=== PATIENT | male | born 1945 | race Hispanic/Latino ===

== ENCOUNTER 2017-06-09 18:57 | Emergency (ER) | payer MEDICARE ==
[2017-06-09 19:11] VITALS: RESP 18; TEMP 98.4; BMI 30.7
--- NOTE | 2017-06-09 19:44 | ED PDOC ---
Arrival/HPI - General Historian: Patient - History of Present Illness Time/Duration: < month - General Chief Complaint: Abnormal Skin Integrity Time Seen by Provider: 06/09/17 19:22 - History of Present Illness Narrative History of Present Illness (Text): 06/09/17 19:43 72 year old male with past medical history of Hyperlipidemia and CAD presents with right lower extremity swelling. Patient accidentally poured hot water on his right leg one month ago. Patient states his leg has been red and swelled up since then. Two weeks ago patient tripped and fell on his knees 2 weeks ago. Patient states the wounds are healing well, and denies having any pain. He further denies having headache, fever, chills, shortness of breath, chest pain, abdominal pain, nausea, vomiting, diarrhea or urinary symptoms. (Angelina Artis) Past Medical History - Provider Review Nursing Documentation Reviewed: Yes - Tetanus Immunization Tetanus Immunization: Unknown - Past Medical History Past Medical History: No Previous - Psychiatric Hx Substance Use: No - Surgical History Hx Open Heart Surgery: Yes - Suicidal Assessment Feels Threatened In Home Enviroment: No Family/Social History - Physician Review Nursing Documentation Reviewed: Yes Family/Social History: Unknown Family HX Smoking Status: Never Smoked Hx Alcohol Use: Yes Frequency of alcohol use: Socially Hx Substance Use: No Hx Substance Use Treatment: No Allergies/Home Meds Allergies/Adverse Reactions: Allergies No Known Allergies Allergy (Verified 06/09/17 19:11) Home Medications: Home Meds Medication Instructions Recorded Confirmed Simvastatin [Simvastatin] 10 mg PO DAILY 06/09/17 06/09/17 Review of Systems - Physician Review All systems were reviewed & negative as marked: Yes - Review of Systems Constitutional: Normal. absent: Fatigue, Weight Change, Fevers Eyes: Normal. absent: Vision Changes ENT: Normal. absent: Hearing Changes Respiratory: Normal. absent: SOB, Cough, Wheezing Cardiovascular: Normal. absent: Chest Pain, Palpitations Gastrointestinal: Normal. absent: Abdominal Pain, Diarrhea, Nausea, Vomiting Genitourinary Male: Normal. absent: Dysuria, Frequency Musculoskeletal: Other. absent: Arthralgias, Back Pain, Neck Pain (right lower extremity swelling) Skin: Other (right lower extremity redness) Neurological: Normal. absent: Headache, Speech Changes Endocrine: Normal Hemo/Lymphatic: Normal Psychiatric: Normal Physical Exam Vital Signs Reviewed: Yes Temperature: Afebrile Blood Pressure: Normal Pulse: Tachycardic Respiratory Rate: Normal Appearance: Positive for: Well-Appearing, Non-Toxic, Comfortable Pain Distress: None Mental Status: Positive for: Alert and Oriented X 3 - Systems Exam Head: Present: Atraumatic, Normocephalic Pupils: Present: PERRL Extroacular Muscles: Present: EOMI Conjunctiva: Present: Normal Mouth: Present: Moist Mucous Membranes Neck: Present: Normal Range of Motion Respiratory/Chest: Present: Clear to Auscultation, Good Air Exchange. No: Respiratory Distress, Accessory Muscle Use Cardiovascular: Present: Regular Rate and Rhythm, Normal S1, S2. No: Murmurs Abdomen: Present: Normal Bowel Sounds. No: Tenderness, Distention, Peritoneal Signs Upper Extremity: Present: Normal Inspection, NORMAL PULSES, Neurovascularly Intact. No: Cyanosis, Edema Lower Extremity: Present: Edema (1+ on RLE), Swelling (RLE), Erythema (RLE), Temperature Abnormalties (RLE warm compared to LLE), Neurovascularly Intact, Other (B/L Knee abrasion wounds healing well). No: Deformity Neurological: Present: GCS=15, CN II-XII Intact, Speech Normal Skin: Present: Warm, Dry Psychiatric: Present: Alert, Oriented x 3, Normal Insight, Normal Concentration Medical Decision Making ED Course and Treatment: 06/09/17 20:05 -RLE venous u/s -Reassess and disposition DDx: Cellulitis, DVT, First degree burn 06/09/17 20:56 RLE Venous U/S negative for DVT 72 year old male presents with right lower extremity swelling and redness. Based on history of physical examination, patient's presenting symptom is consistent with diagnosis of cellulitis. (Angelina Artis) Patient Seen With Resident: In agreement with resident note except as below. Patient was seen and evaluated with resident, came up with plan and treatment together. A 72 year old male presents to the emergency department with right leg swelling and redness that he is unsure when it began. On exam, R lower leg mild erythema, edematous, warm to touch. Doppler negative, will treat with antibiotics for cellulitis, patient states he can follow up with PMD this week, instructed to return to ER for fever , chills, dyspnea, worsening erythema. (Jordi Gaston) - RAD Interpretation Radiology Orders: 06/09/17 19:40 DUPLEX LOWER EXTRM VEIN RIGHT [US] Stat - PA / SENIOR CONSULTANT / Resident Statement MD/DO has reviewed & agrees with the documentation as recorded. MD/DO has examined the patient and agrees with the treatment plan. Disposition/Present on Arrival - Present on Arrival Any Indicators Present on Arrival: No History of DVT/PE: No History of Uncontrolled Diabetes: No Urinary Catheter: No History of Decub. Ulcer: No History Surgical Site Infection Following: None - Disposition Have Diagnosis and Disposition been Completed?: Yes Disposition Time: 20:58 Patient Plan: Discharge - Disposition Diagnosis: Right leg swelling, Cellulitis and abscess of right leg Disposition: HOME/ ROUTINE Patient Problems: Current Active Problems Problem Status Onset Cellulitis and abscess of right leg Acute Right leg swelling Acute Condition: STABLE Discharge Instructions (ExitCare): Cellulitis (ED) Additional Instructions: Scott Tadeo, thank you for letting us take care of you today. Your provider was Dr. Gaston. You were treated for right leg swelling. The emergency medical care you received today was directed at your acute symptoms. If you were prescribed any medication, please fill it and take as directed. It may take several days for your symptoms to resolve. Return to the Emergency Department if your symptoms worsen, do not improve, or if you have any other problems. Please contact your doctor or call one of the physicians/clinics you have been referred to that are listed on the Patient Visit Information form that is included in your discharge packet. Bring any paperwork you were given at discharge with you along with any medications you are taking to your follow up visit. Our treatment cannot replace ongoing medical care by a primary care provider (PCP) outside of the emergency department. Please take antibiotics as prescribed and follow up with your PMD. Thank you for allowing the [facility] team to be part of your care today. Prescriptions: Cephalexin [cephalexin] 500 mg PO TID #30 cap Sulfamethoxazole/Trimethoprim [Bactrim DS 800 mg-160 mg] 1 tab PO BID #20 tab Referrals: Weston Mcrae, [Primary Care Provider] - Follow up with primary
[2017-06-09 21:18] VITALS: BP 134/80; PULSE 85; O2SAT 100
--- NOTE | 2017-06-10 08:56 | US ---
PROCEDURE: Right lower extremity venous US HISTORY: Leg pain and swelling. Evaluate for DVT. PHYSICIAN(S): Genaro Ellis M.D. TECHNIQUE: Duplex sonography and color-flow Doppler with graded compression were used to evaluate the deep venous system of the right lower extremity. FINDINGS: The visualized deep venous system of the right lower extremity is sonographically normal and compressible. Normal waveforms and augmentation are seen. There is no sonographic evidence for deep venous thrombosis in the visualized segments of the right lower extremity. IMPRESSION: 1. No sonographic evidence for deep venous thrombosis in the visualized segments of the right lower extremity.
== END 2017-06-09 21:19 | disposition home or self-care (01) ==
LOC: ED 18:57
DX: L03.115 Cellulitis of right lower limb (principal)

== ENCOUNTER 2017-06-30 21:06 | Emergency (ER) | payer MEDICARE ==
[2017-06-30 21:18] VITALS: BMI 31.4
[2017-06-30 21:21] VITALS: BP 139/94
--- NOTE | 2017-06-30 21:26 | ED PDOC ---
Arrival/HPI - General Historian: Patient - History of Present Illness Time/Duration: > month Symptom Onset: Gradual Symptom Course: Unchanged Severity Level: 1 Activities at Onset: Rest <Vic Wolfe - Last Filed: 06/30/17 23:37> <Kel Thomas - Last Filed: 06/30/17 23:41> - General Chief Complaint: Lower Extremity Problem/Injury Time Seen by Provider: 06/30/17 21:11 - History of Present Illness Narrative History of Present Illness (Text): 06/30/17 21:24 72 yo M with no significant PMHx here for evaluation of right lower leg swelling and erythema. Patient states that he was here last month for the same problems. He states that he had a lower extremity Ultrasound which was negative and was discharged home with 2 antibiotics (Cephalexin and Bactrim x10 days). He finished the course of both antibiotics. He denies any complaints. No fever, No chills. Does not recall if previous erythema ever resolved. States that his friend looked at his leg today and urged him to return to the Emergency department for further evaluation. No pain. No discomfort. Denies any complaints. He does report multiple mechanical falls and trauma to bilateral lower extremities in the past. No loss of consciousness. PMHx: denies PSHX: denies NKDA (Vic Wolfe) Past Medical History - Provider Review Nursing Documentation Reviewed: Yes - Past History Past History: No Previous - Tetanus Immunization Tetanus Immunization: Unknown - Past Medical History Past Medical History: No Previous - Psychiatric Hx Substance Use: No - Surgical History Hx Open Heart Surgery: Yes - Anesthesia Hx Anesthesia: No - Suicidal Assessment Feels Threatened In Home Enviroment: No <Vic Wolfe - Last Filed: 06/30/17 23:37> Family/Social History - Physician Review Nursing Documentation Reviewed: Yes Family/Social History: No Known Family HX Smoking Status: Never Smoked Hx Alcohol Use: Yes Hx Substance Use: No Hx Substance Use Treatment: No <Vic Wolfe - Last Filed: 06/30/17 23:37> Allergies/Home Meds <Vic Wolfe - Last Filed: 06/30/17 23:37> <Kel Thomas - Last Filed: 06/30/17 23:41> Allergies/Adverse Reactions: Allergies No Known Allergies Allergy (Verified 06/30/17 21:17) Home Medications: Home Meds Medication Instructions Recorded Confirmed Simvastatin [Simvastatin] 10 mg PO DAILY 06/09/17 06/30/17 Review of Systems - Physician Review All systems were reviewed & negative as marked: Yes - Review of Systems Constitutional: absent: Fatigue, Fevers Eyes: absent: Vision Changes ENT: absent: Tinnitus Respiratory: absent: SOB, Cough Cardiovascular: absent: Chest Pain, Calf Pain Gastrointestinal: absent: Abdominal Pain, Diarrhea, Nausea, Vomiting Genitourinary Male: absent: Dysuria Musculoskeletal: Other (right lower extremity swelling and erythema) Skin: Cellulitis (RLE) Neurological: Normal Endocrine: Normal Hemo/Lymphatic: Normal Psychiatric: Normal <Vic Wolfe - Last Filed: 06/30/17 23:37> Physical Exam Vital Signs Reviewed: Yes Temperature: Afebrile Blood Pressure: Hypertensive Pulse: Tachycardic Respiratory Rate: Normal Appearance: Positive for: Well-Appearing, Non-Toxic, Comfortable Pain Distress: None Mental Status: Positive for: Alert and Oriented X 3 - Systems Exam Head: Present: Atraumatic, Normocephalic Extroacular Muscles: Present: EOMI Mouth: Present: Moist Mucous Membranes Neck: Present: Normal Range of Motion. No: JVD Respiratory/Chest: Present: Clear to Auscultation, Good Air Exchange. No: Respiratory Distress, Accessory Muscle Use Cardiovascular: Present: Normal S1, S2. No: Murmurs Abdomen: Present: Tenderness Upper Extremity: Present: Normal Inspection. No: Edema Lower Extremity: Present: Other (Right mcclain mild erythema, right foot mild erythema. Right Calf swelling. No tenderness. ). No: CALF TENDERNESS Neurological: Present: GCS=15 Skin: Present: Warm, Dry, Other (mild erythema right lower mcclain and foot. No tenderness to ) Psychiatric: Present: Alert, Oriented x 3 <Vic Wolfe - Last Filed: 06/30/17 23:37> Medical Decision Making <Vic Wolfe - Last Filed: 06/30/17 23:37> <Kel Thomas - Last Filed: 06/30/17 23:41> ED Course and Treatment: 06/30/17 21:51 72yo M with Right lower extremity swelling and erythema. - Negative DVT study 1 month ago - Possible Cellulitis - Repeat Lower extremity Duplex study - Obtain RLE xrays - Reassess and dispo 06/30/17 22:51 Duplex study prelim negative DVT study (Vic Wolfe) Patient Seen With Resident: In agreement with resident note which contains more details about the patient. Patient was seen and evaluated with resident. Came up with plan and treatment together. A 72 year old male with right lower leg swelling. Additional HPI as noted by resident. On physical exam, patient has right mcclain and foot mild erythema and right calf swelling, no tenderness. Ordered ultrasound of lower extremity and radiology of right ankle and right tibia fibula. 06/30/17 23:35 Exam with minimal erythema but no warmth; swelling is present. X-ray shows old healing fibula fx. Sono negative for DVT. Finished course of abx of keflex and bactrim with no change. It is more likely uninfected. The patient has no pain - will d/c and have him f/u with wound assessment with podiatry. No findings to suggest abx use at this time. (Kel Thomas) - RAD Interpretation Radiology Orders: 06/30/17 21:18 DUPLEX LOWER EXTRM VEIN BILAT [US] Stat 06/30/17 21:27 ANKLE RIGHT 3 VIEWS ROUTINE [RAD] Stat TIBIA FIBULA RIGHT [RAD] Stat - PA / MYSQL DBA / Resident Statement KAREN has reviewed & agrees with the documentation as recorded. KAREN has examined the patient and agrees with the treatment plan. <Vic Wolfe - Last Filed: 06/30/17 23:37> - PA / MYSQL DBA / Resident Statement KAREN has reviewed & agrees with the documentation as recorded. KAREN has examined the patient and agrees with the treatment plan. <Kel Thomas - Last Filed: 06/30/17 23:41> Disposition/Present on Arrival - Present on Arrival Any Indicators Present on Arrival: No History of DVT/PE: No History of Uncontrolled Diabetes: No Urinary Catheter: No History of Decub. Ulcer: No History Surgical Site Infection Following: None - Disposition Have Diagnosis and Disposition been Completed?: Yes Disposition Time: 22:53 Patient Plan: Discharge <Vic Wolfe - Last Filed: 06/30/17 23:37> <Kel Thomas - Last Filed: 06/30/17 23:41> - Disposition Diagnosis: Right leg swelling, Dry skin Disposition: HOME/ ROUTINE Condition: GOOD Discharge Instructions (ExitCare): Leg Edema (ED) Additional Instructions: 1. Follow up with your primary care physician within 1 week 2. Follow up with Podiatry. Call for appointment 3. Use moisturizing lotion to affected area on right lower leg 4. Rest and elevate lower extremity and use tight stockings. 5. Return to the ER with any concerning symptoms Referrals: Abebe Gr DPM [Staff Provider] - Follow up with primary Forms: Wickr (M[place]oth[place])
[2017-06-30 23:52] VITALS: PULSE 99; TEMP 98.2; O2SAT 98
[2017-06-30 23:53] VITALS: RESP 16
--- NOTE | 2017-07-01 09:30 | RAD ---
PROCEDURE: Right Ankle Radiographs. HISTORY: Hx of trauma. hx of cellulitis COMPARISON: None FINDINGS: BONES: Old fracture deformity of the distal fibula. No acute fractures JOINTS: Normal. No osteoarthritis. Ankle mortise maintained. Talar dome intact SOFT TISSUES: Normal. OTHER FINDINGS: None. IMPRESSION: No acute findings
--- NOTE | 2017-07-01 09:31 | RAD ---
PROCEDURE: Radiographs of the right tibia and fibula. HISTORY: Hx of Trauma. Hx of cellulitis COMPARISON: None available. TECHNIQUE: Frontal and lateral views obtained. FINDINGS: BONES: No fracture or destructive lesion. JOINT SPACES: Unremarkable. OTHER FINDINGS: None. IMPRESSION: Unremarkable radiographs of the right tibia and fibula.
--- NOTE | 2017-07-01 17:09 | US ---
HISTORY: Leg pain and swelling. Evaluate for DVT PHYSICIAN(S): Genaro Ellis MD. TECHNIQUE: Duplex sonography and color-flow Doppler with graded compression were used to evaluate the deep venous systems of both lower extremities. The exam is somewhat limited by edema FINDINGS: The visualized deep venous systems of both lower extremities are sonographically normal and compressible. Normal wave forms and augmentation are seen. There is no sonographic evidence for deep venous thrombosis in the visualized segments of both lower extremities. IMPRESSION: No sonographic evidence for deep venous thrombosis in the visualized segments of both lower extremities.
== END 2017-06-30 23:55 | disposition home or self-care (01) ==
LOC: ED 21:06
DX: M79.89 Other specified soft tissue disorders (principal); L85.3 Xerosis cutis

== ENCOUNTER 2018-01-06 17:23 | Inpatient (IN) | payer MEDICARE ==
[2018-01-06 18:05] VITALS: BMI 27.7
--- NOTE | 2018-01-06 20:10 | ED PDOC ---
Arrival/HPI - General Chief Complaint: Lower Extremity Problem/Injury Time Seen by Provider: 01/06/18 19:40 Historian: Patient - History of Present Illness Narrative History of Present Illness (Text): 01/06/18 20:08 Scott Tadeo is a 72 year old male, whose past medical history includes hyperlipidemia, who presents to the emergency department complaining of redness and discomfort to left lower extremity for 3 days. Patient also complains of subjective fever. Patient states that he has a history in the past of cellulitis to opposite leg but denies any history of recent injury. Patient denies any calf pain or any other complaints at this time. Time/Duration: < week Symptom Onset: Gradual Symptom Course: Unchanged Activities at Onset: Light Context: Home Past Medical History - Provider Review Nursing Documentation Reviewed: Yes - Past History Past History: No Previous - Infectious Disease Hx of Infectious Diseases: None - Tetanus Immunization Tetanus Immunization: Unknown - Past Medical History Past Medical History: No Previous - Psychiatric Hx Substance Use: No - Surgical History Hx Open Heart Surgery: Yes - Anesthesia Hx Anesthesia: No Hx Anesthesia Reactions: No Hx Malignant Hyperthermia: No - Suicidal Assessment Feels Threatened In Home Enviroment: No Family/Social History - Physician Review Nursing Documentation Reviewed: Yes Family/Social History: No Known Family HX Smoking Status: Never Smoked Hx Alcohol Use: Yes Hx Substance Use: No Hx Substance Use Treatment: No Allergies/Home Meds Allergies/Adverse Reactions: Allergies No Known Allergies Allergy (Verified 06/30/17 21:17) Home Medications: Home Meds Medication Instructions Recorded Confirmed Simvastatin [Simvastatin] 10 mg PO DAILY 06/09/17 01/06/18 Review of Systems - Physician Review All systems were reviewed & negative as marked: Yes - Review of Systems Constitutional: absent: Fevers, Night Sweats Eyes: absent: Vision Changes ENT: absent: Hearing Changes Respiratory: absent: SOB, Cough Cardiovascular: absent: Chest Pain Gastrointestinal: absent: Abdominal Pain Genitourinary Male: absent: Dysuria, Frequency Musculoskeletal: Other (Redness and discomfort to left lower extremity) Skin: absent: Rash, Pruritis Neurological: absent: Headache Endocrine: absent: Diaphoresis Hemo/Lymphatic: absent: Adenopathy Psychiatric: absent: Anxiety, Depression Physical Exam Vital Signs Reviewed: Yes Vital Signs Temp Pulse Resp BP Pulse Ox 01/06/18 17:23 99 F 94 H 18 132/92 H 96 Temperature: Afebrile Blood Pressure: Hypertensive Pulse: Tachycardic Respiratory Rate: Normal Pain Distress: None - Systems Exam Head: Present: Atraumatic, Normocephalic Pupils: Present: PERRL Extroacular Muscles: Present: EOMI Conjunctiva: Present: Normal Mouth: Present: Moist Mucous Membranes Neck: Present: Normal Range of Motion Respiratory/Chest: Present: Clear to Auscultation, Good Air Exchange. No: Respiratory Distress, Accessory Muscle Use Cardiovascular: Present: Regular Rate and Rhythm, Normal S1, S2. No: Murmurs Abdomen: Present: Normal Bowel Sounds. No: Tenderness, Distention, Peritoneal Signs Back: Present: Normal Inspection Upper Extremity: Present: Normal Inspection. No: Cyanosis, Edema Lower Extremity: Present: Erythema (confluent erythema to anterior lateral left LE, extending from below knee to distal foot; palpable tenderness anteriorly;). No: Josiane's Sign, Tenderness (No Calf tenderness) Neurological: Present: GCS=15, CN II-XII Intact, Speech Normal Skin: Present: Warm, Dry, Normal Color. No: Rashes Psychiatric: Present: Alert, Oriented x 3, Normal Insight, Normal Concentration Medical Decision Making ED Course and Treatment: 01/06/18 20:14 Impression: 72 year old male complaining of redness and discomfort to left lower extremity for 3 days. DIff.DX- Cellulitis vs. DVT Plan: -- LE Ultrasound -- Blood Culture -- Labs -- Reassess and disposition Prior Visits: Notes and results from previous visits were reviewed. Patient was last seen in the emergency department on 06/30/17 for evaluation of right lower leg swelling and erythema. Patient was discharged home. Progress Notes: 01/06/18 22:04 Case was d/w .She accepts to her service.Dr. Wright ID consult to follow. - Lab Interpretations Lab Results: 01/06/18 20:40 01/06/18 20:40 Lab Results 01/07/18 14:00: ESR 72 H 01/07/18 13:00: C-React Prot High Sens > 15.00 H 01/07/18 07:00: Triglycerides 90, Cholesterol 107 L, LDL Cholesterol Direct 61, HDL Cholesterol 26 L, Vitamin B12 203 L, Folate 16.5 01/07/18 07:00: Hemoglobin A1c 5.9 01/07/18 07:00: Iron 20 L, TIBC 254 L, % Saturation 8 L 01/06/18 20:40: WBC 9.9, RBC 4.28, Hgb 13.5 L, Hct 40.9 L, MCV 95.6, MCH 31.5, MCHC 33.0, RDW 12.9, Plt Count 205, MPV 11.1 H 01/06/18 20:40: Sodium 137, Potassium 4.5, Chloride 102, Carbon Dioxide 26, Anion Gap 14, BUN 20, Creatinine 0.9, Est GFR ( Amer) > 60, Est GFR (Non- Af Amer) > 60, Random Glucose 90, Calcium 9.2, Total Bilirubin 0.4, AST 29, ALT 31, Alkaline Phosphatase 76, Total Protein 6.5, Albumin 3.6, Globulin 2.9, Albumin/Globulin Ratio 1.2 - RAD Interpretation Narrative RAD Interpretations (Text): 01/06/18 20:25 Venous doppler U/S- negative for DVT Radiology Orders: 01/06/18 19:51 DUPLEX LOWER EXTRM VEIN LEFT [US] Stat - Medication Orders Current Medication Orders: Atorvastatin Calcium (Lipitor) 10 mg PO DIN KATRIN Enoxaparin Sodium (Lovenox) 30 mg SC DAILY KATRIN PRN Reason: Protocol Last Admin: 01/07/18 09:41 Dose: 30 mg Subcutaneous Administrations Document 01/07/18 09:41 SES (Rec: 01/07/18 09:41 SES [facility] [place]-[id number]) Injection Site MAR Injection Site Right Abdomen Charges for Administration # of Subcutaneous Administrations 1 Famotidine (Pepcid) 40 mg PO HS KATRIN Morphine Sulfate (Morphine) 1.5 mg IVP Q4H PRN PRN Reason: Pain, Mild (1-3) Discontinued Medications Hydromorphone HCl (Dilaudid) 0.25 mg IVP Q4H PRN PRN Reason: Pain, Mild (1-3) Piperacillin Sod/Tazobactam Sod (Zosyn 3.375 In Ns 100ml) 100 mls @ 200 mls/hr IV STAT STA PRN Reason: Protocol Stop: 01/06/18 22:00 Last Admin: 01/06/18 22:55 Dose: 200 mls/hr eMAR Start Stop Document 01/06/18 22:55 EQ (Rec: 01/06/18 22:55 EQ [id number]) Intravenous Solution Start Date 01/06/18 Start Time 22:55 Vancomycin HCl (Vancomycin 1gm) 1 gm in 250 mls @ 166.667 mls/hr IVPB STAT STA Stop: 01/06/18 23:10 Last Admin: 01/06/18 23:39 Dose: 166.667 mls/hr eMAR Start Stop Document 01/06/18 23:39 RD (Rec: 01/06/18 23:39 RD [facility] [place]-[id number]) Intravenous Solution Start Date 01/06/18 Start Time 23:39 End Date 01/07/18 End time 01:09 Total Infusion Time 90 Piperacillin Sod/Tazobactam Sod (Zosyn 2.25 Gm In 0.9% 100 Ml) 2.25 gm in 100 mls @ 100 mls/hr IVPB Q6 KATRIN PRN Reason: Protocol Stop: 01/07/18 12:59 Last Admin: 01/07/18 11:44 Dose: 100 mls/hr eMAR Start Stop Document 01/07/18 11:44 SES (Rec: 01/07/18 11:45 SES [facility] [id number]) Intravenous Solution Start Date 01/07/18 Start Time 11:45 End Date 01/07/18 End time 12:45 Total Infusion Time 60 - Scribe Statement The provider has reviewed the documentation as recorded by the Alicia Harrell Provider Scribe Attestation: All medical record entries made by the Scribe were at my direction and personally dictated by me. I have reviewed the chart and agree that the record accurately reflects my personal performance of the history, physical exam, medical decision making, and the department course for this patient. I have also personally directed, reviewed, and agree with the discharge instructions and disposition. Disposition/Present on Arrival - Present on Arrival Any Indicators Present on Arrival: No History of DVT/PE: No History of Uncontrolled Diabetes: No Urinary Catheter: No History of Decub. Ulcer: No History Surgical Site Infection Following: None - Disposition Have Diagnosis and Disposition been Completed?: Yes Diagnosis: Cellulitis Disposition: HOSPITALIZED Disposition Time: 22:06 Patient Plan: Observation Patient Problems: Current Active Problems Problem Status Onset Cellulitis Acute Condition: GOOD
[2018-01-06 21:11] LABS: HEMOGLOBIN 13.5 g/dL (14.0-18.0); MEAN CELL VOLUME 95.6 fl (80.0-105.0); MEAN CORPUSCULAR HEMOGLOBIN 31.5 pg (25.0-35.0); MEAN PLATELET VOLUME 11.1 fl (7.0-11.0); RBC 4.28 10^6/uL (3.5-6.1); RED CELL DISTRIBUTION WIDTH 12.9 % (11.5-14.5); WHITE BLOOD COUNT 9.9 10^3/ul (4.5-11.0)
[2018-01-06 21:23] LABS: ALB/GLOB RATIO 1.2 (1.1-1.8); ALBUMIN 3.6 g/dL (3.0-4.8); ALT/SGPT 31 U/L (7-56); AST/SGOT 29 U/L (17-59); BLOOD UREA NITROGEN 20 mg/dL (7-21); CALCIUM 9.2 mg/dL (8.4-10.5); GFR AFRICAN-AMERICAN > 60; GFR NON-AFRICAN AMERICAN > 60
[2018-01-06] MEDS ORDERED: Vancomycin 1 gm/D5W 200 ml 1 GM/200 ML BAG IV STA (21:31)
[2018-01-06] MEDS ORDERED: Piperacillin/Tazobact 3.375 gm 100 ML IV STA (21:31)
[2018-01-06] MEDS ORDERED: Vancomycin 1gm in NS 250ml 1 GM/250 ML BAG IVPB STA (21:41)
[2018-01-07] MEDS ORDERED: HYDROmorphone 0.5 mg/0.5 ml ISec IVP PRN (01:06)
[2018-01-07 04:31] VITALS: RESP 20
[2018-01-07] MEDS: Piperacillin/Tazobact 2.25gm 2.25 GM/100 ML BAG IVPB SCH ×2 (06:25→11:44)
[2018-01-07 08:02] LABS: IRON 20 ug/dL (45-180)
[2018-01-07 08:12] LABS: % IRON SATURATION 8 % (20-55); TOTAL IRON BINDING CAPACITY 254 ug/dL (261-462)
[2018-01-07] MEDS: Enoxaparin 30 mg Syringe SC SCH (09:41)
--- NOTE | 2018-01-07 13:05 | HP ---
DATE OF EXAM: 01/06/2018 The patient was seen and examined on 01/06/2018. CHIEF COMPLAINT: Lower leg pain. HISTORY OF PRESENT ILLNESS: Mr. Scott Tadeo is a 72-year-old male with past medical history of hypercholesterolemia, came to the emergency department complaining of redness, warmth, and discomfort of the left lower extremity for 3 days. The patient is also complaining of subjective fever. The patient states that he has a history in the past of cellulitis of opposite leg but denies any history of recent injury. Denies any calf pain or any other complaints. PAST MEDICAL HISTORY: History of open heart surgery, hypertension, hypercholesterolemia, and history of cellulitis of the leg. FAMILY HISTORY: Father and mother, noncontributory. HABITS: Never smoked. No drugs. Ethanol socially. ALLERGIES: PATIENT IS NOT ALLERGIC WITH ANY MEDICATION. HOME MEDICATION: Simvastatin. REVIEW OF SYSTEMS: The patient is seen and examined on the bedside, looking comfortable except swelling of the leg and red warm legs. No fever. No night sweats. No vision changes. No hearing loss. No shortness of breath or cough. No chest pain. No abdominal pain. No dysuria or frequency. Having redness and discomfort of the lower extremity. No pruritus of the skin. No diaphoresis. No adenopathy or depression. No palpitation. No headache or dizziness. PHYSICAL EXAMINATION: VITAL SIGNS: Temperature 99, pulse 94, respiratory rate 18, blood pressure 132/96, pulse oximetry is 96. HEENT: Head: Normocephalic, atraumatic. Eyes: PERRLA. Extraocular muscles are intact. Conjunctivae are clear. Nose patent. Mucous membranes moist. NECK: Supple. No carotid bruits, JVD, or thyromegaly. CHEST: Bilaterally symmetrical. HEART: S1 and S2 positive. LUNGS: Clear to auscultation. ABDOMEN: Soft. Bowel sounds positive. No organomegaly. EXTREMITIES: Positive edema, redness, and warmth. NEUROLOGICAL: The patient is awake and alert, obeying simple orders. LABORATORY DATA: White blood cells 9.9, hemoglobin 13.5, hematocrit 40.9, platelets 205. Sodium 137, potassium 4.5, BUN 20, creatinine 0.9, glucose 90. ASSESSMENT AND PLAN: Mr. Scott Tadeo is a 72-year-old male with anemia; history of hypercholesterolemia, hypertension, came with cellulitis of the leg, on vancomycin and Zosyn. Cellulitis of the leg, ID consult called. History of cellulitis of the leg in the past. Extremity ultrasound done, results are pending. The patient got hydromorphone for pain, Lipitor for hypercholesterolemia, Lovenox for DVT prophylaxis, Pepcid for GI prophylaxis. We will continue antibiotics. We will follow up. Mari Rai MD
--- NOTE | 2018-01-07 13:42 | US ---
PROCEDURE: Left lower extremity venous US HISTORY: Leg pain and swelling. Evaluate for DVT. PHYSICIAN(S): Genaro Ellis MD. TECHNIQUE: Duplex sonography and color-flow Doppler with graded compression were used to evaluate the deep venous system of the left lower extremity. FINDINGS: The visualized deep venous system of the left lower extremity is sonographically normal and compressible. Normal wave forms and augmentation are seen. There is no sonographic evidence for deep venous thrombosis in the visualized segments of the left lower extremity. IMPRESSION: 1. No sonographic evidence for deep venous thrombosis in the visualized segments of the left lower extremity.
[2018-01-07 13:43] LABS: FOLATE 16.5 ng/mL
[2018-01-07] MEDS ORDERED: Morphine 2 mg/ml ISec IVP PRN (13:48)
--- NOTE | 2018-01-07 23:22 | CP.PCM.CON ---
History of Present Illness - History of Present Illness History of Present Illness: Infectious Disease Consultation: January 07, 2018 72 yo male with cellulitis to the left lower leg. Patient states that this is the second time this has happened to him within the past year but of the other leg. He only gives a history of hypercholesterolemia, Depression, and PTSD. The patient receives his care at the [facility] in [place] and has a 70% compensation level. He is a of the [place] and believes he had exposure to Agent [place]. The patient is noted to have swelling of the left lower leg as well. PMHx: Hypercholesterolemia, Depression, PTSD Likely HTN and CAD given history of Open heart surgery PSHx: Open heart surgery Allergies: NKDA Social Hx: No tobacco or illicit drug use Social EtOH Active Medications Atorvastatin Calcium (Lipitor) 10 mg PO DIN [facility] Last Admin: 01/07/18 18:29 Dose: 10 mg Enoxaparin Sodium (Lovenox) 30 mg SC DAILY [facility] PRN Reason: Protocol Last Admin: 01/07/18 09:41 Dose: 30 mg Famotidine (Pepcid) 40 mg PO HS [facility] Last Admin: 01/07/18 22:36 Dose: Not Given Morphine Sulfate (Morphine) 1.5 mg IVP Q4H PRN PRN Reason: Pain, Mild (1-3) Family Hx: none given ROS: swelling ot hte left leg with erythema. No fevers, chills, nausea, vomiting, diarrhea, headaches, dizziness, chest pain , abdominal pain, melena, hematuria, hematemesis, hematochezia History of Anxiety, Depression Past Patient History - Infectious Disease Hx of Infectious Diseases: None - Tetanus Immunizations Tetanus Immunization: Unknown - Past Social History Smoking Status: Never Smoked - MUSCULOSKELETAL/RHEUMATOLOGICAL Hx Falls: No - PSYCHIATRIC Hx Substance Use: No - SURGICAL HISTORY Hx Open Heart Surgery: Yes - ANESTHESIA Hx Anesthesia: No Hx Anesthesia Reactions: No Hx Malignant Hyperthermia: No Meds Allergies/Adverse Reactions: Allergies Allergy/AdvReac Type Severity Reaction Status Date / Time No Known Allergies Allergy Verified 06/30/17 21:17 - Medications Medications: Current Medications Atorvastatin Calcium (Lipitor) 10 mg PO DIN [facility] Last Admin: 01/07/18 18:29 Dose: 10 mg Enoxaparin Sodium (Lovenox) 30 mg SC DAILY [facility] PRN Reason: Protocol Last Admin: 01/07/18 09:41 Dose: 30 mg Famotidine (Pepcid) 40 mg PO HS [facility] Last Admin: 01/07/18 22:36 Dose: Not Given Morphine Sulfate (Morphine) 1.5 mg IVP Q4H PRN PRN Reason: Pain, Mild (1-3) Physical Exam - Constitutional Appears: Non-toxic, No Acute Distress - Head Exam Head Exam: ATRAUMATIC, NORMOCEPHALIC - Eye Exam Eye Exam: EOMI, PERRL Pupil Exam: NORMAL ACCOMODATION, PERRL - ENT Exam ENT Exam: Mucous Membranes Moist, Normal External Ear Exam, TM's Normal Bilaterally - Neck Exam Neck exam: Positive for: Full Rom, Normal Inspection - Respiratory Exam Respiratory Exam: Clear to Auscultation Bilateral, NORMAL BREATHING PATTERN. absent: Rales, Rhonchi, Wheezes - Cardiovascular Exam Cardiovascular Exam: REGULAR RHYTHM, RRR, +S1, +S2 - GI/Abdominal Exam GI & Abdominal Exam: Normal Bowel Sounds, Soft. absent: Distended, Tenderness - Extremities Exam Extremities exam: Positive for: full ROM, normal inspection Additional comments: except for +2 edema of the left lower leg with diffuse erythema and warmth - Neurological Exam Neurological exam: Alert, CN II-XII Intact, Oriented x3 - Psychiatric Exam Psychiatric exam: Normal Affect, Normal Mood - Skin Skin Exam: Intact, Normal Color Additional comments: except left lower leg with erythema, swelling, and increased warmth. Results - Vital Signs Recent Vital Signs: Last Vital Signs Temp 97.8 F 01/07/18 07:30 Pulse 70 01/07/18 07:30 Resp 20 01/07/18 07:30 BP 120/71 01/07/18 07:30 Pulse Ox 97 01/07/18 07:30 - Labs Result Diagrams: 01/06/18 20:40 01/06/18 20:40 Assessment & Plan - Assessment and Plan (Free Text) Assessment: 72 yo male with left lower leg cellulitis given Vancomycin and Zosyn in ER. Medical history includes hypercholesterolemia, hypertension, PTSD, depression, and likely CAD. Lower extremity ultrasound did not show any obstructions of clots. Patient is a [place] . Continue on Zosyn for now. Supportive care. Thank you for allowing me to participate in the care of the patient, we will follow with you.
--- NOTE | 2018-01-08 03:05 | PN ---
DATE: SUBJECTIVE: Patient seen and examined at the bedside. Looking comfortable. Still has redness and warmth of the legs, especially left leg. No fever, no chills. No headache, no dizziness. No chest pain, no palpitation. No hematuria or hematochezia. PHYSICAL EXAMINATION: VITAL SIGNS: Temperature 97.8, pulse 70, blood pressure 120/70, respiratory rate 20. HEENT: Head normocephalic, atraumatic. Eyes, PERRLA. Extraocular muscles intact. Conjunctivae clear. Nose patent. Mucous membranes are moist. NECK: Supple. No carotid bruit. No JVD or thyromegaly. CHEST: Bilaterally symmetrical. HEART: S1 and S2, positive. LUNGS: Clear to auscultation. ABDOMEN: Soft, Bowel sounds positive. No organomegaly. EXTREMITIES: Upper extremities, no edema, no cyanosis. Left leg is red, warm. NEUROLOGIC: The patient is awake and alert. Moving all 4 extremities. No focal deficit. LABORATORY DATA: White blood cell 9.9, hemoglobin 13.5, hematocrit 40.9. Iron 20. MEDICATIONS: Lipitor, Lovenox, morphine, Pepcid. ASSESSMENT AND PLAN: Mr. Scott Tadeo is a 72-year-old male with anemia, iron deficiency, cellulitis of the legs. Doppler of the extremity done, reviewed by me. History of hypercholesterolemia, history of open heart surgery, history of cellulitis of the legs, now came with cellulitis of the legs. Antibiotics started, Zosyn and vancomycin. ID consult called. GI and DVT prophylaxis. Repeat labs. We will follow up. Mari Rai MD
[2018-01-08] MEDS: Piperacillin/Tazobact 3.375 gm 100 ML IVPB SCH ×4 (06:43→23:40)
[2018-01-08 07:14] LABS: HEMOGLOBIN 12.9 g/dL (14.0-18.0); MEAN CELL VOLUME 95.7 fl (80.0-105.0); MEAN CORPUSCULAR HEMOGLOBIN 30.6 pg (25.0-35.0); MEAN CORPUSCULAR HGB CONC 31.9 g/dl (31.0-37.0); MEAN PLATELET VOLUME 10.8 fl (7.0-11.0); RBC 4.22 10^6/uL (3.5-6.1); WHITE BLOOD COUNT 8.1 10^3/ul (4.5-11.0)
[2018-01-08 07:51] LABS: BLOOD UREA NITROGEN 12 mg/dL (7-21); CALCIUM 8.8 mg/dL (8.4-10.5); GFR AFRICAN-AMERICAN > 60; GFR NON-AFRICAN AMERICAN > 60
[2018-01-08] MEDS: Enoxaparin 30 mg Syringe SC SCH (09:03)
--- NOTE | 2018-01-08 16:34 | CP.PCM.PN ---
Subjective - Date & Time of Evaluation Date of Evaluation: 01/08/18 Time of Evaluation: 15:00 - Subjective Subjective: Infectious Disease Follow Up: January 08, 2018 72 yo male with cellulitis to the left lower leg. Patient states that this is the second time this has happened to him within the past year but of the other leg. He only gives a history of hypercholesterolemia, Depression, and PTSD. The patient receives his care at the [facility] in [place] and has a 70% compensation level. He is a [place] of the [place] and believes he had exposure to Agent [place]. The patient is noted to have swelling of the left lower leg as well. Erythema appears to be decreasing while there is swelling and warmth of the left lower leg. Objective - Vital Signs/Intake and Output Vital Signs (last 24 hours): Temp Pulse Resp BP Pulse Ox 98.4 F 69 20 122/63 97 01/08/18 07:30 01/08/18 07:30 01/08/18 07:30 01/08/18 13:34 01/08/18 07:30 Intake and Output: 01/08/18 01/08/18 06:59 18:59 Intake Total 900 480 Output Total 1000 300 Balance -100 180 - Medications Medications: Current Medications Atorvastatin Calcium (Lipitor) 10 mg PO DIN [facility] Last Admin: 01/07/18 18:29 Dose: 10 mg Enoxaparin Sodium (Lovenox) 30 mg SC DAILY [facility] PRN Reason: Protocol Last Admin: 01/08/18 09:03 Dose: 30 mg Famotidine (Pepcid) 40 mg PO HS [facility] Last Admin: 01/07/18 22:36 Dose: Not Given Furosemide (Lasix) 40 mg PO DAILY [facility] Last Admin: 01/08/18 13:34 Dose: 40 mg Piperacillin Sod/Tazobactam Sod (Zosyn 3.375 In Ns 100ml) 100 mls @ 200 mls/hr IVPB Q6 [facility] PRN Reason: Protocol Last Admin: 01/08/18 12:17 Dose: 200 mls/hr Morphine Sulfate (Morphine) 1.5 mg IVP Q4H PRN PRN Reason: Pain, Mild (1-3) - Labs Labs: 01/08/18 06:45 01/08/18 06:45 - Constitutional Appears: Non-toxic, No Acute Distress - Head Exam Head Exam: ATRAUMATIC, NORMOCEPHALIC - Eye Exam Eye Exam: EOMI, PERRL Pupil Exam: NORMAL ACCOMODATION, PERRL - ENT Exam ENT Exam: Mucous Membranes Moist, Normal External Ear Exam, TM's Normal Bilaterally - Neck Exam Neck Exam: Full ROM, Normal Inspection - Respiratory Exam Respiratory Exam: Clear to Ausculation Bilateral, NORMAL BREATHING PATTERN. absent: Rales, Rhonchi, Wheezes - Cardiovascular Exam Cardiovascular Exam: REGULAR RHYTHM, RRR, +S1, +S2 - GI/Abdominal Exam GI & Abdominal Exam: Soft, Normal Bowel Sounds. absent: Distended, Tenderness - Extremities Exam Extremities Exam: Full ROM, Normal Inspection Additional comments: except for +2 edema of the left lower leg with diffuse erythema and warmth - Neurological Exam Neurological Exam: Alert, Awake, CN II-XII Intact, Oriented x3 - Psychiatric Exam Psychiatric exam: Normal Affect, Normal Mood - Skin Skin Exam: Intact, Normal Color Additional comments: except left lower leg with erythema, swelling, and increased warmth. Assessment and Plan - Assessment and Plan (Free Text) Assessment: 72 yo male with left lower leg cellulitis given Vancomycin and Zosyn in ER. Medical history includes hypercholesterolemia, hypertension, PTSD, depression, and likely CAD. Lower extremity ultrasound did not show any obstructions of clots. Patient is a [place] . Continue on Zosyn for now. Supportive care. May need further evaluation for PVD/PAD. When ready for discharge, may consider use of Augmentin 875mg BID for 10 days on discharge. Thank you for allowing me to participate in the care of the patient, we will follow with you.
[2018-01-08 22:19] VITALS: O2SAT 94
--- NOTE | 2018-01-09 05:28 | PN ---
DATE: SUBJECTIVE: Patient is a 72-year-old male. Patient was seen and examined on the bedside. Looking comfortable. No nausea, vomiting or diarrhea. No hematuria or hematochezia. Swelling of the leg is getting better. No headache. No dizziness seen. When I saw, he was sitting on the chair. PHYSICAL EXAMINATION: VITAL SIGNS: Temperature 98.4, pulse 75, blood pressure 150/70, respiratory rate 20. HEENT: Head normocephalic, atraumatic. Eyes, PERRLA. Extraocular muscles intact. Conjunctivae clear. Nose patent. NECK: Supple. No carotid bruit. No JVD or thyromegaly. CHEST: Bilaterally symmetrical. HEART: S1 and S2, positive. LUNGS: Clear to auscultation. ABDOMEN: Soft. Bowel sounds present. No organomegaly. EXTREMITIES: Trace edema and redness. NEUROLOGIC: The patient is awake and alert. Moving all four extremities. No focal deficit. MEDICATIONS: Lasix, Lipitor, Lovenox, morphine, Pepcid, Zosyn. LABS: White blood cells 8.1, hemoglobin 12.9, hematocrit 40.4, platelets 212. Sodium 139, potassium 4.4, BUN 12, creatinine 0.9. ASSESSMENT AND PLAN: Mr. Scott Tadeo is a 72-year-old male with anemia; vitamin B12 deficiency, we will replace; came with cellulitis of the legs, seen by Dr. Wright, Infectious Disease; history of hypercholesterolemia; depression; posttraumatic stress disorder; history of coronary artery disease; came in with swelling of the leg. Lower extremity ultrasound did not show any obstruction, clots, or deep vein thrombosis. Patient is a [place] . Plan is to continue Zosyn. May need further evaluation for peripheral vascular disease or peripheral arterial disease. discharge. May consider use of Augmentin b.i.d. for 10 days. Gastrointestinal and deep venous thrombosis prophylaxis. Repeat labs. Getting physical therapy. We will follow up. Mari Rai MD
[2018-01-09] MEDS: Piperacillin/Tazobact 3.375 gm 100 ML IVPB SCH ×2 (06:14→11:58)
[2018-01-09 07:31] LABS: HEMOGLOBIN 12.7 g/dL (14.0-18.0); MEAN CELL VOLUME 95.7 fl (80.0-105.0); MEAN CORPUSCULAR HEMOGLOBIN 30.5 pg (25.0-35.0); MEAN CORPUSCULAR HGB CONC 31.9 g/dl (31.0-37.0); MEAN PLATELET VOLUME 10.7 fl (7.0-11.0); RBC 4.16 10^6/uL (3.5-6.1); WHITE BLOOD COUNT 8.1 10^3/ul (4.5-11.0)
[2018-01-09 08:03] LABS: ALBUMIN 3.1 g/dL (3.0-4.8); ALT/SGPT 23 U/L (7-56); AST/SGOT 19 U/L (17-59); BLOOD UREA NITROGEN 13 mg/dL (7-21); CALCIUM 9.1 mg/dL (8.4-10.5); GFR AFRICAN-AMERICAN > 60; GFR NON-AFRICAN AMERICAN > 60
[2018-01-09 08:31] VITALS: BP 123/81; PULSE 82; TEMP 97.6
[2018-01-09] MEDS: Enoxaparin 30 mg Syringe SC SCH (09:33)
--- NOTE | 2018-01-09 13:25 | US ---
PROCEDURE: Lower extremity RAHAT exam HISTORY: Peripheral vascular disease with pain and claudication. PHYSICIAN(S): Genaro Ellis MD. FINDINGS: The resting RAHAT's are normal: right, 1.32and left, 1.23. The brachial systolic pressures are symmetric. The high thigh pressures and waveforms are relatively normal. The calf PVR waveforms augment normally. No significant gradients are noted across the thighs. The ankle and metatarsal waveforms are relatively normal and symmetric. No significant pressure gradients are noted across the lower legs. IMPRESSION: 1. Normal RAHAT and PVR examination at rest.
--- NOTE | 2018-01-09 16:28 | CP.PCM.PN ---
Subjective - Date & Time of Evaluation Date of Evaluation: 01/09/18 Time of Evaluation: 11:00 - Subjective Subjective: Infectious Disease Follow Up: January 09, 2018 72 yo male with cellulitis to the left lower leg. Patient states that this is the second time this has happened to him within the past year but of the other leg. He only gives a history of hypercholesterolemia, Depression, and PTSD. The patient receives his care at the [facility] in [place] and has a 70% compensation level. He is a [place] of the [place] and believes he had exposure to Agent [place]. The patient is noted to have swelling of the left lower leg as well. Erythema appears to be decreasing while there is swelling and warmth of the left lower leg. Patient otherwise comfortable. Objective - Vital Signs/Intake and Output Vital Signs (last 24 hours): Temp Pulse Resp BP Pulse Ox 97.6 F 82 20 123/81 94 L 01/09/18 07:00 01/09/18 07:00 01/09/18 07:00 01/09/18 09:32 01/09/18 07:00 Intake and Output: 01/09/18 01/09/18 06:59 18:59 Intake Total 480 Output Total 500 Balance -20 - Labs Labs: 01/09/18 06:20 01/09/18 06:20 - Constitutional Appears: Non-toxic, No Acute Distress, Chronically Ill - Head Exam Head Exam: ATRAUMATIC, NORMOCEPHALIC - Eye Exam Eye Exam: EOMI, PERRL Pupil Exam: NORMAL ACCOMODATION, PERRL - ENT Exam ENT Exam: Mucous Membranes Moist, Normal External Ear Exam, TM's Normal Bilaterally - Neck Exam Neck Exam: Full ROM, Normal Inspection - Respiratory Exam Respiratory Exam: Clear to Ausculation Bilateral, NORMAL BREATHING PATTERN. absent: Rales, Rhonchi, Wheezes - Cardiovascular Exam Cardiovascular Exam: REGULAR RHYTHM, RRR, +S1, +S2 - GI/Abdominal Exam GI & Abdominal Exam: Soft, Normal Bowel Sounds. absent: Distended, Tenderness - Extremities Exam Extremities Exam: Full ROM Additional comments: +2 edema of the left lower leg with diffuse erythema and warmth - Neurological Exam Neurological Exam: Alert, Awake, CN II-XII Intact, Oriented x3 Assessment and Plan - Assessment and Plan (Free Text) Assessment: 72 yo male with left lower leg cellulitis given Vancomycin and Zosyn in ER. Medical history includes hypercholesterolemia, hypertension, PTSD, depression, and likely CAD. Lower extremity ultrasound did not show any obstructions of clots. Patient is a [place] . Continue on Zosyn for now. Supportive care. May need further evaluation for PVD/PAD. When ready for discharge, may consider use of Augmentin 875mg BID for 10 days on discharge. Thank you for allowing me to participate in the care of the patient, we will follow with you.
[2018-01-09] MEDS ORDERED: Amoxicillin-Clav 875-125 mg Tab PO SCH (22:00)
[2018-01-10] MEDS ORDERED: Potassium Chloride 10 mEq ER Tab PO SCH (08:00)
== END 2018-01-09 14:45 | disposition home or self-care (01) | DRG 603 ==
LOC: ED 17:23 → ERH 23:14 → 5RNO 01-07 02:08 → OBSVTOIN 01-07 15:01
PROVIDERS: ADMIT Internal Medicine; ATTEND Internal Medicine
DX: L03.116 Cellulitis of left lower limb (principal); D51.9 Vitamin B12 deficiency anemia, unspecified; D50.9 Iron deficiency anemia, unspecified; E78.00 Pure hypercholesterolemia, unspecified; I10 Essential (primary) hypertension; F43.10 Post-traumatic stress disorder, unspecified

== ENCOUNTER 2018-04-11 10:03 | Inpatient (IN) | payer MEDICARE ==
[2018-04-11] MEDS ORDERED: Sodium Chloride 0.9% 500 ML IV STA (10:51)
--- NOTE | 2018-04-11 11:00 | ED PDOC ---
Arrival/HPI - General Chief Complaint: GI Problem Time Seen by Provider: 04/11/18 10:46 Historian: Patient - History of Present Illness Narrative History of Present Illness (Text): 04/11/18 10:50 pt p/w ~ 2 days onset of severe weakness/fatigue and general unwell feeling; + no appetite, + diffuse abd cramps, + chills, no fever/sweats, + lightheadedness/ dizziness, no LOC, no chest pain/shortness of breath/palpitations, + nausea, no vomiting, no urinary changes, no BM x 3 days; pt denied fall/trauma/sick contact , no travel; pt denied other complaints; pt is here for further eval. pt states he has noted left leg swelling/erythema x 6 weeks, ? worsening over the last 1 week PCP: Dr Rai pt lives in [facility]? Time/Duration: < week (2 days) Symptom Onset: Sudden Symptom Course: Worsening Severity Level: Severe Activities at Onset: Rest Context: Home Past Medical History - Provider Review Nursing Documentation Reviewed: Yes - Travel History Have you recently traveled outside [place] w/in the past 3 mons?: No - Past History Past History: No Previous - Infectious Disease Hx of Infectious Diseases: None - Tetanus Immunization Tetanus Immunization: Unknown - Past Medical History Past Medical History: No Previous - Pulmonary Hx Asthma: Yes - Neurological Hx Neurological Disorder: No - HEENT Hx HEENT Disorder: No - Renal Hx Renal Disorder: No - Hematological/Oncological Hx Blood Disorders: No - Musculoskeletal/Rheumatological Hx Falls: No - Gastrointestinal Hx Gastrointestinal Disorders: No - Psychiatric Hx Post Traumatic Stress Disorder: Yes Hx Substance Use: No - Surgical History Hx Open Heart Surgery: Yes - Anesthesia Hx Anesthesia: No Hx Anesthesia Reactions: No Hx Malignant Hyperthermia: No - Suicidal Assessment Feels Threatened In Home Enviroment: No Family/Social History - Physician Review Nursing Documentation Reviewed: Yes Family/Social History: No Known Family HX Smoking Status: Never Smoked Hx Alcohol Use: Yes Hx Substance Use: No Hx Substance Use Treatment: No Allergies/Home Meds Allergies/Adverse Reactions: Allergies No Known Allergies Allergy (Verified 04/11/18 10:24) Home Medications: Home Meds Medication Instructions Recorded Confirmed Atorvastatin [Lipitor] 40 mg PO DIN 04/11/18 04/11/18 Montelukast [Singulair] 10 mg PO 05/18/18 Potassium Gluconate [Potassium] 10 meq PO DAILY 04/11/18 04/11/18 Review of Systems - Review of Systems Constitutional: Fatigue Eyes: Normal ENT: Normal Respiratory: Normal. absent: SOB, Cough Cardiovascular: Normal. absent: Chest Pain Gastrointestinal: Abdominal Pain, Constipation, Nausea, Appetite Changes. absent: Vomiting Genitourinary Male: Normal Musculoskeletal: Normal Skin: Cellulitis, Other (left leg swelling/redness) Neurological: Dizziness. absent: Headache Endocrine: Normal Hemo/Lymphatic: Normal Psychiatric: Normal Physical Exam - Physical Exam Narrative Physical Exam (Text): 04/11/18 1050 General: alert/awake, GCS = 15, oriented x 3, resting in bed, uncomfortable, cooperative, interactive Head: NC/AT; mild bi-temporal wasting Eye: PERRLA, EOMI, sclera anicteric, no nystagmus, no photophobia; visual field intact b/l, wearing eye glasses Face: WNL ORAL: poor dentitions, no drooling/stridor, no dysphonia, no exudate/lesions; DRY oral mucosa, NECK: intact ROM, no midline tenderness, no nuchal rigidity, no meningeal signs ; no step off, no gross deformities Chest: no focal tenderness, no crepitus, no lesions, no gross deformities Lung: CTA b/l, no w/r/r Card: +S1, +S2, no m/r/r ABD: +BS, soft/nd/nt, well nourished patient; no aranda's sign, no mcburney's point tenderness, no masses/rebound/guarding/rigidity Ext: intact ROM, strength 5-/5 grossly intact in all limbs, neurovasc intact b/l ; + left lower ext skin erythema up to proximal knee (consistent with leg cellulitis); + pitting edema +1/5 up to proximal left knee, no gross tenderness/ stewart's sign noted b/l; no gross deformities noted SKIN: cap refill ~ 1 sec, no ulcerations, no petechiae, no rashes; as decribed above left lower ext leg NEURO: CNII-XII WNL, no facial asymmetries, no slurr speech, oriented x 2 (not to date/time) Psych: normal insight, cooperative, normal conentration Vital Signs Reviewed: Yes Vital Signs Temp Pulse Resp BP Pulse Ox 04/11/18 14:03 98.0 F 100 H 19 108/59 L 98 04/11/18 13:23 98.0 F 100 H 19 98 04/11/18 10:20 99.6 F 102 H 18 110/66 98 Temperature: Afebrile Blood Pressure: Normal Pulse: Tachycardic Respiratory Rate: Normal Appearance: Positive for: Well-Appearing, Uncomfortable Pain Distress: None Mental Status: Positive for: Alert and Oriented X 3 - Systems Exam Head: Present: Atraumatic, Normocephalic Medical Decision Making ED Course and Treatment: 04/11/18 10:50 Impression: general weakness, fatigue, No appetite i have consider all the differential diagnosis regarding pt's chief medical complaints/clinical findings, including but are not limited to: general weakness , fatigue, No appetite A/P: general weakness, fatigue, no appetite - labs - iv - xray - ua - supportive care - observe/reevaluation 04/11/18 12:24 pt is awaiting lab/diagnostic results Code Sepsis is activated paging Dr Rai for admission 04/11/18 12:47 Dr Rai contacted, made aware, agrees with admission; would like to consult Dr Wright (ID) pt is made aware of pt's medical results agrees with admission vital signs unchanged Re-evaluation Time: 12:24 Reassessment Condition: Improving,but remains with symptoms - Critical Care Critical Care Minutes: 45 minutes Critical Care Time: Excluding Proc Time Narrative Critical Care (Text): 04/11/18 17:28 critical care time: 45min, excluding procedure time, excluding time teaching residents/students/mid-level providers; including initial eval/diagnosis, diagnostic interpretation, re-eval, consultations, final disposition - Lab Interpretations Lab Results: 04/11/18 11:30 04/11/18 11:30 Lab Results 04/11/18 12:26: pO2 27 L, VBG pH 7.35, VBG pCO2 54.0, VBG HCO3 29.8 H, VBG Total CO2 31.5 H, VBG O2 Sat (Calc) 52.9, VBG Base Excess 2.9 H, VBG Potassium 4.5, Glucose 125 H, Lactate 1.7, FiO2 21.0, Sodium 136.0, Chloride 103.0, Venous Blood Potassium 4.5 04/11/18 11:30: Sodium 145, Potassium 4.5, Chloride 103, Carbon Dioxide 30, Anion Gap 16, BUN 36 H, Creatinine 1.5, Est GFR ( Amer) 56, Est GFR (Non- Af Amer) 46, Random Glucose 121 H, Calcium 9.1, Total Bilirubin 0.8, AST 59 D, ALT 27, Alkaline Phosphatase 60, Troponin I 0.07, Total Protein 7.1, Albumin 3.8 , Globulin 3.3, Albumin/Globulin Ratio 1.1, Lipase < 10 L 04/11/18 11:30: PT 13.4 H, INR 1.16 H, APTT 29.6 04/11/18 11:30: WBC 21.1 H D, RBC 4.46, Hgb 14.0, Hct 41.5 L, MCV 93.0, MCH 31.4 , MCHC 33.7, RDW 13.8, Plt Count 198, MPV 11.2 H, Gran % 91.3 H, Lymph % (Auto) 2.7 L, Isabela % (Auto) 6.0, Eos % (Auto) 0.0 L, Baso % (Auto) 0.0, Gran # 19.29 H , Lymph # (Auto) 0.6 L, Isabela # (Auto) 1.3 H, Eos # (Auto) 0.0, Baso # (Auto) 0.01, Neutrophils % (Manual) 90 H, Band Neutrophils % 5 H, Lymphocytes % (Manual ) 3 L, Monocytes % (Manual) 2, Platelet Evaluation Normal, Anisocytosis (manual ) Slight I have reviewed the lab results: Yes Interpretation: Abnormal lab values (elevated WBCs) - RAD Interpretation Narrative RAD Interpretations (Text): 04/11/18 11:15 Chest X-ray: Creator : Sheldon Urbina MD COMPARISON: 02/06/2015 FINDINGS: LUNGS: No active pulmonary disease. PLEURA: There is elevation of the left hemidiaphragm. This is a chronic finding. CARDIOVASCULAR: Mild cardiomegaly OSSEOUS STRUCTURES: Sternal wires VISUALIZED UPPER ABDOMEN: Normal. OTHER FINDINGS: None. IMPRESSION: No active disease. 04/11/18 17:30 HISTORY: Leg pain and swelling. Evaluate for DVT PHYSICIAN(S): Genaro Ellis MD. TECHNIQUE: Duplex sonography and color-flow Doppler with graded compression were used to evaluate the deep venous systems of both lower extremities. The exam is somewhat limited by edema. FINDINGS: The visualized deep venous systems of both lower extremities are sonographically normal and compressible. Normal wave forms and augmentation are seen. There is no sonographic evidence for deep venous thrombosis in the visualized segments of both lower extremities. IMPRESSION: No sonographic evidence for deep venous thrombosis in the visualized segments of both lower extremities. Radiology Orders: 04/11/18 10:47 CHEST PORTABLE [RAD] Stat 04/11/18 11:27 DUPLEX LOWER EXTRM VEIN BILAT [US] Stat Abstract Writer: Radiologist - EKG Interpretation EKG Interpretation (Text): 04/11/18 12:28 NSR at 95 bpm, RAD, no ectopy, incomplete RBBB, inverted T in leads R, V1, no st changes, likely Right Ventricular hypertrophy; ABNL EKG; no old ekg to compare with Interpreted by ED Physician: Yes Type: 12 lead EKG Comparison: No previous EKG avail. - Medication Orders Current Medication Orders: Sodium Chloride (Sodium Chloride 0.9%) 1,000 mls @ 100 mls/hr IV .Q10H [facility] Last Admin: 04/11/18 13:51 Dose: 100 mls/hr eMAR Start Stop Document 04/11/18 13:51 [email or web address] (Rec: 04/11/18 13:51 [email or web address] [id number]) Intravenous Solution Start Date 04/11/18 Start Time 13:51 End Date 04/11/18 Discontinued Medications Sodium Chloride (Sodium Chloride 0.9%) 500 mls @ 999 mls/hr IV .Q31M STA Stop: 04/11/18 11:21 Last Admin: 04/11/18 13:50 Dose: Not Given Non-Admin Reason: Patient Refused Piperacillin Sod/Tazobactam Sod (Zosyn 3.375 In Ns 100ml) 100 mls @ 200 mls/hr IVPB STAT STA PRN Reason: Protocol Stop: 04/11/18 11:56 Last Admin: 04/11/18 13:51 Dose: 200 mls/hr eMAR Start Stop Document 04/11/18 13:51 [email or web address] (Rec: 04/11/18 13:51 [email or web address] [id number]) Intravenous Solution Start Date 04/11/18 Start Time 13:51 End Date 04/11/18 Vancomycin HCl (Vancomycin 1gm) 1 gm in 250 mls @ 167 mls/hr IVPB STAT STA Stop: 04/11/18 14:23 Last Admin: 04/11/18 16:12 Dose: 167 mls/hr eMAR Start Stop Document 04/11/18 16:12 [email or web address] (Rec: 04/11/18 16:12 [email or web address] [id number]) Intravenous Solution Start Date 04/11/18 Start Time 16:12 End Date 04/11/18 Tetanus/Reduced Diphtheria/Acell Pertussis (Boostrix Vaccine Inj) 0.5 ml IM .ONCE ONE Stop: 04/11/18 11:28 Last Admin: 04/11/18 13:58 Dose: 0.5 ml Immunization Registry Document 04/11/18 13:58 [email or web address] (Rec: 04/11/18 13:58 [email or web address] [id number]) Immunization Registry Consent Date 01/06/18 Disposition/Present on Arrival - Present on Arrival Any Indicators Present on Arrival: No History of DVT/PE: No History of Uncontrolled Diabetes: No Urinary Catheter: No History of Decub. Ulcer: No History Surgical Site Infection Following: None - Disposition Have Diagnosis and Disposition been Completed?: Yes Diagnosis: Left leg cellulitis, Sepsis, Weakness, Dehydration, Near syncope Disposition: HOSPITALIZED Disposition Time: 12:28 Patient Plan: Admission, Telemetry Patient Problems: Current Active Problems Problem Status Onset Dehydration Acute Left leg cellulitis Acute Near syncope Acute Sepsis Acute Weakness Acute Condition: STABLE
--- NOTE | 2018-04-11 11:17 | RAD ---
HISTORY: weakness COMPARISON: 02/06/2015 FINDINGS: LUNGS: No active pulmonary disease. PLEURA: There is elevation of the left hemidiaphragm. This is a chronic finding. CARDIOVASCULAR: Mild cardiomegaly OSSEOUS STRUCTURES: Sternal wires VISUALIZED UPPER ABDOMEN: Normal. OTHER FINDINGS: None. IMPRESSION: No active disease.
[2018-04-11] MEDS ORDERED: TDAP Vaccine 0.5 mL Syr IM ONE (11:27)
[2018-04-11] MEDS ORDERED: Piperacillin/Tazobact 3.375 gm 100 ML IVPB STA (11:27)
[2018-04-11 11:44] LABS: BASO # 0.01 K/mm3 (0.0-2.0); GRAN # 19.29 (1.4-6.5); GRAN % 91.3 % (50.0-68.0); LYMPH # 0.6 (1.2-3.4); LYMPH % 2.7 % (22.0-35.0); MEAN CORPUSCULAR HEMOGLOBIN 31.4 pg (25.0-35.0); MEAN CORPUSCULAR HGB CONC 33.7 g/dl (31.0-37.0); MEAN PLATELET VOLUME 11.2 fl (7.0-11.0); MONO # 1.3 (0.1-0.6); PLATELET COUNT 198 10^3/uL (120.0-450.0); RBC 4.46 10^6/uL (3.5-6.1); RED CELL DISTRIBUTION WIDTH 13.8 % (11.5-14.5); WHITE BLOOD COUNT 21.1 10^3/ul (4.5-11.0)
[2018-04-11 11:54] LABS: ALB/GLOB RATIO 1.1 (1.1-1.8); ALBUMIN 3.8 g/dL (3.0-4.8); ALT/SGPT 27 U/L (7-56); AST/SGOT 59 U/L (17-59); BLOOD UREA NITROGEN 36 mg/dL (7-21); CALCIUM 9.1 mg/dL (8.4-10.5); GFR AFRICAN-AMERICAN 56; GFR NON-AFRICAN AMERICAN 46
[2018-04-11 11:55] LABS: LIPASE < 10 U/L (23-300)
[2018-04-11 12:06] LABS: TROPONIN I 0.07 ng/mL
[2018-04-11 12:34] LABS: INR 1.16 (0.93-1.08); PARTIAL THROMBOPLASTIN TIME 29.6 Seconds (25.1-36.5); PROTHROMBIN TIME 13.4 SECONDS (9.4-12.5)
[2018-04-11 12:37] LABS: VENOUS BLOOD GAS BASE EXCESS 2.9 mmol/L (0.0-2.0); VENOUS BLOOD GAS PO2 27 mm/Hg (30-55); VENOUS BLOOD PH 7.35 (7.32-7.43)
[2018-04-11 12:46] LABS: ANISOCYTOSIS SLIGHT; BAND 5 % (0-2); LYMPHOCYTE 3 % (22.0-35.0); MONOCYTE 2 % (1.0-6.0); NEUTROPHIL 90 % (50.0-70.0); PLATELET ESTIMATE NORMAL (NORMAL)
[2018-04-11] MEDS ORDERED: Vancomycin 1 g Inj IVPB ONE (12:52)
[2018-04-11] MEDS ORDERED: Vancomycin 1gm in NS 250ml 1 GM/250 ML BAG IVPB STA (12:54)
[2018-04-11] MEDS: Sodium Chloride 0.9% 1,000 ML IV SCH (13:51)
--- NOTE | 2018-04-11 15:55 | US ---
HISTORY: Leg pain and swelling. Evaluate for DVT PHYSICIAN(S): Genaro Ellis MD. TECHNIQUE: Duplex sonography and color-flow Doppler with graded compression were used to evaluate the deep venous systems of both lower extremities. The exam is somewhat limited by edema. FINDINGS: The visualized deep venous systems of both lower extremities are sonographically normal and compressible. Normal wave forms and augmentation are seen. There is no sonographic evidence for deep venous thrombosis in the visualized segments of both lower extremities. IMPRESSION: No sonographic evidence for deep venous thrombosis in the visualized segments of both lower extremities.
--- NOTE | 2018-04-11 16:53 | CARD ---
APPROVED REPORT EKG Measurement Heart [id number] CT [id number] <Conclusion> Normal sinus rhythm Possible Left atrial enlargement Incomplete right bundle branch block Right ventricular hypertrophy Abnormal ECG
--- NOTE | 2018-04-11 18:02 | CP.PCM.CON ---
History of Present Illness - History of Present Illness History of Present Illness: Infectious Disease Consultation: April 11, 2018 73 yo male with complaints of severe weakness and fatigue for the past 2 days. Complaining of swelling and cellulitis to the left lower leg worsening over the past week. Patient has been admitted for similar problems to the left leg over the past year and has had difficuties with the right leg as well. He only gives a history of hypercholesterolemia, Depression, and PTSD. The patient receives his care at the [facility] in [place] and has a 70% compensation level. He is a of the [place] and believes he had exposure to Agent [place]. The patient is noted to have swelling of the left lower leg as well. PMHx: Hypercholesterolemia, Depression, PTSD Likely HTN and CAD given history of Open heart surgery PSHx: Open heart surgery Allergies: NKDA Social Hx: No tobacco or illicit drug use Social EtOH Active Medications Sodium Chloride (Sodium Chloride 0.9%) 1,000 mls @ 100 mls/hr IV .Q10H [facility] Last Admin: 04/11/18 13:51 Dose: 100 mls/hr Family Hx: none given ROS: swelling ot hte left leg with erythema. General weakness. No fevers, chills, nausea, vomiting, diarrhea, headaches, dizziness, chest pain , abdominal pain, melena, hematuria, hematemesis, hematochezia History of Anxiety, Depression Past Patient History - Infectious Disease Hx of Infectious Diseases: None - Tetanus Immunizations Tetanus Immunization: Unknown - Past Social History Smoking Status: Never Smoked - PULMONARY Hx Asthma: Yes - NEUROLOGICAL Hx Neurological Disorder: No - HEENT Hx HEENT Problems: No - RENAL Hx Chronic Kidney Disease: No - HEMATOLOGICAL/ONCOLOGICAL Hx Blood Disorders: No - MUSCULOSKELETAL/RHEUMATOLOGICAL Hx Falls: No - GASTROINTESTINAL Hx Gastrointestinal Disorders: No - PSYCHIATRIC Hx Post Traumatic Stress Disorder: Yes Hx Substance Use: No - SURGICAL HISTORY Hx Open Heart Surgery: Yes - ANESTHESIA Hx Anesthesia: No Hx Anesthesia Reactions: No Hx Malignant Hyperthermia: No Meds Allergies/Adverse Reactions: Allergies Allergy/AdvReac Type Severity Reaction Status Date / Time No Known Allergies Allergy Verified 04/11/18 10:24 - Medications Medications: Current Medications Sodium Chloride (Sodium Chloride 0.9%) 1,000 mls @ 100 mls/hr IV .Q10H [facility] Last Admin: 04/11/18 13:51 Dose: 100 mls/hr Physical Exam - Constitutional Appears: Non-toxic, No Acute Distress, Chronically Ill - Head Exam Head Exam: ATRAUMATIC, NORMOCEPHALIC - Eye Exam Eye Exam: EOMI, PERRL Pupil Exam: NORMAL ACCOMODATION, PERRL - ENT Exam ENT Exam: Mucous Membranes Moist, Normal External Ear Exam, TM's Normal Bilaterally - Neck Exam Neck exam: Positive for: Full Rom, Normal Inspection - Respiratory Exam Respiratory Exam: Clear to Auscultation Bilateral, NORMAL BREATHING PATTERN. absent: Rales, Rhonchi, Wheezes - Cardiovascular Exam Cardiovascular Exam: REGULAR RHYTHM, RRR, +S1, +S2 - GI/Abdominal Exam GI & Abdominal Exam: Normal Bowel Sounds, Soft. absent: Distended, Tenderness - Extremities Exam Extremities exam: Positive for: full ROM Additional comments: left leg edema up to knee with erythema. - Neurological Exam Neurological exam: Alert, CN II-XII Intact, Oriented x3 - Psychiatric Exam Psychiatric exam: Normal Affect, Normal Mood - Skin Skin Exam: Intact, Normal Color Results - Vital Signs Recent Vital Signs: Last Vital Signs Temp 98.0 F 04/11/18 14:03 Pulse 100 H 04/11/18 14:03 Resp 19 04/11/18 14:03 BP 108/59 L 04/11/18 14:03 Pulse Ox 98 04/11/18 14:03 - Labs Result Diagrams: 04/11/18 11:30 04/11/18 11:30 Labs: Laboratory Results - last 24 hr 04/11/18 15:09 Influenza Typ A,B (EIA) Negative for flu a/b Assessment & Plan - Assessment and Plan (Free Text) Assessment: 73 yo male with lower left leg cellulitis and questions of the patient 's living situation. Start on Vancomycin and Cefepime for now. Monitor renal function. The patient with renal insufficiency at this time. Significant leukocytosis noted as well. Robison cultures. Antibiotic to be renally dosed for now. Thank you for allowing me to participate in the care of the patient, we will follow with you.
[2018-04-11 18:24] LABS: VENOUS BLOOD GAS BASE EXCESS 1.5 mmol/L (0.0-2.0); VENOUS BLOOD GAS PO2 51 mm/Hg (30-55); VENOUS BLOOD PH 7.38 (7.32-7.43)
[2018-04-11 21:20] VITALS: BMI 26.4
[2018-04-11] MEDS ORDERED: Pneumococcal 23-Valent Vaccine IM ONE (21:20)
[2018-04-11] MEDS ORDERED: Levalbuterol 0.63 MG/3 ML Inhal Soln UD IH ONE (23:28)
--- NOTE | 2018-04-12 00:34 | CP.PCM.PN ---
Subjective - Date & Time of Evaluation Date of Evaluation: 04/12/18 Time of Evaluation: 00:26 - Subjective Subjective: pt with hx of left lower extremity cellulitis hx of htn cad hyperlipidemia ,pt has intermittent a-fib with rate of between 90 and 120 .pt is sleeping. has temp of 100 .7. Objective - Vital Signs/Intake and Output Vital Signs (last 24 hours): Temp Pulse Resp BP Pulse Ox 98.5 F 90 18 100/64 94 L 04/11/18 23:55 04/11/18 23:55 04/11/18 23:55 04/11/18 23:55 04/11/18 23:55 - Medications Medications: Current Medications Atorvastatin Calcium (Lipitor) 40 mg PO DIN KATRIN Furosemide (Lasix) 40 mg PO DAILY KATRIN Sodium Chloride (Sodium Chloride 0.9%) 1,000 mls @ 100 mls/hr IV .Q10H [facility]AT[facility] Last Admin: 04/11/18 13:51 Dose: 100 mls/hr Cefepime HCl (Maxipime 1gm) 1 gm in 100 mls @ 100 mls/hr IVPB Q24H KATRIN PRN Reason: Protocol Vancomycin HCl (Vancomycin 1gm) 1 gm in 250 mls @ 167 mls/hr IVPB DAILY KATRIN PRN Reason: Protocol Montelukast Sodium (Singulair) 10 mg PO DAILY KATRIN - Labs Labs: PT 13.4 SECONDS (9.4-12.5) H 04/11/18 11:30 INR 1.16 (0.93-1.08) H 04/11/18 11:30 APTT 29.6 Seconds (25.1-36.5) 04/11/18 11:30 - Constitutional Appears: No Acute Distress - Head Exam Head Exam: NORMOCEPHALIC - ENT Exam ENT Exam: Mucous Membranes Moist - Neck Exam Neck Exam: Normal Inspection - Respiratory Exam Respiratory Exam: Clear to Ausculation Bilateral - Cardiovascular Exam Cardiovascular Exam: RRR, +S1, +S2 - GI/Abdominal Exam GI & Abdominal Exam: Soft - Rectal Exam Rectal Exam: Deferred - Extremities Exam Additional comments: redness and warm left lower extremity. - Psychiatric Exam Psychiatric exam: Normal Mood - Skin Additional comments: as mentioned above. Assessment and Plan - Assessment and Plan (Free Text) Assessment: intermittent a-fib /sepsis.cellulitis left lower extremity. hx of cad /hyperlipidemia. Plan: pt is on vanco and cefipime. tylenol prn. ekg stat bmp troponine.
[2018-04-12 00:46] LABS: BLOOD UREA NITROGEN 35 mg/dL (7-21); CALCIUM 8.4 mg/dL (8.4-10.5); GFR AFRICAN-AMERICAN > 60; GFR NON-AFRICAN AMERICAN 50
[2018-04-12] MEDS: Cefepime 1gm in NS 100ml 1 GM/100 ML BAG IVPB SCH ×2 (00:49→17:28)
[2018-04-12 00:57] LABS: TROPONIN I 0.05 ng/mL
[2018-04-12 02:09] LABS: IRON 10 ug/dL (45-180)
[2018-04-12 02:10] LABS: TOTAL IRON BINDING CAPACITY 237 ug/dL (261-462)
[2018-04-12 02:19] LABS: % IRON SATURATION 0 % (20-55)
--- NOTE | 2018-04-12 05:38 | HP ---
The patient is 73-year-old male. CHIEF COMPLAINT: Swelling of the legs. HISTORY OF PRESENT ILLNESS: Mr. Scott Tadeo is a 73-year-old male, my private patient, came to [facility] with severe weakness, fatigue and general unwell feeling. No appetite. Having diffused cramps. Feeling chills. No fever. No sweats. Positive lightheadedness, dizziness. No loss of consciousness. No chest pain. No shortness of breath. No nausea, vomiting or diarrhea. No bowel movements for three days. Patient denies any fall, trauma or sick contact. No travel. Patient denies other complaints. Patient is there for further evaluation because of the swelling of the legs, this happened second time, same thing happened a couple of months ago, patient was admitted, gave antibiotics, got better and discharged home, left is more than the right, it is about 6 weeks, worsening over the last week. PAST MEDICAL HISTORY: Asthma, posttraumatic stress disorder, open heart surgery, history of cellulitis of the leg in the past. FAMILY HISTORY: Father and mother, noncontributory. HABITS: Never smoked. No drugs. Alcohol, yes. ALLERGIES: PATIENT IS NOT ALLERGIC WITH ANY MEDICATION. HOME MEDICATIONS: Atorvastatin, Singulair and potassium. REVIEW OF SYSTEMS: Patient is seen and examined on the bedside, looking comfortable. No nausea, vomiting, or diarrhea. No hematuria or hematochezia. No headache. No dizziness. No chest pain. No palpitation. Has redness of the leg. PHYSICAL EXAMINATION: VITAL SIGNS: Temperature 98, pulse 100, respiratory rate 19, blood pressure 108/59, pulse oximetry 98. HEENT: Head, normocephalic and atraumatic. Eyes, PERRLA. Extraocular muscles are intact. Conjunctivae are clear. Nose patent. Mucous membranes moist. NECK: Supple. No carotid bruits, JVD or thyromegaly. CHEST: Bilaterally symmetrical. HEART: S1 and S2 positive. LUNGS: Clear to auscultation. ABDOMEN: Soft. Bowel sounds present. No organomegaly. EXTREMITIES: Left lower extremity, skin is erythematous , consistent with leg cellulitis, positive edema. No gross tenderness. NEUROLOGIC: Awake, alert. Moving all four extremities. No focal deficit. LABORATORY DATA: White blood cells 21.1, hemoglobin 14, hematocrit 41.5, platelets 198. Sodium 145, potassium 4.5, BUN 36, creatinine 1.5 and glucose 121. ASSESSMENT AND PLAN: Mr. Scott Tadeo is a 73-year-old male with leukocytosis, increased blood urea nitrogen, hyperglycemia. Doppler of the legs done shows no sonographic evidence of deep vein thrombosis in the visualized segments of both lower extremities. Chest x-ray done, is negative. EKG reviewed by me. Looks like patient had dehydration, left leg cellulitis, near syncope, sepsis, weakness and history of asthma. We admitted the patient, started on intravenous antibiotics. Gastrointestinal and deep vein thrombosis prophylaxis. Repeat labs. We will follow up. Mari Rai MD MTDD
[2018-04-12] MEDS: Sodium Chloride 0.9% 1,000 ML IV SCH (09:18)
[2018-04-12] MEDS: Vancomycin 1gm in NS 250ml 1 GM/250 ML BAG IVPB SCH (09:19)
[2018-04-12 12:32] LABS: FOLATE 14.3 ng/mL
--- NOTE | 2018-04-12 15:21 | CARD ---
APPROVED REPORT EKG Measurement Heart [id number] <Conclusion> Atrial fibrillation with rapid ventricular response Right bundle branch block Abnormal ECG
[2018-04-12] MEDS: Clotrimazole/Betamethasone Cream(15 gm) TOP SCH (17:26)
--- NOTE | 2018-04-12 17:50 | CP.PCM.PN ---
Subjective - Date & Time of Evaluation Date of Evaluation: 04/12/18 Time of Evaluation: 16:00 - Subjective Subjective: Infectious Disease Follow Up: April 12, 2018 73 yo male with complaints of severe weakness and fatigue for the past 2 days. Complaining of swelling and cellulitis to the left lower leg worsening over the past week. Patient has been admitted for similar problems to the left leg over the past year and has had difficuties with the right leg as well. He only gives a history of hypercholesterolemia, Depression, and PTSD. The patient receives his care at the [facility] in [place] and has a 70% compensation level. He is a of the [place] and believes he had exposure to Agent [place]. The patient is noted to have swelling of the left lower leg as well. Overnight, the patient had fevers up to 100.7 F and hypotension episodes of 90/ 56 with Atrial fibrillation and tachycardia. The left leg cellulitis did improve however. Objective - Vital Signs/Intake and Output Vital Signs (last 24 hours): Temp Pulse Resp BP Pulse Ox 98.6 F 80 20 98/62 L 98 04/12/18 16:00 04/12/18 16:00 04/12/18 16:00 04/12/18 16:00 04/12/18 16:00 Intake and Output: 04/12/18 04/12/18 06:59 18:59 Intake Total 1000 480 Output Total 950 Balance 1000 -470 - Medications Medications: Current Medications Acetaminophen (Tylenol 325mg Tab) 650 mg PO Q4H PRN PRN Reason: Fever >100.4 F Last Admin: 04/12/18 00:49 Dose: 650 mg Acetaminophen (Tylenol 325mg Tab) 650 mg PO Q4H PRN PRN Reason: Pain, Mild (1-3) Atorvastatin Calcium (Lipitor) 40 mg PO DIN [facility] Last Admin: 04/12/18 17:26 Dose: 40 mg Betamethasone/Clotrimazole (Lotrisone) 0 gm TOP DAILY [facility] Last Admin: 04/12/18 17:26 Dose: 1 appful Furosemide (Lasix) 40 mg PO DAILY [facility] Last Admin: 04/12/18 09:27 Dose: 40 mg Cefepime HCl (Maxipime 1gm) 1 gm in 100 mls @ 100 mls/hr IVPB Q24H KATRIN PRN Reason: Protocol Last Admin: 04/12/18 17:28 Dose: 100 mls/hr Vancomycin HCl (Vancomycin 1gm) 1 gm in 250 mls @ 167 mls/hr IVPB DAILY KATRIN PRN Reason: Protocol Last Admin: 04/12/18 09:19 Dose: 167 mls/hr Montelukast Sodium (Singulair) 10 mg PO DAILY [facility] Last Admin: 04/12/18 09:27 Dose: 10 mg - Labs Labs: 04/12/18 00:20 PT 13.4 SECONDS (9.4-12.5) H 04/11/18 11:30 INR 1.16 (0.93-1.08) H 04/11/18 11:30 APTT 29.6 Seconds (25.1-36.5) 04/11/18 11:30 - Constitutional Appears: Non-toxic, No Acute Distress, Chronically Ill - Head Exam Head Exam: ATRAUMATIC, NORMOCEPHALIC - Eye Exam Eye Exam: EOMI, PERRL Pupil Exam: NORMAL ACCOMODATION, PERRL - ENT Exam ENT Exam: Mucous Membranes Moist, Normal External Ear Exam, TM's Normal Bilaterally - Neck Exam Neck Exam: Full ROM, Normal Inspection - Respiratory Exam Respiratory Exam: Clear to Ausculation Bilateral, NORMAL BREATHING PATTERN. absent: Rales, Rhonchi, Wheezes - Cardiovascular Exam Cardiovascular Exam: REGULAR RHYTHM, RRR, +S1, +S2 - GI/Abdominal Exam GI & Abdominal Exam: Soft, Normal Bowel Sounds. absent: Distended, Tenderness - Extremities Exam Extremities Exam: Full ROM Additional comments: left leg edema up to knee with erythema. Improved from yesterday. - Neurological Exam Neurological Exam: Alert, Awake, CN II-XII Intact, Oriented x3 - Psychiatric Exam Psychiatric exam: Normal Affect, Normal Mood - Skin Skin Exam: Intact, Normal Color Assessment and Plan - Assessment and Plan (Free Text) Assessment: 73 yo male with lower left leg cellulitis and questions of the patient 's living situation. Start on Vancomycin and Cefepime for now. Monitor renal function. The patient with renal insufficiency at this time. Significant leukocytosis noted as well starting at 21.1. Robison cultures. Antibiotic to be renally dosed for now. Renal function was improving however. Cultures are still pending. Blood cultures are unlikely to grow an organism. Multiple cardiac issues. The patient with hypotension and atrial fibrillation. Low grade fevers overnight but afebrile so far today. The patient's living situation is supposedly improving on April 25. Thank you for allowing me to participate in the care of the patient, we will follow with you.
--- NOTE | 2018-04-12 19:50 | CON ---
HISTORY: A 73-year-old male seen at bedside for consultation, evaluation, and management of left lower extremity pain and swelling over the last week with increasing severity over the last few days. The patient states he has a history of cellulitis in both of his legs. PAST MEDICAL HISTORY: The patient's medical history is significant for depression, hypercholesterolemia, PSD, and essential hypertension. PAST SURGICAL HISTORY: Includes open heart surgery. ALLERGIES: THE PATIENT HAS NO KNOWN DRUG ALLERGIES. SOCIAL HISTORY: The patient denies illicit drug use. Does not smoke or use tobacco products, and states that he drinks alcohol socially. HOME MEDICATIONS: Noted in MAR. FAMILY HISTORY: Noncontributory. PHYSICAL EXAMINATION: VITAL SIGNS: Reveal temperature of 98.1, pulse rate of 77, blood pressure of 90/56, respiratory rate of 18. LABORATORY FINDINGS: Reveal a white count of 21.1, taken yesterday; hemoglobin of 14; hematocrit of 41.5; platelet count of 198. There is no microbiology report noted. Lower extremity venous duplex reveals no sonographic evidence for deep vein thrombosis bilaterally. OBJECTIVE: Weakly palpable dorsalis pedis pulse and nonpalpable posterior tibial pulse noted bilaterally. Absent pedal hair growth noted bilaterally. The patient has decreased protective sensation noted using 5.07 monofilament wire testing bilaterally. Capillary filling time is slightly delayed. There are no interdigital macerations noted. The left lower extremity presents with edema and erythema. There is noted to be healing superficial wound that presents with scabbing on the left knee as well as on the anterior proximal left lower leg. There is no drainage noted. There is no purulence. There is no malodor. There are no signs of abscess formation. ASSESSMENT: A 73-year-old male with left lower leg cellulitis. PLAN: The patient's left leg was cleansed with normal sterile saline and examined for any superficial ulcerations or abscess formation. There was found to be none. The patient states that the redness and swelling have decreased significantly within the last [address] Wright's note was read and appreciated. Dr. Rai's note was read and appreciated. We will continue with vancomycin and cefepime. We will order Lotrisone cream to be applied to his left lower leg once daily. The patient will be seen and followed while in-house. Abebe Gr DPM
[2018-04-12] MEDS ORDERED: Levalbuterol 0.63 MG/3 ML Inhal Soln UD IH PRN (21:38)
--- NOTE | 2018-04-13 01:37 | PN ---
DATE: 04/12/2018 SUBJECTIVE: Patient is seen and examined on the bedside, looking comfortable. No nausea, vomiting, or diarrhea. No hematuria or hematochezia. No headache. No dizziness. No chest pain. No palpitation. Still has swollen red warm legs and has a history of fever of 100.7. PHYSICAL EXAMINATION: VITAL SIGNS: Temperature 98.6, T-max 100.7, pulse 90, blood pressure 100/54, respiratory rate 18. HEENT: Head: Normocephalic, atraumatic. Eyes: PERRLA. Extraocular muscles are intact. Conjunctivae are clear. Nose patent. Mucous membranes moist. NECK: Supple. No carotid bruits, JVD, or thyromegaly. CHEST: Bilaterally symmetrical. HEART: S1 and S2 positive. LUNGS: Clear to auscultation. ABDOMEN: Soft. Bowel sounds present. No organomegaly. EXTREMITIES: Lower extremity is red and warm. NEUROLOGIC: Patient is awake and alert. MEDICATIONS: Aspirin, Lasix, Lipitor, Lotrisone, Maxipime, Singulair, Tylenol, acetaminophen, vancomycin. LABORATORY DATA: White blood cells 21.1, hemoglobin 14, hematocrit 41.1, platelets 198. Sodium 142, potassium 3.8, BUN 35, creatinine 1.3, glucose 104. ASSESSMENT AND PLAN: Mr. Scott Tadeo is a 73-year-old male with leukocytosis, increased blood urea nitrogen, hypocalcemia, iron deficiency, has influenza type A and B negative. Seen by Dr. Seven Wright, Infectious Disease, for cellulitis of the extremities. Patient has atrial fibrillation and tachycardia. Cardiology consult called for that. Getting vancomycin and cefepime. We will do renal function. Has leukocytosis, want to repeat labs. Antibiotics adjusted now. Culture is still pending. Multiple cardiac issues. Title Officer is on the case. Low-grade fever overnight, but afebrile so far today. Gastrointestinal and deep venous thrombosis prophylaxis. Repeat labs. We will follow up. Mari Rai MD [facility]
--- NOTE | 2018-04-13 04:31 | CON ---
DATE: 04/12/2018 REFERRING PHYSICIAN: Dr. Rai. REASON FOR CONSULTATION: Admitted with left leg cellulitis, may have sleep apnea syndrome, history of chronic lung disease. HISTORY OF PRESENT ILLNESS: This is a 73-year-old gentleman with past medical history significant for post-traumatic stress disorder, coronary artery disease, history of open heart surgery, history of recurrent cellulitis of left leg, chronic lung disease, comes in with left leg swelling, edema, tenderness, started on antibiotics. Admit to have snoring, daytime sleepy and tired. No chest pain. No nausea, no vomiting. No dysuria. PAST MEDICAL HISTORY: As per history of present illness. ALLERGIES: None known. SOCIAL HISTORY: Nonsmoker, nondrinker. FAMILY HISTORY: No significant cardiac pulmonary disease reported. MEDICATIONS: He is on aspirin 81 mg daily, Lasix 40 mg daily Lipitor 40 mg daily, Lotrisone cream to affected area, cefepime 1 g IV every 24 hours, Singulair 10 mg daily, Tylenol p.r.n., vancomycin 1 g IV daily, Tylenol p.r.n. basis. REVIEW OF SYSTEM: No headache, no rhinitis. Admit to have snoring, daytime sleepy and tired. Denied any significant cough and shortness breath. No chest pain. No dysuria. Has left leg swollen and tender. PHYSICAL EXAMINATION: GENERAL: Lying in the bed, no acute distress. VITAL SIGNS: Temperature is 98, heart rate is 90, respiratory is 20, blood pressure 98/62, pulse oximetry 98% room air, T max is 100.7. HEENT: Moist mucous membrane. Crowded a[place]way, Mallampati score is 4. NECK: Supple. No JVD. LUNGS: Has a scattered rhonchi. HEART: S1, S2. ABDOMEN: Soft, nontender, no organomegaly. EXTREMITIES: Left leg has erythema, edema. Tender to touch NEUROLOGIC: Awake, alert, follows simple commands. LABORATORY DATA: Shows hemoglobin 14, hematocrit 41.5, WBC 21,000, platelet is 198. INR 1.16. PTT is 29. VBG show pH 7.38, pCO2 of 46, O2 of 51. Sodium 142, potassium 3.8, chloride 105, bicarbonate is 28, BUN 35, creatinine 1.4, glucose 104, calcium is 8.4. Iron is 10. AST is 59, ALT 27, troponin is 0.05, triglycerides 122. Cholesterol is 119. B12 is 215. Folate is 14. Microbiology, blood culture has been negative. Had a chest x-ray done in ER on admission shows no infiltrate or effusion. Venous Doppler of lower extremity negative for DVT. IMPRESSION AND PLAN: Recurrent cellulitis of lower extremity, history of fall in the past with some skin abrasion, chronic obstructive lung disease, may have sleep apnea syndrome, history of depression and posttraumatic stress disorder. We will add inhaled bronchodilator as needed basis. Keep head at 45 degrees. Avoid sedation. Continue antibiotics. Gastric prophylaxis, deep venous thrombosis prophylaxis. We will recommend attended sleep study upon discharge as outpatient and pulmonary function tests as outpatient. Thank you and we will follow with you. Fermín Olguin MD
[2018-04-13 06:51] LABS: BLOOD UREA NITROGEN 32 mg/dL (7-21); CALCIUM 8.1 mg/dL (8.4-10.5); GFR AFRICAN-AMERICAN > 60; GFR NON-AFRICAN AMERICAN > 60
[2018-04-13 06:52] LABS: HEMOGLOBIN 13.9 g/dL (14.0-18.0); MEAN CELL VOLUME 94.7 fl (80.0-105.0); MEAN CORPUSCULAR HEMOGLOBIN 30.9 pg (25.0-35.0); MEAN CORPUSCULAR HGB CONC 32.6 g/dl (31.0-37.0); MEAN PLATELET VOLUME 11.5 fl (7.0-11.0); RBC 4.5 10^6/uL (3.5-6.1); RED CELL DISTRIBUTION WIDTH 14.1 % (11.5-14.5); WHITE BLOOD COUNT 9.9 10^3/ul (4.5-11.0)
[2018-04-13] MEDS: Vancomycin 1gm in NS 250ml 1 GM/250 ML BAG IVPB SCH (09:09)
[2018-04-13] MEDS: Enoxaparin 100 mg Syringe SC SCH ×2 (09:09→22:19)
[2018-04-13] MEDS: Clotrimazole/Betamethasone Cream(15 gm) TOP SCH (09:11)
[2018-04-13] MEDS ORDERED: Magnesium Citrate Oral SOL (300 ml) PO ONE (11:47)
--- NOTE | 2018-04-13 12:05 | CP.PCM.PN ---
Subjective - Date & Time of Evaluation Date of Evaluation: 04/13/18 Time of Evaluation: 12:02 - Subjective Subjective: Podiatry Progress note for Dr. Dobbs 73 year old male was seen resting comfortably at bedside regarding left lower extremity swelling and pain. He states that the redness has gone down since yesterday. Admits that the nurse applied lotrisone to his leg this morning. Currently denies any n/v/f/c/sob/cp. Objective - Vital Signs/Intake and Output Vital Signs (last 24 hours): Temp Pulse Resp BP Pulse Ox 97.6 F 84 20 100/65 97 04/13/18 10:00 04/13/18 10:00 04/13/18 10:00 04/13/18 10:00 04/13/18 10:00 Intake and Output: 04/13/18 04/13/18 06:59 18:59 Intake Total 720 Output Total 1000 Balance -280 - Medications Medications: Current Medications Acetaminophen (Tylenol 325mg Tab) 650 mg PO Q4H PRN PRN Reason: Fever >100.4 F Last Admin: 04/12/18 00:49 Dose: 650 mg Acetaminophen (Tylenol 325mg Tab) 650 mg PO Q4H PRN PRN Reason: Pain, Mild (1-3) Aspirin (Aspirin Chewable) 81 mg PO DAILY [facility] Last Admin: 04/13/18 09:09 Dose: 81 mg Atorvastatin Calcium (Lipitor) 40 mg PO DIN [facility] Last Admin: 04/12/18 17:26 Dose: 40 mg Betamethasone/Clotrimazole (Lotrisone) 0 gm TOP DAILY [facility] Last Admin: 04/13/18 09:11 Dose: 1 appful Enoxaparin Sodium (Lovenox) 100 mg SC Q12H KATRIN PRN Reason: Protocol Last Admin: 04/13/18 09:09 Dose: 100 mg Furosemide (Lasix) 40 mg PO DAILY [facility] Last Admin: 04/13/18 09:09 Dose: 40 mg Cefepime HCl (Maxipime 1gm) 1 gm in 100 mls @ 100 mls/hr IVPB Q24H KATRIN PRN Reason: Protocol Last Admin: 04/12/18 17:28 Dose: 100 mls/hr Vancomycin HCl (Vancomycin 1gm) 1 gm in 250 mls @ 167 mls/hr IVPB DAILY KATRIN PRN Reason: Protocol Last Admin: 04/13/18 09:09 Dose: 167 mls/hr Levalbuterol HCl (Xopenex) 0.63 mg IH TIDRESP PRN PRN Reason: Shortness of Breath Montelukast Sodium (Singulair) 10 mg PO DAILY [facility] Last Admin: 04/13/18 09:10 Dose: 10 mg Polyethylene Glycol (Miralax) 17 gm PO DAILY KATRIN - Labs Labs: 04/13/18 05:30 04/13/18 05:30 PT 13.4 SECONDS (9.4-12.5) H 04/11/18 11:30 INR 1.16 (0.93-1.08) H 04/11/18 11:30 APTT 29.6 Seconds (25.1-36.5) 04/11/18 11:30 - Constitutional Appears: Well, Non-toxic, No Acute Distress - Extremities Exam Additional comments: Left lower extremity focused exam: Vasc:DP pulses palpable 1/4, PT pulse non-palpable. No pedal hair growth noted. Non-pitting edema noted to LLE. CFT> 3 seconds to all digits Neuro: Gross sensation diminished Derm:Erythema noted from the ankle to the tibial tuberosity- resolving. scab noted to left knee, no drainage, no malodor noted Ortho:No tenderness on palpation to left leg - Neurological Exam Neurological Exam: Alert, Awake, Oriented x3 - Psychiatric Exam Psychiatric exam: Normal Affect, Normal Mood Assessment and Plan - Assessment and Plan (Free Text) Assessment: 73 year old male with left leg cellulitis Plan: patient examined and evaluated discussed in detail with attending, Dr. Dobbs labs, chart, vitals reviewed; afebrile, WBC 9.9 cont to apply lotirsone to LLE cont abx per ID podiatry will cont to follow patient while in house
[2018-04-13] MEDS: POLYETHYLENE GLYCOL 3350 17 GM/Dose PACKET PO SCH (12:12)
[2018-04-13] MEDS: Cefepime 1gm in NS 100ml 1 GM/100 ML BAG IVPB SCH (17:15)
--- NOTE | 2018-04-13 17:56 | CP.PCM.PN ---
Subjective - Date & Time of Evaluation Date of Evaluation: 04/13/18 Time of Evaluation: 16:00 - Subjective Subjective: Infectious Disease Follow Up: April 13, 2018 73 yo male with complaints of severe weakness and fatigue for the past 2 days. Complaining of swelling and cellulitis to the left lower leg worsening over the past week. Patient has been admitted for similar problems to the left leg over the past year and has had difficuties with the right leg as well. He only gives a history of hypercholesterolemia, Depression, and PTSD. The patient receives his care at the [facility] in [place] and has a 70% compensation level. He is a of the [place] and believes he had exposure to Agent [place]. The patient is noted to have swelling of the left lower leg as well. Overnight, the patient has been afebrile and no further hypotension episodes today. Atrial fibrillation and tachycardia. The left leg cellulitis improving. Objective - Vital Signs/Intake and Output Vital Signs (last 24 hours): Temp Pulse Resp BP Pulse Ox 98.6 F 94 H 20 111/80 94 L 04/13/18 16:02 04/13/18 16:02 04/13/18 16:02 04/13/18 16:02 04/13/18 16:02 Intake and Output: 04/13/18 04/13/18 06:59 18:59 Intake Total 720 840 Output Total 1000 Balance -280 840 - Medications Medications: Current Medications Acetaminophen (Tylenol 325mg Tab) 650 mg PO Q4H PRN PRN Reason: Fever >100.4 F Last Admin: 04/12/18 00:49 Dose: 650 mg Acetaminophen (Tylenol 325mg Tab) 650 mg PO Q4H PRN PRN Reason: Pain, Mild (1-3) Aspirin (Aspirin Chewable) 81 mg PO DAILY [facility] Last Admin: 04/13/18 09:09 Dose: 81 mg Atorvastatin Calcium (Lipitor) 40 mg PO DIN [facility] Last Admin: 04/13/18 17:07 Dose: 40 mg Betamethasone/Clotrimazole (Lotrisone) 0 gm TOP DAILY [facility] Last Admin: 04/13/18 09:11 Dose: 1 appful Enoxaparin Sodium (Lovenox) 100 mg SC Q12H KATRIN PRN Reason: Protocol Last Admin: 04/13/18 09:09 Dose: 100 mg Furosemide (Lasix) 40 mg PO DAILY [facility] Last Admin: 04/13/18 09:09 Dose: 40 mg Cefepime HCl (Maxipime 1gm) 1 gm in 100 mls @ 100 mls/hr IVPB Q24H KATRIN PRN Reason: Protocol Last Admin: 04/13/18 17:15 Dose: 100 mls/hr Vancomycin HCl (Vancomycin 1gm) 1 gm in 250 mls @ 167 mls/hr IVPB DAILY KATRNI PRN Reason: Protocol Last Admin: 04/13/18 09:09 Dose: 167 mls/hr Levalbuterol HCl (Xopenex) 0.63 mg IH TIDRESP PRN PRN Reason: Shortness of Breath Montelukast Sodium (Singulair) 10 mg PO DAILY [facility] Last Admin: 04/13/18 09:10 Dose: 10 mg Polyethylene Glycol (Miralax) 17 gm PO DAILY [facility] Last Admin: 04/13/18 12:12 Dose: 17 gm - Labs Labs: 04/13/18 05:30 04/13/18 05:30 PT 13.4 SECONDS (9.4-12.5) H 04/11/18 11:30 INR 1.16 (0.93-1.08) H 04/11/18 11:30 APTT 29.6 Seconds (25.1-36.5) 04/11/18 11:30 - Constitutional Appears: Non-toxic, No Acute Distress, Chronically Ill - Head Exam Head Exam: ATRAUMATIC, NORMOCEPHALIC - Eye Exam Eye Exam: EOMI, PERRL Pupil Exam: NORMAL ACCOMODATION, PERRL - ENT Exam ENT Exam: Mucous Membranes Moist, Normal External Ear Exam, TM's Normal Bilaterally - Neck Exam Neck Exam: Full ROM, Normal Inspection - Respiratory Exam Respiratory Exam: Clear to Ausculation Bilateral, NORMAL BREATHING PATTERN. absent: Rales, Rhonchi, Wheezes - Cardiovascular Exam Cardiovascular Exam: Tachycardia, Irregular Rhythm, +S1, +S2 - GI/Abdominal Exam GI & Abdominal Exam: Soft, Normal Bowel Sounds. absent: Distended, Tenderness - Extremities Exam Extremities Exam: Full ROM Additional comments: left leg edema up to tibial tuberosity with erythema. Improving. - Neurological Exam Neurological Exam: Alert, Awake, CN II-XII Intact, Oriented x3 - Psychiatric Exam Psychiatric exam: Normal Affect, Normal Mood - Skin Skin Exam: Intact, Normal Color Assessment and Plan - Assessment and Plan (Free Text) Assessment: 73 yo male with lower left leg cellulitis and questions of the patient 's living situation. Start on Vancomycin and Cefepime for now. Monitor renal function. The patient with renal insufficiency at this time. Significant leukocytosis noted as well starting at 21.1. Robison cultures. Antibiotic to be renally dosed for now. Renal function was improving however. Cultures are still pending. Blood cultures are unlikely to grow an organism. Multiple cardiac issues. The patient with hypotension and atrial fibrillation. Low grade fevers overnight but afebrile so far today. Leukocytosis has improved to 9.9 today. The patient's living situation is supposedly improving on April 25. Thank you for allowing me to participate in the care of the patient, we will follow with you.
--- NOTE | 2018-04-13 19:04 | PN ---
DATE: 04/13/2018 PULMONARY PROGRESS NOTE REFERRING PHYSICIAN: Mari Rai MD. SUBJECTIVE: He is out of bed to chair, feels better, still has diffused erythema in the left leg and tenderness, but improved. No nausea, no vomiting, no diarrhea. PHYSICAL EXAMINATION: GENERAL: In no acute distress. VITAL SIGNS: Temperature is 98, heart rate is 84, respiratory rate is 20, blood pressure 100/65, pulse ox 97% on room air. HEENT: Moist mucous membranes. Crowded airway. NECK: Supple. No JVD. LUNGS: Have a fair airflow with a few rhonchi. HEART: S1 and S2. ABDOMEN: Soft and nontender. No organomegaly. EXTREMITIES: He does have left leg edema, erythema, and swelling. NEUROLOGIC: Awake and alert. Follows simple commands. MEDICATIONS: He is on aspirin 81 mg daily, Lasix 40 mg daily, Lipitor 40 mg daily, Lotrisone to affected area, cefepime 1 g IV every 24 hours, MiraLax 17 g daily, Singulair 10 mg daily, Tylenol p.r.n. basis, vancomycin 1 g IV daily, and Xopenex 0.63 three times a day. LABORATORY DATA: Shows hemoglobin 13.9, hematocrit 42.6, WBC 9.9, platelet count is 185. Sodium 144, potassium 4, chloride 107, bicarbonate 28, BUN 32, creatinine 1.1, glucose 81, calcium is 8.1. TSH 3.26. Microbiology, blood culture has been negative. IMPRESSION AND PLAN: Recurrent cellulitis of the lower extremity, status post fall and skin abrasion, chronic obstructive lung disease, sleep apnea syndrome, history of depression, post-traumatic stress disorder, also has a constipation. Spoke to the nursing staff. We will give him MiraLax daily basis. May give one bottle of magnesium citrate today. Gastric prophylaxis, deep venous thrombosis prophylaxis. Continue antibiotics. Fall precaution. Needs social service's help. May benefit from TICU type services. Thank you and we will follow with you. Fermín Olguin MD
--- NOTE | 2018-04-14 05:09 | PN ---
DATE: 04/13/2018 SUBJECTIVE: Patient was seen and examined at the bedside on 04/13/2018, looking comfortable. No nausea, vomiting, or diarrhea. No hematuria or hematochezia. No swelling of the legs. No chest pain, no palpitation. No headache, no dizziness. PHYSICAL EXAMINATION: VITAL SIGNS: Temperature 98, heart rate 84, respiratory rate 20, blood pressure 100/65, pulse oximetry 97% on room air. HEENT: Head: Normocephalic, atraumatic. Eyes: PERRLA. Extraocular muscles are intact. Conjunctivae are clear. Nose: Patent. NECK: Supple. No carotid bruit, JVD, or thyromegaly. CHEST: Bilaterally symmetrical. HEART: S1 and S2 positive. LUNGS: Have fair airflow with rhonchi. HEART: S1 and S2 positive. ABDOMEN: Soft. No organomegaly. EXTREMITIES: Patient had left leg edema, erythema, swelling, and redness. NEUROLOGICAL: Patient is awake, alert. Follows simple commands. MEDICATIONS: Aspirin, Lasix, Lipitor, Lotrisone, cefepime, MiraLax, Singulair, vancomycin, and Xopenex. LABORATORY DATA: Hemoglobin 13.9, hematocrit 42.2, white blood cells 9.9, platelet 185. Sodium 144, potassium 4.3, BUN 32, creatinine 1.1. TSH 3.26. Microbiology shows cultures are negative. ASSESSMENT AND PLAN: Mr. Scott Tadeo is a 73-year-old male with recurrent cellulitis of the lower extremities, status post fall, has skin abrasions especially on the left leg, ataxia. Needs good physical and occupational therapy. Asking me to write prescription for cane. Chronic obstructive pulmonary disease, sleep apnea syndrome, history of depression, posttraumatic stress disorder, constipation. Length of time discussion done with the patient and patient's nursing staff. Patient has a history of constipation and MiraLax is given by Dr. Olguin. Getting antibiotics as per Infectious Disease. Gastrointestinal and deep vein thrombosis prophylaxis. Continue antibiotics. Fall precautions. Need social science teacher to help for patient is living in the retirement; may be patient needs good hygiene. May be can benefit from TICU-type services. We will try to avail that. Repeat labs. We will follow up. Mari Rai MD [facility] # [id number]
[2018-04-14] MEDS: Vancomycin 1gm in NS 250ml 1 GM/250 ML BAG IVPB SCH (09:31)
[2018-04-14] MEDS: Enoxaparin 100 mg Syringe SC SCH (09:31)
[2018-04-14] MEDS: POLYETHYLENE GLYCOL 3350 17 GM/Dose PACKET PO SCH (09:31)
[2018-04-14] MEDS: Clotrimazole/Betamethasone Cream(15 gm) TOP SCH (10:50)
--- NOTE | 2018-04-14 14:29 | CP.PCM.PN ---
Subjective - Date & Time of Evaluation Date of Evaluation: 04/14/18 Time of Evaluation: 13:00 - Subjective Subjective: Podiatry Progress note for Dr. Dobbs 73 year old male was seen and evaluated for left lower extremity cellulitis. Patient is seen resting comfortably in bed, in NAD. Patient reports that he feels better. Reports he was able to walk around today. Currently denies any n/v /f/c/sob/cp.Denies pain to the lower extremity. No new pedal complaints Objective - Vital Signs/Intake and Output Vital Signs (last 24 hours): Temp Pulse Resp BP Pulse Ox 98.1 F 90 18 120/73 97 04/14/18 08:27 04/14/18 10:00 04/14/18 08:27 04/14/18 09:31 04/14/18 08:27 Intake and Output: 04/14/18 04/14/18 06:59 18:59 Intake Total 680 Output Total 1500 Balance -820 - Medications Medications: Current Medications Acetaminophen (Tylenol 325mg Tab) 650 mg PO Q4H PRN PRN Reason: Fever >100.4 F Last Admin: 04/12/18 00:49 Dose: 650 mg Acetaminophen (Tylenol 325mg Tab) 650 mg PO Q4H PRN PRN Reason: Pain, Mild (1-3) Apixaban (Eliquis) 5 mg PO BID KAT[facility]IN PRN Reason: Protocol Atorvastatin Calcium (Lipitor) 40 mg PO DIN [facility] Last Admin: 04/13/18 17:07 Dose: 40 mg Betamethasone/Clotrimazole (Lotrisone) 0 gm TOP DAILY [facility] Last Admin: 04/13/18 09:11 Dose: 1 appful Furosemide (Lasix) 40 mg PO DAILY [facility] Last Admin: 04/14/18 09:31 Dose: 40 mg Cefepime HCl (Maxipime 1gm) 1 gm in 100 mls @ 100 mls/hr IVPB Q24H KATRIN PRN Reason: Protocol Last Admin: 04/13/18 17:15 Dose: 100 mls/hr Vancomycin HCl (Vancomycin 1gm) 1 gm in 250 mls @ 167 mls/hr IVPB DAILY KAT[facility]IN PRN Reason: Protocol Last Admin: 04/14/18 09:31 Dose: 167 mls/hr Levalbuterol HCl (Xopenex) 0.63 mg IH TIDRESP PRN PRN Reason: Shortness of Breath Metoprolol Tartrate (Lopressor) 25 mg PO BID [facility] Montelukast Sodium (Singulair) 10 mg PO DAILY [facility] Last Admin: 04/14/18 09:31 Dose: 10 mg Polyethylene Glycol (Miralax) 17 gm PO DAILY [facility] Last Admin: 04/14/18 09:31 Dose: 17 gm - Labs Labs: 04/13/18 05:30 04/13/18 05:30 PT 13.4 SECONDS (9.4-12.5) H 04/11/18 11:30 INR 1.16 (0.93-1.08) H 04/11/18 11:30 APTT 29.6 Seconds (25.1-36.5) 04/11/18 11:30 - Constitutional Appears: Well, Non-toxic, No Acute Distress - Extremities Exam Extremities Exam: absent: Calf Tenderness Additional comments: Left lower extremity focused exam: Vasc:DP pulses palpable 1/4, PT pulse non-palpable. No pedal hair growth noted. Non-pitting edema noted to LLE. CFT> 3 seconds to all digits Neuro: Gross sensation diminished Derm:Erythema noted from the ankle to the tibial tuberosity- resolving. scab noted to left knee, no drainage, no malodor noted Ortho:No tenderness on palpation to left leg - Neurological Exam Neurological Exam: Alert, Awake Assessment and Plan - Assessment and Plan (Free Text) Assessment: 73 year old male with left leg cellulitis Plan: patient examined and evaluated discussed in detail with attending, Dr. Dobbs labs, chart, vitals reviewed; afebrile, WBC 9.9 on 04/13/18 cont to apply lotirsone to LLE cont abx per ID podiatry will cont to follow patient while in house
--- NOTE | 2018-04-14 16:53 | CP.PCM.PN ---
Subjective - Date & Time of Evaluation Date of Evaluation: 04/14/18 Time of Evaluation: 14:30 - Subjective Subjective: Infectious Disease Follow Up: April 14, 2018 73 yo male with complaints of severe weakness and fatigue for the past 2 days. Complaining of swelling and cellulitis to the left lower leg worsening over the past week. Patient has been admitted for similar problems to the left leg over the past year and has had difficuties with the right leg as well. He only gives a history of hypercholesterolemia, Depression, and PTSD. The patient receives his care at the [facility] in [place] and has a 70% compensation level. He is a of the [place] and believes he had exposure to Agent [place]. The patient is noted to have swelling of the left lower leg as well. Overnight, the patient has been afebrile and no further hypotension episodes today. Atrial fibrillation and tachycardia. The left leg cellulitis improving. Objective - Vital Signs/Intake and Output Vital Signs (last 24 hours): Temp Pulse Resp BP Pulse Ox 98.1 F 90 18 120/73 97 04/14/18 08:27 04/14/18 10:00 04/14/18 08:27 04/14/18 09:31 04/14/18 08:27 Intake and Output: 04/14/18 04/14/18 06:59 18:59 Intake Total 680 Output Total 1500 Balance -820 - Medications Medications: Current Medications Acetaminophen (Tylenol 325mg Tab) 650 mg PO Q4H PRN PRN Reason: Fever >100.4 F Last Admin: 04/12/18 00:49 Dose: 650 mg Acetaminophen (Tylenol 325mg Tab) 650 mg PO Q4H PRN PRN Reason: Pain, Mild (1-3) Apixaban (Eliquis) 5 mg PO BID KATRIN PRN Reason: Protocol Atorvastatin Calcium (Lipitor) 40 mg PO DIN [facility] Last Admin: 04/13/18 17:07 Dose: 40 mg Betamethasone/Clotrimazole (Lotrisone) 0 gm TOP DAILY [facility] Last Admin: 04/13/18 09:11 Dose: 1 appful Furosemide (Lasix) 40 mg PO DAILY [facility] Last Admin: 04/14/18 09:31 Dose: 40 mg Cefepime HCl (Maxipime 1gm) 1 gm in 100 mls @ 100 mls/hr IVPB Q24H KATRIN PRN Reason: Protocol Last Admin: 04/13/18 17:15 Dose: 100 mls/hr Vancomycin HCl (Vancomycin 1gm) 1 gm in 250 mls @ 167 mls/hr IVPB DAILY [facility]AT[facility]IN PRN Reason: Protocol Last Admin: 04/14/18 09:31 Dose: 167 mls/hr Levalbuterol HCl (Xopenex) 0.63 mg IH TIDRESP PRN PRN Reason: Shortness of Breath Metoprolol Tartrate (Lopressor) 25 mg PO BID [facility] Montelukast Sodium (Singulair) 10 mg PO DAILY [facility] Last Admin: 04/14/18 09:31 Dose: 10 mg Polyethylene Glycol (Miralax) 17 gm PO DAILY [facility] Last Admin: 04/14/18 09:31 Dose: 17 gm - Labs Labs: 04/13/18 05:30 04/13/18 05:30 PT 13.4 SECONDS (9.4-12.5) H 04/11/18 11:30 INR 1.16 (0.93-1.08) H 04/11/18 11:30 APTT 29.6 Seconds (25.1-36.5) 04/11/18 11:30 - Constitutional Appears: Non-toxic, No Acute Distress, Chronically Ill - Head Exam Head Exam: ATRAUMATIC, NORMOCEPHALIC - Eye Exam Eye Exam: EOMI, PERRL Pupil Exam: NORMAL ACCOMODATION, PERRL - ENT Exam ENT Exam: Mucous Membranes Moist, Normal External Ear Exam, TM's Normal Bilaterally - Neck Exam Neck Exam: Full ROM, Normal Inspection - Respiratory Exam Respiratory Exam: Clear to Ausculation Bilateral, NORMAL BREATHING PATTERN. absent: Rales, Rhonchi, Wheezes - Cardiovascular Exam Cardiovascular Exam: REGULAR RHYTHM, RRR, +S1, +S2 - GI/Abdominal Exam GI & Abdominal Exam: Soft, Tenderness, Normal Bowel Sounds. absent: Distended - Extremities Exam Extremities Exam: Full ROM Additional comments: left leg edema up to tibial tuberosity with erythema. Improving. Scab on the left lower knee slowly healing. No drainage. - Neurological Exam Neurological Exam: Alert, Awake, CN II-XII Intact, Oriented x3 - Psychiatric Exam Psychiatric exam: Normal Affect, Normal Mood - Skin Skin Exam: Intact, Normal Color Additional comments: except left leg. Assessment and Plan - Assessment and Plan (Free Text) Assessment: 73 yo male with lower left leg cellulitis and questions of the patient 's living situation. Start on Vancomycin and Cefepime for now. Monitor renal function. The patient with renal insufficiency at this time. Significant leukocytosis noted as well starting at 21.1. Robison cultures. Antibiotic to be renally dosed for now. Renal function was improving however. Cultures are still pending. Blood cultures are unlikely to grow an organism. Multiple cardiac issues. The patient with hypotension and atrial fibrillation. Low grade fevers overnight but afebrile so far today. Leukocytosis has improved to 9.9 today. Maintain IV Vancomycin and Cefepime for now. The patient's living situation is supposedly improving on April 25. Thank you for allowing me to participate in the care of the patient, we will follow with you.
[2018-04-14] MEDS: Cefepime 1gm in NS 100ml 1 GM/100 ML BAG IVPB SCH (18:26)
--- NOTE | 2018-04-14 22:13 | PN ---
DATE: 04/14/2018 PULMONARY PROGRESS NOTE REFERRING PHYSICIAN: Mari Rai MD. SUBJECTIVE: The patient is sitting up in the chair. Night was unremarkable. No headache. No rhinitis. No nausea, no vomiting. No dysuria. Still has left leg swelling, erythema, and tenderness. PHYSICAL EXAMINATION: GENERAL: In no acute distress. VITAL SIGNS: Temperature is 98, heart rate is 90, respiratory rate 18, blood pressure 120/73, pulse oximetry 97% on room air. HEENT: Moist mucous membranes. Crowded airway. NECK: Supple. No JVD. LUNGS: Have a fair airflow. No rhonchi. HEART: S1 and S2. ABDOMEN: Soft and nontender. No organomegaly. EXTREMITIES: He has left leg erythema, tenderness, and swelling. NEUROLOGIC: Awake and alert. Follows simple commands. MEDICATIONS: He is on Eliquis 5 mg twice a day, Lasix 40 mg daily, Lipitor 40 mg daily, metoprolol tartrate 25 mg twice a day, Lotrisone to affected area, cefepime 1 g IV every 24 hours, MiraLax 17 g daily, Singulair 10 mg daily, Tylenol p.r.n., vancomycin 1 g IV daily, and Xopenex 0.63 three times a day p.r.n. LABORATORY DATA: Reviewed and no new lab is available since yesterday. Microbiology: Blood cultures have been negative. IMPRESSION AND PLAN: Recurrent cellulitis of lower extremity, status post fall with skin abrasion, chronic obstructive lung disease, sleep apnea syndrome, history of depression, history of post-traumatic stress disorder, atrial fibrillation. We will continue antibiotics, bronchodilator, keep head at 45 degrees, sleep apnea precaution. Avoid nocturnal sedation. Also, the patient is homeless, social insurance analyst need to see the patient. Thank you and we will follow with you. Fermín Olguin MD
--- NOTE | 2018-04-14 22:14 | CON ---
DATE: 04/14/2018 SERVICE: Cardiology. REASON FOR CONSULTATION AND FOLLOWUP: Atrial fibrillation, duration unknown. BRIEF CLINICAL HISTORY: This is a 73-year-old male with past medical history significant for asthma, posttraumatic stress disorder, admitted with cellulitis in the past, came in with increased leg swelling, found in the ER to be in atrial fibrillation. The patient denies any prior history of heart problem. SOCIAL HISTORY: He used to smoke every now and then and used to drink, but now completely quit, a very few times he smoked. FAMILY HISTORY: Noncontributory. ALLERGIES: NO KNOWN DRUG ALLERGIES. CURRENT MEDICATIONS: The patient is taking Singulair, Lasix, atorvastatin, and potassium. REVIEW OF SYSTEMS: As per HPI. PHYSICAL EXAMINATION: GENERAL: Height of the patient 6 feet 3 inches, weight of the patient 217, body mass 27.1 kg/m2. VITAL SIGNS: Temperature afebrile, heart rate 90, blood pressure 120/73. HEENT: PERRLA, intact. NECK: Supple. No carotid bruit or thyromegaly. CHEST: Clear to auscultation. HEART: S1 and S2, regular. ABDOMEN: Soft. EXTREMITIES: Clubbing and cyanosis negative. LABORATORY DATA: Blood workup as follows: WBC 9.9, hemoglobin 13.9, hematocrit 42.9, and platelet count 185. Chemistry shows sodium 144, potassium 4, chloride 107, bicarbonate 28, anion gap of 13. BUN 32 and creatinine 1.1. TSH 3.26. Triglycerides 122, cholesterol 119, LDL 52, HDL 32. Vitamin B12 of 215. Folate 14.3. EKG shows atrial fibrillation, rate 109. T-wave inversion V5 to V6. IMPRESSION AND PLAN: Atrial fibrillation, duration unknown. Denies any coronary artery disease, but in history and physical examination, the patient had coronary artery bypass surgery, but the patient refused any kind of cardiac problem in the past. Hypertension, hyperlipidemia, atrial fibrillation, rule out coronary artery disease, stress test. We will start Eliquis and we will follow with you. We will put low-dose of beta-pilar as well as atorvastatin. Continue aspirin. We will get a stress test. Discussed with the patient because of the multiple risk factors of coronary artery disease, suggest echo and stress thallium. We will get low-dose beta-pilar to control the heart rate. Continue treatment for cellulitis aggressively. We will discontinue aspirin. So far, no evidence of acute [place] noted. Though, the troponin appears in the indeterminate range, we will get a stress test. We will keep n.p.o. after the breakfast for stress test in the morning. Further recommendations after the initial workup and the finding of lab test. Once we started Eliquis, we will discontinue Plavix. If the stress test is negative, we will continue Eliquis and low-dose beta-pilar. We will follow with you. Thank you Dr. Rai, for providing us the opportunity in taking care of the patient, Scott Tadeo. Fermín Chen MD
--- NOTE | 2018-04-15 01:06 | PN ---
DATE: 04/14/2018 SUBJECTIVE: Patient was seen and examined at the bedside on 04/14/2018, looking comfortable. Still having swelling of the legs, red and warm, especially, left one and going for stress test tomorrow. No fever, no chills. No nausea, vomiting or diarrhea. PHYSICAL EXAMINATION: VITAL SIGNS: Temperature 98, heart rate 90, respiratory rate 18, blood pressure 120/70, pulse oximetry 97% on room air. HEENT: Head: Normocephalic, atraumatic. Eyes: PERRLA. Extraocular muscles are intact. Conjunctivae are clear. Nose: Patent. Mucous membranes moist. NECK: Supple. No carotid bruit, JVD, or thyromegaly. CHEST: Bilaterally symmetrical. HEART: S1 and S2 positive. LUNGS: Clear to auscultation. ABDOMEN: Soft, nontender, no organomegaly. EXTREMITIES: Has trace edema and redness and swelling, especially, left. NEUROLOGICAL: Awake, alert. Follows simple commands. Moving all 4 extremities. MEDICATIONS: Eliquis, Lasix, Lipitor, metoprolol, Lotrisone, cefepime, MiraLax, Singulair, Tylenol, Xopenex. LABORATORY DATA: We do not have recent labs today, but I reviewed old labs. ASSESSMENT AND PLAN: Mr. Scott Tadeo is a 73-year-old male with recurrent cellulitis of the lower extremities, especially, left, status post fall with skin abrasions, ataxia, chronic obstructive lung disease, sleep apnea syndrome, history of depression and posttraumatic stress disorder, now has atrial fibrillation, getting Eliquis. We will continue antibiotics, bronchodilators. Keep head at 45 degrees elevated. Sleep apnea precautions. Avoid nocturnal sedation. The patient is homeless, social director are working on that. Tomorrow, the patient is going for stress test. We will encourage the patient to have physical therapy. Gastrointestinal and deep venous thrombosis prophylaxis. Repeat labs. We will follow up. Mari Rai MD
[2018-04-15 05:14] VITALS: TEMP 98.3
[2018-04-15 06:48] LABS: BASO # 0.04 K/mm3 (0.0-2.0); BASO % 0.4 % (0.0-3.0); EOS # 0.1 (0.0-0.7); GRAN # 6.6 (1.4-6.5); GRAN % 71.5 % (50.0-68.0); LYMPH # 1.6 (1.2-3.4); LYMPH % 17.2 % (22.0-35.0); MEAN CELL VOLUME 93.5 fl (80.0-105.0); MEAN CORPUSCULAR HEMOGLOBIN 30.3 pg (25.0-35.0); MEAN CORPUSCULAR HGB CONC 32.4 g/dl (31.0-37.0); MEAN PLATELET VOLUME 11.3 fl (7.0-11.0); MONO # 0.9 (0.1-0.6); MONO % 9.9 % (1.0-6.0); RBC 4.29 10^6/uL (3.5-6.1); RED CELL DISTRIBUTION WIDTH 13.7 % (11.5-14.5); WHITE BLOOD COUNT 9.2 10^3/ul (4.5-11.0)
[2018-04-15 07:12] LABS: ALB/GLOB RATIO 0.9 (1.1-1.8); ALBUMIN 2.9 g/dL (3.0-4.8); ALT/SGPT 29 U/L (7-56); AST/SGOT 38 U/L (17-59); BLOOD UREA NITROGEN 24 mg/dL (7-21); CALCIUM 8.2 mg/dL (8.4-10.5); GFR AFRICAN-AMERICAN > 60; GFR NON-AFRICAN AMERICAN > 60
[2018-04-15 08:26] VITALS: RESP 18; O2SAT 100
[2018-04-15] MEDS ORDERED: Potassium Chloride 20 mEq ER Tab PO ONE (10:20)
[2018-04-15] MEDS ORDERED: Aminophylline 25 mg/ml Inj ONE (11:10)
--- NOTE | 2018-04-15 12:35 | CARD ---
APPROVED REPORT EXAM: Two-dimensional and M-mode echocardiogram with Doppler and color Doppler. INDICATION Chest Pain LVFX 2D DIMENSIONS Left Atrium (2D)4.1 (1.6-4.0cm)IVSd1.2 (0.7-1.1cm) LVDd3.5 (3.9-5.9cm)PWd1.3 (0.7-1.1cm) LVDs2.5 (2.5-4.0cm)FS (%) 28.1 % LVEF (%)55.4 (>50%) M-Mode DIMENSIONS Aortic Root3.40 (2.2-3.7cm)Aortic Cusp Exc.1.90 (1.5-2.0cm) Aortic Valve AoV Peak Qfiyuyzw205.0cm/Gilda Peak GR.6mmHg Mitral Valve E/A ratio0.0 TDI E/Lateral E'0.0E/Medial E'0.0 Pulmonary Valve PV Peak Dtztyuxb86.8cm/sPV Peak Grad.1mmHg Tricuspid Valve TR Peak [id number]/sRAP [id number] Peak Gr.23mmHg [id number] LEFT VENTRICLE The left ventricle is normal size. There is borderline to mild concentric left ventricular hypertrophy. The left ventricular function is normal.EF-55% There is normal LV segmental wall motion. A Fib No left ventricle thrombus noted on this study. There is no ventricular septal defect visualized. There is no left ventricular aneurysm. There is no mass noted in the left ventricle. RIGHT VENTRICLE The right ventricle is normal size. There is normal right ventricular wall thickness. The right ventricular systolic function is normal. ATRIA The left atrium is mildly dilated. The right atrium is mildly dilated. The interatrial septum is intact with no evidence for an atrial septal defect. AORTIC VALVE The aortic valve is thickened but opens well. No aortic regurgitation is present. There is no aortic valvular stenosis. There is no aortic valvular vegetation. MITRAL VALVE The mitral valve is thickened but opens well. Mitral regurgitation is trace to mild. There is no mitral valve stenosis. There is no evidence of mitral valve prolapse. TRICUSPID VALVE The tricuspid valve leaflets are thickened , but open well. There is mild tricuspid regurgitation.RVSP-33 mmof Hg. There is no tricuspid valve stenosis. There is no tricuspid valve prolapse or vegetation. PULMONIC VALVE The pulmonary valve is normal in structure. There is no pulmonic valvular regurgitation. There is no pulmonic valvular stenosis. GREAT VESSELS The aortic root is normal in size. The ascending aorta is normal in size. The pulmonary artery is normal. The IVC is normal in size and collapses >50% with inspiration. PERICARDIAL EFFUSION There is no pleural effusion. There is no pericardial effusion. <Conclusion> The left ventricle is normal size. There is borderline to mild concentric left ventricular hypertrophy. The left ventricular function is normal.EF-55% No aortic regurgitation is present. Mitral regurgitation is trace to mild. There is mild tricuspid regurgitation.RVSP-33 mmof Hg. The IVC is normal in size and collapses >50% with inspiration. There is no pericardial effusion. No pericardial effusion ,no Thrombus noted.
[2018-04-15] MEDS: POLYETHYLENE GLYCOL 3350 17 GM/Dose PACKET PO SCH (14:29)
[2018-04-15 14:30] VITALS: BP 130/78; PULSE 120
--- NOTE | 2018-04-15 15:19 | CP.PCM.PN ---
<[facility] - Last Filed: 04/15/18 15:17> Subjective - Date & Time of Evaluation Date of Evaluation: 04/15/18 Time of Evaluation: 15:18 - Subjective Subjective: Podiatry Progress note for Dr. Gr 73 year old male was seen and evaluated for left lower extremity cellulitis- improving. Patient is seen resting comfortably in bed, in NAD, and AA0x3. Patient reports that he feels better. Reports he was able to walk around today. Currently denies any n/v/f/c/sob/cp.Denies pain to the lower extremity. No new pedal complaints Objective - Vital Signs/Intake and Output Vital Signs (last 24 hours): Temp Pulse Resp BP Pulse Ox 98.3 F 120 H 18 130/78 100 04/15/18 08:26 04/15/18 14:28 04/15/18 08:26 04/15/18 14:28 04/15/18 08:26 Intake and Output: 04/15/18 04/15/18 06:59 18:59 Intake Total 600 360 Output Total 1100 400 Balance -500 -40 - Medications Medications: Current Medications Acetaminophen (Tylenol 325mg Tab) 650 mg PO Q4H PRN PRN Reason: Fever >100.4 F Last Admin: 04/12/18 00:49 Dose: 650 mg Acetaminophen (Tylenol 325mg Tab) 650 mg PO Q4H PRN PRN Reason: Pain, Mild (1-3) Apixaban (Eliquis) 5 mg PO BID [facility] PRN Reason: Protocol Last Admin: 04/15/18 14:28 Dose: 5 mg Atorvastatin Calcium (Lipitor) 40 mg PO DIN [facility] Last Admin: 04/14/18 18:27 Dose: 40 mg Betamethasone/Clotrimazole (Lotrisone) 0 gm TOP DAILY [facility] Last Admin: 04/14/18 10:50 Dose: 1 appful Furosemide (Lasix) 40 mg PO DAILY [facility] Last Admin: 04/15/18 14:28 Dose: 40 mg Cefepime HCl (Maxipime 1gm) 1 gm in 100 mls @ 100 mls/hr IVPB Q24H [facility] PRN Reason: Protocol Last Admin: 04/14/18 18:26 Dose: 100 mls/hr Vancomycin HCl (Vancomycin 1gm) 1 gm in 250 mls @ 167 mls/hr IVPB DAILY [facility] PRN Reason: Protocol Last Admin: 04/14/18 09:31 Dose: 167 mls/hr Levalbuterol HCl (Xopenex) 0.63 mg IH TIDRESP PRN PRN Reason: Shortness of Breath Metoprolol Tartrate (Lopressor) 25 mg PO BID [facility] Last Admin: 04/15/18 14:28 Dose: 25 mg Montelukast Sodium (Singulair) 10 mg PO DAILY [facility] Last Admin: 04/15/18 14:29 Dose: 10 mg Polyethylene Glycol (Miralax) 17 gm PO DAILY [facility] Last Admin: 04/15/18 14:29 Dose: 17 gm - Labs Labs: 04/15/18 06:00 04/15/18 06:00 PT 13.4 SECONDS (9.4-12.5) H 04/11/18 11:30 INR 1.16 (0.93-1.08) H 04/11/18 11:30 APTT 29.6 Seconds (25.1-36.5) 04/11/18 11:30 - Constitutional Appears: Well, Non-toxic, No Acute Distress - Extremities Exam Extremities Exam: absent: Calf Tenderness Additional comments: Left lower extremity focused exam: Vasc:DP pulses palpable 1/4, PT pulse non-palpable. No pedal hair growth noted. Non-pitting edema noted to LLE. CFT> 3 seconds to all digits Neuro: Gross sensation diminished Derm:Erythema noted from the ankle to the tibial tuberosity- resolving. scab noted to left knee, no drainage, no malodor noted Ortho:No tenderness on palpation to left leg Assessment and Plan - Assessment and Plan (Free Text) Assessment: 73 year old male with left leg cellulitis- resolving Plan: patient examined and evaluated discussed in detail with attending, Dr. Gr labs, chart, vitals reviewed; afebrile, WBC 9.9 on 04/13/18 cont to apply lotirsone to LLE cont abx per ID podiatry will cont to follow patient while in house <Abebe Gr - Last Filed: 04/15/18 15:20> Objective - Vital Signs/Intake and Output Vital Signs (last 24 hours): Temp Pulse Resp BP Pulse Ox 98.3 F 120 H 18 130/78 100 04/15/18 08:26 04/15/18 14:28 04/15/18 08:26 04/15/18 14:28 04/15/18 08:26 Intake and Output: 04/15/18 04/15/18 06:59 18:59 Intake Total 600 360 Output Total 1100 400 Balance -500 -40 - Medications Medications: Current Medications Acetaminophen (Tylenol 325mg Tab) 650 mg PO Q4H PRN PRN Reason: Fever >100.4 F Last Admin: 04/12/18 00:49 Dose: 650 mg Acetaminophen (Tylenol 325mg Tab) 650 mg PO Q4H PRN PRN Reason: Pain, Mild (1-3) Apixaban (Eliquis) 5 mg PO BID [facility] PRN Reason: Protocol Last Admin: 04/15/18 14:28 Dose: 5 mg Atorvastatin Calcium (Lipitor) 40 mg PO DIN [facility] Last Admin: 04/14/18 18:27 Dose: 40 mg Betamethasone/Clotrimazole (Lotrisone) 0 gm TOP DAILY [facility] Last Admin: 04/14/18 10:50 Dose: 1 appful Furosemide (Lasix) 40 mg PO DAILY [facility] Last Admin: 04/15/18 14:28 Dose: 40 mg Cefepime HCl (Maxipime 1gm) 1 gm in 100 mls @ 100 mls/hr IVPB Q24H [facility] PRN Reason: Protocol Last Admin: 04/14/18 18:26 Dose: 100 mls/hr Vancomycin HCl (Vancomycin 1gm) 1 gm in 250 mls @ 167 mls/hr IVPB DAILY [facility] PRN Reason: Protocol Last Admin: 04/14/18 09:31 Dose: 167 mls/hr Levalbuterol HCl (Xopenex) 0.63 mg IH TIDRESP PRN PRN Reason: Shortness of Breath Metoprolol Tartrate (Lopressor) 25 mg PO BID [facility] Last Admin: 04/15/18 14:28 Dose: 25 mg Montelukast Sodium (Singulair) 10 mg PO DAILY [facility] Last Admin: 04/15/18 14:29 Dose: 10 mg Polyethylene Glycol (Miralax) 17 gm PO DAILY [facility] Last Admin: 04/15/18 14:29 Dose: 17 gm - Labs Labs: 04/15/18 06:00 04/15/18 06:00 PT 13.4 SECONDS (9.4-12.5) H 04/11/18 11:30 INR 1.16 (0.93-1.08) H 04/11/18 11:30 APTT 29.6 Seconds (25.1-36.5) 04/11/18 11:30 Attending/Attestation - Attestation I have personally seen and examined this patient.: Yes I have fully participated in the care of the patient.: Yes I have reviewed all pertinent clinical information, including history, physical exam and plan: Yes
[2018-04-15] MEDS: Vancomycin 1gm in NS 250ml 1 GM/250 ML BAG IVPB SCH (15:43)
--- NOTE | 2018-04-15 16:01 | PN ---
DATE: 04/15/2018 REASON FOR CONSULTATION AND FOLLOWUP: Atrial fibrillation of unknown duration. SUBJECTIVE: Denies any chest pain, shortness of breath or any palpitation. PHYSICAL EXAMINATION: GENERAL: The patient is n.p.o., anxious to go for a stress test, no chest pain and no complaint. VITAL SIGNS: Temperature afebrile, heart rate 90, blood pressure is 119/83. HEENT: PERRLA, intact. NECK: Supple. No carotid bruits or thyromegaly. CHEST: Clear to auscultation. HEART: S1 and S2 regular. ABDOMEN: Soft. EXTREMITIES: Clubbing and cyanosis negative. LABORATORY DATA: Blood workup as follows; WBC 9.8, hemoglobin 13, hematocrit 40.1, platelet count 216. Chemistry shows sodium 142, potassium 3, chloride 105, carbon dioxide 30, anion gap of 11, BUN 24, creatinine 0.9, triglycerides 122, LDL 52, total cholesterol 119, TSH 3.29. Hemoglobin A1c is 6. IMPRESSION: Atrial fibrillation, chronicity unknown, possibly chronic; history of open heart surgery at [facility] 32 years ago in 1985 for possible ventricular septal defect repair. I am not sure the patient states hole in the heart was repaired at [facility], since then patient is not on any medication. He was discharged after the surgery after 2 weeks. No blood thinner or no other medication. History of posttraumatic stress disorder, history of cellulitis, admitted with cellulitis of left leg; hypertension and hyperlipidemia. RECOMMENDATIONS: Start low-dose of beta-iplar. Continue atorvastatin. A stress test today and echo today to assess LV function and dimension of the chamber size. Started Eliquis because of the patient's high FARHANA score, 5 p.o. b.i.d. Continue gentle diuretics. Continue atorvastatin. Continue metoprolol. We will follow with you. Thank you, Dr. Rai, for providing us the opportunity in taking care of the patient, Scott Tadeo. Further recommendation depending upon hospital course. We will follow with you. We will supplement potassium. Fermín Chen MD
--- NOTE | 2018-04-15 19:19 | CP.PCM.PN ---
Subjective - Date & Time of Evaluation Date of Evaluation: 04/15/18 Time of Evaluation: 13:00 - Subjective Subjective: Infectious Disease Follow Up: April 15, 2018 73 yo male with complaints of severe weakness and fatigue for the past 2 days. Complaining of swelling and cellulitis to the left lower leg worsening over the past week. Patient has been admitted for similar problems to the left leg over the past year and has had difficuties with the right leg as well. He only gives a history of hypercholesterolemia, Depression, and PTSD. The patient receives his care at the [facility] in [place] and has a 70% compensation level. He is a of the [place] and believes he had exposure to Agent [place]. The patient is noted to have swelling of the left lower leg as well. Overnight, the patient has been afebrile and no further hypotension episodes today. Atrial fibrillation and tachycardia. The left leg cellulitis improving slowly. Objective - Vital Signs/Intake and Output Vital Signs (last 24 hours): Temp Pulse Resp BP Pulse Ox 98.3 F 120 H 18 130/78 100 04/15/18 08:26 04/15/18 14:28 04/15/18 08:26 04/15/18 14:28 04/15/18 08:26 Intake and Output: 04/15/18 04/16/18 18:59 06:59 Intake Total 360 Output Total 400 Balance -40 - Labs Labs: 04/15/18 06:00 04/15/18 06:00 PT 13.4 SECONDS (9.4-12.5) H 04/11/18 11:30 INR 1.16 (0.93-1.08) H 04/11/18 11:30 APTT 29.6 Seconds (25.1-36.5) 04/11/18 11:30 - Constitutional Appears: Non-toxic, No Acute Distress, Chronically Ill - Head Exam Head Exam: ATRAUMATIC, NORMOCEPHALIC - Eye Exam Eye Exam: EOMI, PERRL Pupil Exam: NORMAL ACCOMODATION, PERRL - ENT Exam ENT Exam: Mucous Membranes Moist, Normal External Ear Exam, TM's Normal Bilaterally - Neck Exam Neck Exam: Full ROM, Normal Inspection - Respiratory Exam Respiratory Exam: Clear to Ausculation Bilateral, NORMAL BREATHING PATTERN. absent: Rales, Rhonchi, Wheezes - Cardiovascular Exam Cardiovascular Exam: REGULAR RHYTHM, RRR, +S1, +S2 - GI/Abdominal Exam GI & Abdominal Exam: Soft, Normal Bowel Sounds. absent: Distended, Tenderness - Extremities Exam Extremities Exam: Full ROM Additional comments: left leg edema up to tibial tuberosity with erythema. Improving. Scab on the left lower knee slowly healing. No drainage. - Neurological Exam Neurological Exam: Alert, Awake, CN II-XII Intact, Oriented x3 - Psychiatric Exam Psychiatric exam: Normal Affect, Normal Mood - Skin Skin Exam: Intact, Normal Color Assessment and Plan - Assessment and Plan (Free Text) Assessment: 73 yo male with lower left leg cellulitis and questions of the patient 's living situation. Start on Vancomycin and Cefepime for now. Monitor renal function. The patient with renal insufficiency at this time. Significant leukocytosis noted as well starting at 21.1. Robison cultures. Antibiotic to be renally dosed for now. Renal function was improving however. Cultures are still pending. Blood cultures are unlikely to grow an organism. Multiple cardiac issues. The patient with hypotension and atrial fibrillation. Low grade fevers overnight but afebrile so far today. Leukocytosis has improved to 9.2 today. Maintain IV Vancomycin and Cefepime for now. The patient's living situation is supposedly improving on April 25. Thank you for allowing me to participate in the care of the patient, we will follow with you. Patient going to [facility].
--- NOTE | 2018-04-15 22:39 | CARD ---
APPROVED REPORT Protocol: TATIANA Test Type: Lexiscan Sestamibi Stress Test Attending Physician: Dr. Fermín Chen Referring Physician: Dr. Mari Rai Test Indications: Chest Pain Height:6 ft 3 in Weight:217lbs Medications: tylenol, eliquis, lipitor, lotrisone, maxipime, xopenex, lopressor, singulair, miralax, vancomycin Medical History: 73 year old male with a h/o asthma, high cholesterol, surgery to repair a hole in heart, depression and anxiety Target HR: 148 bpm Resting ECG: atrial fibrillation and Resting Heart Rate: 82 bpm Resting Blood Pressure: 124/76mmHg Submaximum (85%): 126 bpm PROCEDURE Pharmacologic stress testing was performed using 0.4mg per 5ml of regadenoson given intravenously over 7-10 seconds. Reversal agent aminophyline 100 mg, given intravenously for Dyspnea. POST EXERCISE Reason for Termination: Protocol completed Target HR: No Max HR: 82 bpm 69% of Maximum Predicted HR: 148 bpm Exercise duration: 00:31 min:sec, 0 Stage Exercise capacity: 1.0METs Max Blood Pressure: 124/76mmHg Blood Pressure response to exercise: normal resting BP - appropriate response Heart Rate response to exercise: appropriate Chest Pain: No, none Angina index: 0 Arrhythmia: No, none ST Change: No, none Deviation: 0 mm INTERPRETATION Stress EKG Conclusion: Negative IV Lexiscan ,Stress test for ischemia and chest pain, Nuclear scan to follow. Signed by Fermín Chen Electronically Approved: 04/15/2018 12:04:11 EXAM: Myocardial Perfusion REST/STRESS Stress Test Type: Pharmacologic Imaging Protocol Rest Spect myocardial perfusion imaging was performed in supine position 45 minutes following the injection of 10.3 mCi of Tc-99 Myoview. At peak stress, the patient was injected intravenously with 30.9mCi of Tc-99 tetrofosmin after an infusion time of 0 minutes and 10 seconds. Gated Stress Spect was performed 65 minutes after intravenous Tc-99 Myoview injection. The images were gated to evaluate regional wall motion and calculate ventricular ejection fraction.Images were reconstructed using backfilter projection method in short horizontal and verticle long axis. Spect slices were generated. LV Perfusion The quality of the study is good. The left ventricle is normal in size. The right ventricle is unremarkable. The lung uptake is normal. The distribution of tracer reveals a small area of moderately decreased perfusion in the apical wall on the stress study. The remainder of the LV myocardium is unremarkable. The rest myocardial perfusion study shows partial improvement of the defect. Wall Motion Normal gated wall motion of the left ventricle. LVEF = 60%. Conclusion 1. Abnormal SPECT myocardial perfusion study. 2. Partially reversible, apical defect is suspcious of ischemia. 3. Normal gated wall motion of the left ventricle.
== END 2018-04-15 16:06 | DRG 872 ==
LOC: ED 10:03 → ERH 12:52 → 3RSO 20:27
PROVIDERS: ADMIT Internal Medicine; ATTEND Internal Medicine
DX: A41.9 Sepsis, unspecified organism (principal); L03.116 Cellulitis of left lower limb; L03.115 Cellulitis of right lower limb; N28.9 Disorder of kidney and ureter, unspecified; J44.9 Chronic obstructive pulmonary disease, unspecified; E78.00 Pure hypercholesterolemia, unspecified; E78.5 Hyperlipidemia, unspecified; E86.0 Dehydration; F43.10 Post-traumatic stress disorder, unspecified; G47.30 Sleep apnea, unspecified; I11.9 Hypertensive heart disease without heart failure; I25.10 Atherosclerotic heart disease of native coronary artery without angina pectoris; I48.91 Unspecified atrial fibrillation; I51.7 Cardiomegaly; Z59.0 Homelessness; Z79.01 Long term (current) use of anticoagulants; Z87.891 Personal history of nicotine dependence; Z95.1 Presence of aortocoronary bypass graft; R40.2412 Glasgow coma scale score 13-15, at arrival to emergency department; I45.10 Unspecified right bundle-branch block

== ENCOUNTER 2018-04-15 16:09 | Inpatient (IN) | payer MEDICARE ==
[2018-04-15] MEDS ORDERED: Levalbuterol 0.63 MG/3 ML Inhal Soln UD IH PRN (16:17)
[2018-04-16 00:04] VITALS: BMI 25.4
[2018-04-16] MEDS ORDERED: Pneumococcal 23-Valent Vaccine IM ONE (00:04)
[2018-04-16] MEDS: Cefepime 1gm in NS 100ml 1 GM/100 ML BAG IVPB SCH (04:59)
[2018-04-16] MEDS: Vancomycin 1gm in NS 250ml 1 GM/250 ML BAG IVPB SCH (05:00)
--- NOTE | 2018-04-16 05:56 | CON ---
DATE: 04/15/2018 PULMONARY CONSULTATION REFERRING PHYSICIAN: Mari Rai MD. REASON FOR CONSULTATION: Chronic lung disease, left lower extremity cellulitis. HISTORY OF PRESENT ILLNESS: This is a 73-year-old gentleman with past medical history significant for chronic obstructive lung disease; Alzheimer-type dementia; has snoring, daytime sleepy and tired; recurrent left lower extremity cellulitis; history of heart surgery in the past; PTSD; on IV antibiotics; also unsteady on his feet; admitted to TICU. PAST MEDICAL HISTORY: As per history of present illness. ALLERGIES: UNKNOWN. SOCIAL HISTORY: Nonsmoker, nondrinker. FAMILY HISTORY: No significant cardiopulmonary disease reported. MEDICATIONS: He is on Eliquis 5 mg twice a day, Lasix 40 mg daily, Lipitor 40 mg daily, metoprolol tartrate 25 mg twice a day, Lotrisone affected area, cefepime 1 g IV daily, MiraLax 17 g daily, Singulair 10 mg daily, Tylenol p.r.n., vancomycin 1 g IV daily, Xopenex inhaled three times a day. REVIEW OF SYSTEMS: No headache, no rhinitis. No cough. No nausea, no vomiting, no diarrhea. Decreased leg swelling. Still has erythema of the leg and some swelling. PHYSICAL EXAMINATION: GENERAL: Lying in the bed, in no acute distress. VITAL SIGNS: Temperature is 98, heart rate 81, respiratory is 20, blood pressure 99/70, pulse ox 100% on room air. HEENT: Moist mucous membrane. Crowded airway. NECK: Supple. No JVD. LUNGS: Have fair airflow with rhonchi. HEART: S1, S2. ABDOMEN: Soft, nontender. No organomegaly. EXTREMITIES: Left leg edema, erythema, and tender to touch. NEUROLOGIC: Awake, alert, follows simple commands. LABORATORY DATA: Shows hemoglobin 13, hematocrit 40.1, WBC 9.2, platelet is 216. Sodium 143, potassium 3.8, chloride 105, bicarbonate 31, BUN of 24, creatinine 0.9, calcium 8.2, magnesium 2.3. AST 38, ALT 29, alk phos is 52. Albumin is 2.9. TSH 3.26. Microbiology: Blood culture has been negative. Had echocardiogram done today, which shows LV ejection fraction of 55%, borderline mild concentric LVH, right ventricle systolic pressure is 33. IMPRESSION AND PLAN: Recurrent cellulitis of left lower extremity with swelling and edema, chronic obstructive lung disease, sleep apnea syndrome, history of depression, posttraumatic stress disorder, atrial fibrillation. Pulmonary point of view, doing okay. Continue bronchodilator. Keep head at 45 degrees. Will need sleep study upon discharge as outpatient. May need Psychiatry consult to show the stability in mental status. Fall precaution. Careful with sedation. Thank you and we will follow with you. Fermín Olguin MD
--- NOTE | 2018-04-16 07:23 | CP.PCM.CON ---
History of Present Illness - History of Present Illness History of Present Illness: Sitting side of bed, awake, no distress, denies chest pain or shortness of breath Reason for consultation: Continuity of care in TCU, history of open heart surgery, atrial fibrillation, weakness and fatigue,hypertension Brief history of present illness: A 73 year old male who came in the the ER due to fatigue and weakness for few days and also swelling of left leg. In ER found to be in atrial fibrillation. History of asthma,[place] , post traumatic stress disorder, ex smoker,hyperlipidemia. Seen and examined by me and Dr. Chen Review of Systems - Constitutional Constitutional: As Per HPI - EENT Eyes: As Per HPI - Cardiovascular Additional comments: denies chest pain - Respiratory Additional comments: denies cough or shortness of breath - Gastrointestinal Additional comments: denies nausea or vomiting - Genitourinary Additional comments: denies any problems Past Patient History - Infectious Disease Hx of Infectious Diseases: None - Tetanus Immunizations Tetanus Immunization: Unknown - Past Social History Smoking Status: Former Smoker - CARDIAC Hx Hypertension: Yes - PULMONARY Hx Respiratory Disorders: No Hx Asthma: (pt denies having ashtma) - NEUROLOGICAL Hx Neurological Disorder: No - HEENT Hx HEENT Problems: Yes (eyeglasses) - RENAL Hx Chronic Kidney Disease: No - HEMATOLOGICAL/ONCOLOGICAL Hx Blood Disorders: No - INTEGUMENTARY Hx Dermatological Problems: Yes Other/Comment: dark brown dry scab 2cm x 1cm to left knee, multiple red areas to knees, last fall 3 months ago,lle +2 pitting edema bright red warm skin, brght red skin to uppr left thigh and left groin - MUSCULOSKELETAL/RHEUMATOLOGICAL Hx Falls: Yes (last fall 3 months ago) - GASTROINTESTINAL Hx Gastrointestinal Disorders: Yes (CONSTIPATION) - GENITOURINARY/GYNECOLOGICAL Hx Genitourinary Disorders: No Hx Reproductive Disorders: No - PSYCHIATRIC Hx Substance Use: No - SURGICAL HISTORY Hx Open Heart Surgery: Yes (repair hole) - ANESTHESIA Hx Anesthesia: No Hx Anesthesia Reactions: No Hx Malignant Hyperthermia: No Meds Allergies/Adverse Reactions: Allergies Allergy/AdvReac Type Severity Reaction Status Date / Time No Known Allergies Allergy Verified 04/15/18 19:43 - Medications Medications: Current Medications Acetaminophen (Tylenol 325mg Tab) 650 mg PO Q4H PRN; Protocol PRN Reason: Pain, Mild (1-3) Apixaban (Eliquis) 5 mg PO BID KATRIN PRN Reason: Protocol Last Admin: 04/15/18 17:13 Dose: 5 mg Atorvastatin Calcium (Lipitor) 40 mg PO DIN KATRIN PRN Reason: Protocol Last Admin: 04/15/18 17:14 Dose: 40 mg Betamethasone/Clotrimazole (Lotrisone) 0 gm TOP DAILY KATRIN PRN Reason: Protocol Furosemide (Lasix) 40 mg PO 0630 KATRIN PRN Reason: Protocol Cefepime HCl (Maxipime 1gm) 1 gm in 100 mls @ 100 mls/hr IVPB 0600 KATRIN PRN Reason: Protocol Stop: 04/23/18 06:59 Last Admin: 04/16/18 04:59 Dose: 100 mls/hr Vancomycin HCl (Vancomycin 1gm) 1 gm in 250 mls @ 167 mls/hr IVPB 0600 KATRIN PRN Reason: Protocol Stop: 04/23/18 07:30 Last Admin: 04/16/18 05:00 Dose: 167 mls/hr Levalbuterol HCl (Xopenex) 0.63 mg IH TIDRESP PRN; Protocol PRN Reason: Shortness of Breath Metoprolol Tartrate (Lopressor) 25 mg PO 0800,1800 KATRIN PRN Reason: Protocol Last Admin: 04/15/18 17:14 Dose: 25 mg Montelukast Sodium (Singulair) 10 mg PO HS KATRIN PRN Reason: Protocol Last Admin: 04/15/18 21:20 Dose: 10 mg Polyethylene Glycol (Miralax) 17 gm PO DAILY KATRIN PRN Reason: Protocol Physical Exam - Constitutional Appears: No Acute Distress - Eye Exam Eye Exam: Normal appearance - ENT Exam ENT Exam: Mucous Membranes Moist - Respiratory Exam Respiratory Exam: Decreased Breath Sounds, Clear to Auscultation Bilateral, NORMAL BREATHING PATTERN - Cardiovascular Exam Cardiovascular Exam: +S1, +S2 - GI/Abdominal Exam GI & Abdominal Exam: Normal Bowel Sounds, Soft - Extremities Exam Additional comments: left leg cellulitis, 2-3+ edema - Neurological Exam Neurological exam: Alert, Oriented x3 - Skin Skin Exam: Intact, Normal Color, Warm Results - Vital Signs Recent Vital Signs: Last Vital Signs Temp 97.6 F 04/15/18 23:54 Pulse 81 04/15/18 23:54 Resp 18 04/15/18 23:54 BP 99/70 L 04/15/18 23:54 Pulse Ox Assessment & Plan - Assessment and Plan (Free Text) Assessment: A 73 year old male who came in the the ER due to fatigue and weakness for few days and also swelling of left leg. In ER found to be in atrial fibrillation. History of asthma,[place] , post traumatic stress disorder, ex smoker, hyperlipidemia. Follows up medical care in [facility] in [place], [place]. ECHO done 04/14/18- LVEF 55%, Trace MR/TR Stress Test 04/14/18- Abnormal/partially reversible apical defect Plan: Abnormal Stress test, Dr. Chen will discuss with patient for possible cardiac catheterization Transferred to TCU for reconditioning Antibiotics given for leg cellulitis, Cefepime and Vancomycin Encouraged to drink ensure as claimed to have no appetite Started on Eliquis 5 mg BID for Afib On Lipitor 40 mg daily, Lasix 40 mg daily,Lopressor 25 mg BID Continue current treatment Continue current medications Wanted to be home by Saturday Will follow up Plan and treatment discussed with Dr. Chen Thank you Dr. Rai for giving us the opportunity to take care of Mr. Scott Tadeo - Date & Time Date: 04/16/18 Time: 06:30
[2018-04-16] MEDS: Clotrimazole/Betamethasone Cream(15 gm) TOP SCH (10:09)
[2018-04-16] MEDS: POLYETHYLENE GLYCOL 3350 17 GM/Dose PACKET PO SCH (10:09)
--- NOTE | 2018-04-16 15:10 | PN ---
DATE: 04/16/2018 PULMONARY PROGRESS NOTE REFERRING PHYSICIAN: Mari Rai MD SUBJECTIVE: Sitting side of the bed, feels much better, done well in therapy. No headache, no rhinitis. Gets short of breath with exertion, but no nausea, no vomiting, no diarrhea. Still have a left leg erythema, swelling and tender. OBJECTIVE: GENERAL: In no acute distress. VITAL SIGNS: Temperature is 98, heart rate 81, respiratory rate 18, blood pressure 110/81, pulse ox 99% on room air. HEENT: Moist mucous membranes. Crowded airway. NECK: Supple. No JVD. LUNGS: Have fair airflow with rhonchi. HEART: S1 and S2. ABDOMEN: Soft, nontender. No organomegaly. EXTREMITIES: Has a left leg edema, swelling and erythema. NEUROLOGICAL: Awake and alert. Follows simple command. MEDICATIONS: He is on aspirin 325 mg daily, Lasix 40 mg daily, Lipitor 40 mg daily, metoprolol tartrate 25 mg twice a day, Lotrisone to the affected area, cefepime 1 g daily, MiraLax 17 g daily, Plavix 75 mg daily, Singulair 10 mg daily, Tylenol p.r.n. basis, vancomycin 1 g IV daily, Xopenex inhaled three times a day p.r.n. LABORATORY DATA: Reviewed. No new lab is available. IMPRESSION AND PLAN: Recurrent cellulitis of left lower extremity with swelling and edema, chronic obstructive lung disease, may have sleep apnea syndrome, depression, history of posttraumatic stress disorder, atrial fibrillation. Pulmonary point of view, doing okay. Continue bronchodilator. Keep head at 45 degrees. Continue antibiotics. Gastric prophylaxis, deep vein thrombosis prophylaxis. Fall precaution. Thank you and we will follow with you. Fermín Olguin MD
--- NOTE | 2018-04-16 16:51 | CP.PCM.CON ---
History of Present Illness - History of Present Illness History of Present Illness: Podiatry Consult note for Dr. Dobbs 73 year old male was seen and evaluated for left lower extremity cellulitis- improving. Patient is known to podiatry service and was seen for left lower extremity cellutlitis and swelling. Patient is seen resting comfortably in bed, in NAD, and AA0x3. Patient reports that he feels better. Reports he was able to walk around today. Currently denies any n/v/f/c/sob/cp.Denies pain to the lower extremity. No new pedal complaints Past Patient History - Infectious Disease Hx of Infectious Diseases: None - Tetanus Immunizations Tetanus Immunization: Unknown - Past Social History Smoking Status: Former Smoker - CARDIAC Hx Hypertension: Yes - PULMONARY Hx Respiratory Disorders: No Hx Asthma: (pt denies having ashtma) - NEUROLOGICAL Hx Neurological Disorder: No - HEENT Hx HEENT Problems: Yes (eyeglasses) - RENAL Hx Chronic Kidney Disease: No - HEMATOLOGICAL/ONCOLOGICAL Hx Blood Disorders: No - INTEGUMENTARY Hx Dermatological Problems: Yes Other/Comment: dark brown dry scab 2cm x 1cm to left knee, multiple red areas to knees, last fall 3 months ago,lle +2 pitting edema bright red warm skin, brght red skin to uppr left thigh and left groin - MUSCULOSKELETAL/RHEUMATOLOGICAL Hx Falls: Yes (last fall 3 months ago) - GASTROINTESTINAL Hx Gastrointestinal Disorders: Yes (CONSTIPATION) - GENITOURINARY/GYNECOLOGICAL Hx Genitourinary Disorders: No Hx Reproductive Disorders: No - PSYCHIATRIC Hx Substance Use: No - SURGICAL HISTORY Hx Open Heart Surgery: Yes (repair hole) - ANESTHESIA Hx Anesthesia: No Hx Anesthesia Reactions: No Hx Malignant Hyperthermia: No Meds Allergies/Adverse Reactions: Allergies Allergy/AdvReac Type Severity Reaction Status Date / Time No Known Allergies Allergy Verified 04/15/18 19:43 - Medications Medications: Current Medications Acetaminophen (Tylenol 325mg Tab) 650 mg PO Q4H PRN; Protocol PRN Reason: Pain, Mild (1-3) Aspirin (Aspirin) 325 mg PO DAILY [facility] Last Admin: 04/16/18 10:08 Dose: 325 mg Atorvastatin Calcium (Lipitor) 40 mg PO DIN KATRIN PRN Reason: Protocol Last Admin: 04/15/18 17:14 Dose: 40 mg Betamethasone/Clotrimazole (Lotrisone) 0 gm TOP DAILY KATRIN PRN Reason: Protocol Last Admin: 04/16/18 10:09 Dose: 1 applic Clopidogrel Bisulfate (Plavix) 75 mg PO DAILY KATRIN Famotidine (Pepcid) 40 mg PO HS KATRIN Furosemide (Lasix) 40 mg PO 0630 KATRIN PRN Reason: Protocol Cefepime HCl (Maxipime 1gm) 1 gm in 100 mls @ 100 mls/hr IVPB 0600 KATRIN PRN Reason: Protocol Stop: 04/23/18 06:59 Last Admin: 04/16/18 04:59 Dose: 100 mls/hr Vancomycin HCl (Vancomycin 1gm) 1 gm in 250 mls @ 167 mls/hr IVPB 0600 KATRIN PRN Reason: Protocol Stop: 04/23/18 07:30 Last Admin: 04/16/18 05:00 Dose: 167 mls/hr Levalbuterol HCl (Xopenex) 0.63 mg IH TIDRESP PRN; Protocol PRN Reason: Shortness of Breath Metoprolol Tartrate (Lopressor) 25 mg PO 0800,1800 KATRIN PRN Reason: Protocol Last Admin: 04/16/18 08:25 Dose: 25 mg Montelukast Sodium (Singulair) 10 mg PO HS KATRIN PRN Reason: Protocol Last Admin: 04/15/18 21:20 Dose: 10 mg Polyethylene Glycol (Miralax) 17 gm PO DAILY KATRIN PRN Reason: Protocol Last Admin: 04/16/18 10:09 Dose: 17 gm Physical Exam - Constitutional Appears: Well, Non-toxic, No Acute Distress - Extremities Exam Extremities exam: Negative for: calf tenderness Additional comments: lower extremity focused exam: Vasc:DP pulses palpable 1/4, PT pulse non-palpable. No pedal hair growth noted. Non-pitting edema noted to LLE. CFT> 3 seconds to all digits, temperature gradient warm to cold proximal to distal Neuro: Gross sensation diminished Derm:Erythema noted from the ankle to mid leg- resolving. scab noted to left knee, no drainage, no malodor noted Ortho:No tenderness on palpation to left leg - Neurological Exam Neurological exam: Alert, Oriented x3 - Psychiatric Exam Psychiatric exam: Normal Affect, Normal Mood Results - Vital Signs Recent Vital Signs: Last Vital Signs Temp 98.7 F 04/16/18 10:00 Pulse 81 04/16/18 10:00 Resp 18 04/16/18 10:00 BP 110/81 04/16/18 10:00 Pulse Ox 99 04/16/18 10:00 Assessment & Plan - Assessment and Plan (Free Text) Assessment: 73 year old male with left leg cellulitis- resolving Plan: patient examined and evaluated discussed in detail with attending, Dr. Dobbs labs, chart, vitals reviewed; afebrile, WBC 9.2 on 04/15/18 cont to apply lotrisone to LLE tubigrip applied, to be taken off everynight and reapplied every morning cont abx per ID cont w/ physical therapy podiatry will cont to follow patient thank you for allowing us to take part in patient's care
--- NOTE | 2018-04-17 00:32 | HP ---
LOCATION: The patient was seen and examined on bedside on 04/16/2018. CHIEF COMPLAINT: Swelling of the legs. HISTORY OF PRESENT ILLNESS: Mr. Scott Tadeo, a 73-year-old male with past medical history of chronic obstructive lung disease and dementia, history of lower extremity cellulitis, history of fall, history of heart surgery in the past, PTSD, on IV antibiotics, also ataxia and falling a lot. The patient was admitted on the medical floor for cellulitis of the leg. Antibiotics were started. See by Infectious Disease. Now transferred to TICU for further treatment and plan for antibiotics completion and physical therapy because the patient has ataxia, for gait training. PAST MEDICAL HISTORY: As above, history of chronic obstructive lung disease, obstructive sleep apnea syndrome, cellulitis of the leg, coronary artery disease. Now, the patient has abnormal stress test. ALLERGIES: NOT KNOWN. SOCIAL HISTORY: Nonsmoker, nondrinker. FAMILY HISTORY: Nonsignificant. MEDICATIONS: Eliquis, Lasix, Lipitor, metoprolol, Lotrisone, Cefepime, MiraLax, Singulair, vancomycin, Xopenex. REVIEW OF SYSTEMS: The patient was seen and examined on the bedside on 04/16/2018 and looking comfortable. No nausea and vomiting. No diarrhea. No headache. No dizziness. No chest pain. No palpitation. PHYSICAL EXAMINATION: VITAL SIGNS: Temperature 98.7, pulse 80, blood pressure 100/75, respiratory rate 20./ HEENT: Head normocephalic, atraumatic. Eyes PERRLA. Extraocular muscles intact. Conjunctivae clear. Nose patent. Mucous membrane moist. NECK: Supple. No carotid bruit. No JVD or thyromegaly. CHEST: Bilaterally symmetrical. HEART: S1 and S2 positive. LUNGS: Clear to auscultation. ABDOMEN: Soft. Bowel sounds positive. No organomegaly. EXTREMITIES: Still, the patient has edema and redness. NEUROLOGICAL: The patient is awake, alert. Moving all 4 extremities. No focal deficits. ASSESSMENT AND PLAN: Mr. Scott Tadeo, a 73-year-old male with chronic obstructive pulmonary disease, coronary artery disease, has recurrent cellulitis of the left lower leg with swelling edema. May have sleep apnea syndrome, depression, history of posttraumatic stress disorder, atrial fibrillation. Cardiology consult called. The patient went for stress test. According to Dr. Chen, stress test is abnormal. The patient needs catheterization. Pulmonary is on the case. The patient has bronchodilators. Keep head elevated at 45 degrees. Continue antibiotics. Gastric and deep venous thrombosis prophylaxis. Fall precautions. Get physical therapy. We will follow up. Mari Rai MD
[2018-04-17] MEDS: Cefepime 1gm in NS 100ml 1 GM/100 ML BAG IVPB SCH (05:56)
[2018-04-17] MEDS: Vancomycin 1gm in NS 250ml 1 GM/250 ML BAG IVPB SCH (05:57)
--- NOTE | 2018-04-17 08:05 | CP.PCM.PN ---
Subjective - Date & Time of Evaluation Date of Evaluation: 04/17/18 Time of Evaluation: 06:40 - Subjective Subjective: Awake, lying in bed, no distress, denies chest pain or shortness of breath Reason for consultation and follow up: Continuity of care in TCU, history of open heart surgery, atrial fibrillation, weakness and fatigue,hypertension, asthma,[place] , post traumatic stress disorder, ex smoker, hyperlipidemia. Seen and examined by me and Dr. Chen Objective - Vital Signs/Intake and Output Vital Signs (last 24 hours): Temp Pulse Resp BP Pulse Ox 98.7 F 83 20 106/60 99 04/16/18 16:00 04/17/18 07:56 04/16/18 16:00 04/17/18 07:56 04/16/18 10:00 - Medications Medications: Current Medications Acetaminophen (Tylenol 325mg Tab) 650 mg PO Q4H PRN; Protocol PRN Reason: Pain, Mild (1-3) Aspirin (Aspirin) 325 mg PO DAILY [facility] Last Admin: 04/16/18 10:08 Dose: 325 mg Atorvastatin Calcium (Lipitor) 40 mg PO DIN [facility] PRN Reason: Protocol Last Admin: 04/16/18 17:21 Dose: 40 mg Betamethasone/Clotrimazole (Lotrisone) 0 gm TOP DAILY [facility] PRN Reason: Protocol Last Admin: 04/16/18 10:09 Dose: 1 applic Clopidogrel Bisulfate (Plavix) 75 mg PO DAILY [facility] Famotidine (Pepcid) 40 mg PO HS [facility] Last Admin: 04/16/18 21:10 Dose: 40 mg Furosemide (Lasix) 40 mg PO 0630 [facility] PRN Reason: Protocol Cefepime HCl (Maxipime 1gm) 1 gm in 100 mls @ 100 mls/hr IVPB 0600 [facility] PRN Reason: Protocol Stop: 04/23/18 06:59 Last Admin: 04/17/18 05:56 Dose: 100 mls/hr Vancomycin HCl (Vancomycin 1gm) 1 gm in 250 mls @ 167 mls/hr IVPB 0600 [facility] PRN Reason: Protocol Stop: 04/23/18 07:30 Last Admin: 04/17/18 05:57 Dose: 167 mls/hr Levalbuterol HCl (Xopenex) 0.63 mg IH TIDRESP PRN; Protocol PRN Reason: Shortness of Breath Metoprolol Tartrate (Lopressor) 25 mg PO 0800,1800 [facility] PRN Reason: Protocol Last Admin: 04/17/18 07:56 Dose: 25 mg Montelukast Sodium (Singulair) 10 mg PO HS [facility] PRN Reason: Protocol Last Admin: 04/16/18 21:10 Dose: 10 mg Polyethylene Glycol (Miralax) 17 gm PO DAILY [facility] PRN Reason: Protocol Last Admin: 04/16/18 10:09 Dose: 17 gm - Constitutional Appears: No Acute Distress - Head Exam Head Exam: NORMOCEPHALIC - Eye Exam Eye Exam: Normal appearance - ENT Exam ENT Exam: Mucous Membranes Moist - Respiratory Exam Respiratory Exam: Clear to Ausculation Bilateral, NORMAL BREATHING PATTERN - Cardiovascular Exam Cardiovascular Exam: +S1, +S2 - GI/Abdominal Exam GI & Abdominal Exam: Soft, Normal Bowel Sounds - Extremities Exam Extremities Exam: Normal Capillary Refill Additional comments: left leg cellulitis, 1-2 edema - Neurological Exam Neurological Exam: Alert, Awake, Oriented x3 - Psychiatric Exam Psychiatric exam: Normal Affect, Normal Mood - Skin Skin Exam: Intact, Normal Color, Warm Assessment and Plan - Assessment and Plan (Free Text) Assessment: A 73 year old male who came in the the ER due to fatigue and weakness for few days and also swelling of left leg. In ER found to be in atrial fibrillation. History of asthma,[place] , post traumatic stress disorder, ex smoker, hyperlipidemia. Follows up medical care in [facility] in [place], [place]. Plan: For cardiac catheterization tomorrow Saturday NPO post midnight Continue Cefepime and Vancomycin On Lipitor 40 mg daily, Lasix 40 mg daily,Lopressor 25 mg BID Continue current treatment Continue current medications Wanted pillow for his leg at night, RN/PCT provided Will follow up Plan and treatment discussed with Dr. Chen
--- NOTE | 2018-04-17 08:36 | CON ---
DATE: 04/15/2018 Addendum to the initial consult dictated by our nurse practitioner, Giulia Miranda. REASON FOR ADDENDUM: The patient has abnormal stress test, scheduled for cardiac catheterization. Discussed in length with the patient. After a lengthy discussion, the patient agreed for cardiac catheterization. The patient is scheduled for cardiac catheterization on Saturday because the patient is on Eliquis, so it should be 48 hours before the vascular procedure, so I will schedule the patient on Saturday. We will start Plavix 300 mg today and 75 mg from tomorrow, and aspirin 325 mg daily. We will discharge the patient on Saturday at 6 o'clock to same day surgery for cardiac catheterization because the patient is in Transitional Care Unit. After that, the patient will go to rd lab technician and then will go to the telemetry. Explained in length the patient's risks, benefits, and alternative of the procedure. Also, left the message to the ex-, Chantal Tadeo at [phone] about the result of the stress test as well as the plan. Discussed with Chantal. We will try to reach her again. We will keep n.p.o. after midnight of for cardiac catheterization on Saturday. Thank you Dr. Rai, for providing us the opportunity in taking care of the patient, Scott Tdaeo. Fermín Chen MD
[2018-04-17] MEDS: Clotrimazole/Betamethasone Cream(15 gm) TOP SCH (09:27)
[2018-04-17] MEDS: POLYETHYLENE GLYCOL 3350 17 GM/Dose PACKET PO SCH (09:28)
[2018-04-17 11:23] VITALS: O2SAT 98
[2018-04-17 17:33] VITALS: RESP 16; TEMP 97.5
--- NOTE | 2018-04-18 03:35 | PN ---
DATE: 04/17/2018 PULMONARY PROGRESS NOTE REFERRING PHYSICIAN: Mari Rai MD SUBJECTIVE: Sitting side of the bed was unremarkable. Doing well in therapy. No headache, no rhinitis. Gets short of breath with exertion. No nausea, no vomiting. Still left leg has some swelling and erythema. OBJECTIVE: GENERAL: In no acute distress. VITAL SIGNS: Temperature is 98, heart rate 86, respiratory rate is 20, blood pressure 96/65, pulse ox 98% on room air. HEENT: Moist mucous membrane. Crowded airway. NECK: Supple. No JVD. LUNGS: Have a fair airflow with rhonchi. HEART: S1 and S2. ABDOMEN: Soft, nontender. No organomegaly. EXTREMITIES: Left leg has some erythema and swelling. NEUROLOGIC: Awake and alert. Follows simple command. MEDICATIONS: He is on aspirin 325 mg daily, Lasix 40 mg daily, Lipitor 40 mg daily, metoprolol tartrate 25 mg twice a day, Lotrisone to affected area, cefepime 1 g IV daily, MiraLax 17 g daily, Pepcid 40 mg at bedtime, Plavix 75 mg daily, Singulair 10 mg daily, Tylenol p.r.n., vancomycin 1 g IV daily, Xopenex inhale three times a day p.r.n. LABORATORY DATA: Reviewed. No new lab is available. IMPRESSION AND PLAN: Cellulitis of left lower extremity which is slowly improving, chronic obstructive lung disease, sleep apnea syndrome, depression, history of post-traumatic stress disorder, atrial fibrillation, coronary artery disease, scheduled for cardiac cath tomorrow. Pulmonary point of view, doing well. Continue bronchodilator, keep head at 45 degrees, antibiotics, fall precaution. Thank you and we will follow with you. Fermín Olguin MD
[2018-04-18] MEDS: Cefepime 1gm in NS 100ml 1 GM/100 ML BAG IVPB SCH (04:01)
[2018-04-18] MEDS: Vancomycin 1gm in NS 250ml 1 GM/250 ML BAG IVPB SCH (05:01)
[2018-04-18 05:05] VITALS: BP 122/76; PULSE 84
--- NOTE | 2018-04-18 07:18 | PN ---
DATE: 04/17/2018 SUBJECTIVE: Patient is a 73 years old male. Patient is seen and examined at bedside on 04/17/2018. Patient was sitting on the bedside, looking comfortable, worrying about the procedures tomorrow, catheterization. Length of time discussion done with the patient. All questions were answered. He has a history of open heart surgery. Atrial fibrillation, weak and fatigue, hypertension, asthma. He is a [place] , posttraumatic stress disorder, ex-smoker, hypercholesterolemia. Appetite is appropriate. Getting physical therapy. PHYSICAL EXAMINATION: VITAL SIGNS: Temperature 98.7, pulse 83, respiratory rate 20, blood pressure 120/80 , pulse oximetry 99. HEENT: Head normocephalic, atraumatic. Eyes, PERRLA. Extraocular muscles intact. Conjunctivae clear. Nose patent. NECK: Supple, no carotid bruit. No JVD or thyromegaly. CHEST: Bilaterally symmetrical. HEART: S1, S2 positive. LUNGS: Clear to auscultation. ABDOMEN: Soft, bowel sounds present. No organomegaly. EXTREMITIES: No edema, no cyanosis, but improving. NEUROLOGICAL: Patient is awake, alert, moving all 4 extremities, no focal deficit. MEDICATIONS: Tylenol, aspirin, Lipitor, Lotrisone cream, Plavix, Lasix, Maxipime, vancomycin, Xopenex, Lopressor, Protonix, MiraLax. LABORATORY DATA: We do not have recent labs today, but I reviewed old labs. ASSESSMENT AND PLAN: Mr. Scott Tadeo is a 73-year-old male with multiple medical problems, came to the emergency room with fatigue, tired, weakness and swelling of the left leg. In the ER, found to patient had atrial fibrillation. Cardiology consult called. History of asthma, [place] , posttraumatic stress disorder, ex-smoker, hypercholesteremia. Patient went for stress test. Cardiac catheterization tomorrow on Saturday, n.p.o. midnight. Continue cefepime and vancomycin. Gastrointestinal and deep venous thrombosis prophylaxis. Added Lipitor. We will follow up. Mari Rai MD MTDD
== END 2018-04-18 07:54 | disposition short-term general hospital (02) | DRG 92 ==
LOC: TRCU 16:09
PROVIDERS: ADMIT Internal Medicine; ATTEND Internal Medicine
PROC: F07Z9FZ Gait Training/Functional Ambulation Treatment using Assistive, Adaptive, Supportive or Protective Equipment (ICD-10-PCS; principal; 2018-04-17)
PROC: F07L6ZZ Therapeutic Exercise Treatment of Musculoskeletal System - Lower Back / Lower Extremity (ICD-10-PCS; 2018-04-17)
PROC: F08Z2ZZ Grooming/Personal Hygiene Treatment (ICD-10-PCS; 2018-04-17)
DX: R27.0 Ataxia, unspecified (principal); L03.116 Cellulitis of left lower limb; J44.9 Chronic obstructive pulmonary disease, unspecified; I25.10 Atherosclerotic heart disease of native coronary artery without angina pectoris; E78.00 Pure hypercholesterolemia, unspecified; E78.5 Hyperlipidemia, unspecified; F32.9 Major depressive disorder, single episode, unspecified; G30.9 Alzheimer's disease, unspecified; F02.80 Dementia in other diseases classified elsewhere, unspecified severity, without behavioral disturbance, psychotic disturbance, mood disturbance, and anxiety; F43.10 Post-traumatic stress disorder, unspecified; I10 Essential (primary) hypertension; G47.33 Obstructive sleep apnea (adult) (pediatric); I48.91 Unspecified atrial fibrillation; Z79.82 Long term (current) use of aspirin; Z91.81 History of falling; Z79.01 Long term (current) use of anticoagulants; Z87.891 Personal history of nicotine dependence

== ENCOUNTER 2018-04-18 06:27 | Day surgery (SDC) | payer MEDICARE ==
--- NOTE | 2018-04-17 23:05 | HP ---
DATE OF EXAM: 04/17/2018 REASON FOR ADMISSION: Left heart cath, possible angioplasty. BRIEF CLINICAL HISTORY: This is a 73-year-old male with past medical history of open heart surgery at [facility] in 1985 for possible ASD and VSD repair and the patient had been stable. Admitted here with cellulitis of the lower extremity, found to be in atrial fibrillation, duration and chronicity unknown. The patient any heart problem. Subsequently workup done, echo and stress test, stress test was abnormal, so the patient is transferred from Transitional Care Unit for possible cardiac catheterization and possible angioplasty. The patient was on Eliquis, so cardiac catheterization held for 48 hours before cardiac catheterization as the patient was on Eliquis. PAST MEDICAL HISTORY: Significant for hypertension; posttraumatic stress disorder; atrial fibrillation, found to be in this admission, duration and chronicity of atrial fibrillation unknown. SOCIAL HISTORY: Used to smoke now and then and used to drink, but now completely quit. FAMILY HISTORY: Noncontributory. ALLERGIES: NO KNOWN DRUG ALLERGY. CURRENT MEDICATIONS: The patient in Transitional Care Unit was taking metoprolol 25 p.o. b.i.d., Xopenex 0.63 mg, atorvastatin, and Eliquis 5 mg b.i.d., which was held. Last dose of Eliquis was day before yesterday and baby aspirin and clopidogrel were started. Recent cardiac workup as follows: The patient has a stress test dated 04/15/2018 that showed abnormal , partially reversible apical disease, suspicious for ischemia. Normal gated wall motion. The patient had echocardiography done that shows ejection fraction of 55%. No aortic regurgitation is present. [id number] mitral regurgitation, mild tricuspid regurgitation, RV systolic pressure 33. Normal IVC. No pericardial effusion noted. REVIEW OF SYSTEMS: As per HPI. PHYSICAL EXAMINATION: VITAL SIGNS: Temperature afebrile, heart rate 90, blood pressure 104/66. HEENT: PERRLA. Extraocular muscles intact. NECK: Supple. No carotid bruit. No thyromegaly. CHEST: Clear to auscultation. HEART: S1 and S2 regular. ABDOMEN: Soft. EXTREMITIES: Clubbing and cyanosis negative. LABORATORY DATA: EKG shows atrial fibrillation, rate of 80. No acute ST-T changes noted. EKG did on 04/12/2018. WBC 9.8, hemoglobin 13, hematocrit 40.1, platelet count 216 as of 04/15/2018. PT 13.4, INR 1.16, and PTT 29.6 dated 04/11/2018. Sodium 143, potassium 3.8, chloride 105, carbon dioxide 31, anion gap of 11, BUN 24, creatinine 0.9 as of 04/15/2018. Magnesium 2.3. IMPRESSION: Abnormal stress test, atrial fibrillation, hypertension, history of hyperlipidemia, history of possible ventricular septal defect status post open heart surgery at [facility] in 1985. RECOMMENDATION: Left heart catheterization. Further recommendations after cardiac catheterization. Continue aspirin, continue Plavix. Eliquis on hold. We will get another PT/PTT. Thank you, Dr. Rai, for providing us the opportunity in taking care of the patient, Scott Tadeo. Fermín Chen MD
[2018-04-18 07:01] LABS: BASO # 0.06 K/mm3 (0.0-2.0); BASO % 0.8 % (0.0-3.0); EOS # 0.2 (0.0-0.7); EOS % 2.3 % (1.5-5.0); GRAN # 4.83 (1.4-6.5); GRAN % 64.7 % (50.0-68.0); HEMOGLOBIN 14.2 g/dL (14.0-18.0); LYMPH # 1.5 (1.2-3.4); LYMPH % 20.4 % (22.0-35.0); MEAN CELL VOLUME 92.4 fl (80.0-105.0); MEAN CORPUSCULAR HEMOGLOBIN 30.7 pg (25.0-35.0); MEAN CORPUSCULAR HGB CONC 33.3 g/dl (31.0-37.0); MEAN PLATELET VOLUME 10.9 fl (7.0-11.0); MONO # 0.9 (0.1-0.6); MONO % 11.8 % (1.0-6.0); RBC 4.62 10^6/uL (3.5-6.1); RED CELL DISTRIBUTION WIDTH 13.5 % (11.5-14.5); WHITE BLOOD COUNT 7.5 10^3/ul (4.5-11.0)
[2018-04-18 07:13] LABS: BLOOD UREA NITROGEN 17 mg/dL (7-21); CALCIUM 8.5 mg/dL (8.4-10.5); GFR AFRICAN-AMERICAN > 60; GFR NON-AFRICAN AMERICAN > 60; HDL CHOLESTEROL 20 mg/dL (29-60)
[2018-04-18 07:18] LABS: LDL CHOLESTEROL 70 mg/dL (0-129)
[2018-04-18 07:22] LABS: INR 1.12 (0.93-1.08); PARTIAL THROMBOPLASTIN TIME 28.3 Seconds (25.1-36.5); PROTHROMBIN TIME 12.9 SECONDS (9.4-12.5)
[2018-04-18] MEDS ORDERED: Phenylephrine 10 mg/ml Inj ONE (07:27)
[2018-04-18] MEDS ORDERED: Lidocaine 2% Inj (20ml) ONE (07:27)
[2018-04-18] MEDS ORDERED: Midazolam 2 MG/2 ML VIAL ONE (07:28)
[2018-04-18] MEDS ORDERED: Verapamil 2 ML ONE (07:28)
[2018-04-18] MEDS ORDERED: Iohexol 350mgl/ml 50 ML ONE (07:28)
[2018-04-18] MEDS ORDERED: Nitroglycerin 50mg in D5W 50 MG/250 ML BOTTLE IV ONE (07:29)
[2018-04-18] MEDS ORDERED: Iodixanol 320 MG/ML 200 ML BOTTLE IV ONE (07:29)
[2018-04-18] MEDS ORDERED: Iodixanol 320 MG/ML 100 ML BOTTLE IV ONE (07:29)
[2018-04-18] MEDS ORDERED: Bacitracin 500 Units/gm Oint Foilpak UD TOP ONE (08:32)
[2018-04-18] MEDS ORDERED: Levalbuterol 0.63 MG/3 ML Inhal Soln UD IH PRN (08:37)
[2018-04-18] MEDS ORDERED: Sodium Chloride 0.9% 1,000 ML IV SCH (08:45)
--- NOTE | 2018-04-18 08:58 | CPOSTOP ---
DATE: 04/18/2018 CARDIOVASCULAR LAB POST PROCEDURE NOTE DICTATING PHYSICIAN: Fermín Chen MD. YACHT CAPTAIN: Rafat Cooper, data communications technician. TYPE OF ANESTHESIA: Moderate conscious sedation. Total dose given 1 mg of Versed, 50 mcg of fentanyl. PRE-PROCEDURE DIAGNOSES: Chest pain, abnormal stress test. PROCEDURE PERFORMED: Left heart catheterization. FINDINGS: Nonobstructive coronary artery disease. FINAL DIAGNOSES: Nonobstructive coronary artery disease,limited to distal circumflex. POST PROCEDURE CONDITION: Post procedure, the patient's condition is stable. VASCULAR ACCESS: Left radial. CLOSURE DEVICE APPLIED: TR Band. TOTAL RADIATION DOSE: 6337.75 milligray unit. FLUORO TIME: 2.7 minutes. Fermín Chen MD MTDEvon
--- NOTE | 2018-04-18 09:44 | CARD ---
APPROVED REPORT Procedure(s) performed: Left Heart Catheterization HISTORY The patient is a 73 year-old male with a history of : most recent EF: 60%. (EF Method: RADIONUCLIDE), chronic lung disease, hypertension , dyslipidemia , Admitted with Cellulitis of right Leg and af ib Chronicity of SA fib Unknown, Hx of OHS in 1985 for Possible VSD repair in [facility]. INDICATION The indication(s) include : positive stress test. CASE TECHNIQUE The patient was brought electively to the Cardiac Catheterization Laboratory in a fasting state and was prepped and draped in a sterile manner. The left wrist was infiltrated with 2% Lidocaine subcutaneous anesthesia. A 6FR GLIDESHEATH ACCESS KIT sheath was inserted into the left radial artery without difficulty. Coronary angiography was performed using coronary diagnostic catheters. The left coronary system was accessed and visualized with a Diagnostic ,5 Fr JL 4 catheter. The right coronary system was accessed and visualized with a Diagnostic ,5 Fr JR 4 catheter. The left ventricle was accessed and visualized with a 5 Fr Pigtail 145 (Angled) catheter. Left ventricular/Aortic Valve gradient assessed on pullback. Left ventriculogram was performed in SALAZAR projection. Closure device was deployed with a Fr TR Band (Regular) without any complications. The patient tolerated the procedure well and there were no complications associated with the procedure. Vessel Analysis The patient's coronary anatomy is right dominant. The left main coronary artery is a large size vessel with diffuse calcification noted throughout this vessel and without significant stenosis. The left main trifurcates to the left anterior descending, circumflex, and ramus. The left anterior descending artery is a large size vessel with diffuse calcification noted throughout this vessel and without significant stenosis. The first diagonal branch is a medium size vessel with diffuse calcification noted throughout this vessel and without significant stenosis. The circumflex artery is a medium size vessel with diffuse calcification noted throughout this vessel and without significant stenosis. There is a 55% stenosis in the distal segment. The first obtuse marginal branch is a small size vessel with diffuse calcification noted throughout this vessel and without significant stenosis. The ramus intermedius artery is a large size vessel with diffuse calcification noted throughout this vessel and without significant stenosis. Divides into upper and lower division The right coronary artery is a large size vessel with intimal irregularities and without significant stenosis. Very large calibre vessel with Shpheard's crook take off The right posterior descending artery is a medium size vessel with intimal irregularities and without significant stenosis. The right posterolateral branch is a medium size vessel with diffuse calcification noted throughout this vessel and without significant stenosis. Left Ventricle The left ventricle is normal in size with normal contractility. There was no cardiomyopathy. The left ventricular ejection fraction is estimated to be 65%. The left ventricular end diastolic pressure is 15-18 mmHg. There was no gradient across the aortic valve upon pullback. Pt. was in A fib Conclusion Non Obstructive CAD, limited to Distal Cx 55% non flow limiting and diffuse disease. Preserved Kv Fx. ef-60-65% ( A fib), EDP-15-18 mmof Hg. Recommendations Aggressive Medical TherapyCardiac Risk Reduction Program Resume eliquis 24 hours after for A Fib. Cc; dr. mederos
[2018-04-18] MEDS: Potassium Chloride 10 mEq ER Tab PO SCH (10:17)
[2018-04-18] MEDS ORDERED: Bacitracin 500 Units/gm Oint Foilpak UD ONE (11:29)
[2018-04-18] MEDS: Clotrimazole/Betamethasone Cream(15 gm) TOP SCH (17:23)
[2018-04-18 18:01] VITALS: RESP 20
[2018-04-19 06:39] VITALS: TEMP 98.5; O2SAT 98
[2018-04-19 06:51] LABS: BASO # 0.03 K/mm3 (0.0-2.0); BASO % 0.4 % (0.0-3.0); EOS # 0.1 (0.0-0.7); EOS % 1.6 % (1.5-5.0); GRAN # 4.85 (1.4-6.5); HEMOGLOBIN 13.5 g/dL (14.0-18.0); LYMPH # 1.4 (1.2-3.4); LYMPH % 18.5 % (22.0-35.0); MEAN CORPUSCULAR HGB CONC 32.6 g/dl (31.0-37.0); MONO % 13.5 % (1.0-6.0); RBC 4.5 10^6/uL (3.5-6.1); RED CELL DISTRIBUTION WIDTH 13.6 % (11.5-14.5); WHITE BLOOD COUNT 7.4 10^3/ul (4.5-11.0)
[2018-04-19 06:54] LABS: BLOOD UREA NITROGEN 16 mg/dL (7-21); CALCIUM 8.6 mg/dL (8.4-10.5); GFR AFRICAN-AMERICAN > 60; GFR NON-AFRICAN AMERICAN > 60
[2018-04-19] MEDS: Potassium Chloride 10 mEq ER Tab PO SCH (08:12)
--- NOTE | 2018-04-19 08:43 | CP.PCM.PN ---
Subjective - Date & Time of Evaluation Date of Evaluation: 04/19/18 Time of Evaluation: 06:15 - Subjective Subjective: Awake,lying in bed, no distress, no chest pain Reason for consultation and follow up: Atrial fibrillation, history of open heart surgery at [facility] in 1985 for VSD or ASD repair (hole in the heart), hypertension, post traumatic stress syndrome ([place] ), post cardiac catheterization, Seen and examined by me and Dr. Caldwell Objective - Vital Signs/Intake and Output Vital Signs (last 24 hours): Temp Pulse Resp BP Pulse Ox 98.5 F 80 20 128/88 98 04/19/18 06:00 04/19/18 06:00 04/19/18 06:00 04/19/18 06:00 04/19/18 06:00 - Medications Medications: Current Medications Acetaminophen (Tylenol 325mg Tab) 650 mg PO Q4H PRN PRN Reason: Pain, Mild (1-3) Apixaban (Eliquis) 5 mg PO BID [facility] PRN Reason: Protocol Atorvastatin Calcium (Lipitor) 40 mg PO DIN [facility] Last Admin: 04/18/18 17:23 Dose: 40 mg Betamethasone/Clotrimazole (Lotrisone) 0 gm TOP DAILY [facility] Last Admin: 04/18/18 17:23 Dose: 1 tcp Furosemide (Lasix) 40 mg PO DAILY [facility] Last Admin: 04/18/18 10:18 Dose: 40 mg Levalbuterol HCl (Xopenex) 0.63 mg IH TIDRESP PRN PRN Reason: Shortness of Breath Metoprolol Tartrate (Lopressor) 25 mg PO BID [facility] Last Admin: 04/18/18 17:22 Dose: 25 mg Montelukast Sodium (Singulair) 10 mg PO DAILY [facility] Last Admin: 04/18/18 10:17 Dose: 10 mg Potassium Chloride (Klor-Con 10) 10 meq PO BRK [facility] Last Admin: 04/19/18 08:12 Dose: 10 meq - Labs Labs: 04/19/18 06:00 04/19/18 06:00 PT 12.9 SECONDS (9.4-12.5) H 04/18/18 06:45 INR 1.12 (0.93-1.08) H 04/18/18 06:45 APTT 28.3 Seconds (25.1-36.5) 04/18/18 06:45 - Constitutional Appears: No Acute Distress - Head Exam Head Exam: NORMOCEPHALIC - Eye Exam Eye Exam: Normal appearance - ENT Exam ENT Exam: Mucous Membranes Moist - Respiratory Exam Respiratory Exam: Clear to Ausculation Bilateral, NORMAL BREATHING PATTERN - Cardiovascular Exam Cardiovascular Exam: +S1, +S2 Additional comments: Telemetry- atrial flutter 80's/min - GI/Abdominal Exam GI & Abdominal Exam: Soft, Normal Bowel Sounds - Extremities Exam Extremities Exam: Normal Capillary Refill Additional comments: left radial no hematoma,no bleeding (cath site) - Neurological Exam Neurological Exam: Alert, Awake, Oriented x3 - Psychiatric Exam Psychiatric exam: Normal Affect, Normal Mood - Skin Skin Exam: Intact, Normal Color, Warm Assessment and Plan - Assessment and Plan (Free Text) Assessment: A 73 year old who came in to the ER due to cellulitis and found to be on Atrial flutter/Atrial fibrillation. He has history of open heart surgery at [facility] in 1985 for VSD or ASD repair (hole in the heart), hypertension, post traumatic stress syndrome ([place] ). Cardiac work up showed abnormal stress test thus agreed to cardiac catheterization. Cardiac cath done yesterday and showed distal circumflex 55%, LVEF 65%. Plan: Cardiac catheterization done yesterday and showed non obstructive coronary artery disease, distal circumflex 55% LVEF 65% Will restart Eliquis 5 mg BID today No bleeding or Hematoma on left radial site No complaints of chest pain Telemetry Atrial flutter 80's/min On Lasix 40 mg daily,Lopressor 25 mg BID, potassium 10 meq daily. Continue current treatment Continue current medications Will follow up Plan and treatment discussed with Dr. Caldwell
[2018-04-19 09:37] VITALS: BP 104/49
[2018-04-19] MEDS: Clotrimazole/Betamethasone Cream(15 gm) TOP SCH (09:40)
[2018-04-19 10:42] VITALS: PULSE 135
--- NOTE | 2018-04-19 10:51 | CP.PCM.DIS ---
Provider - Provider Attending physician: Fermín Chen MD Primary care physician: Mari Rai MD Time Spent in preparation of Discharge (in minutes): 30 Diagnosis - Discharge Diagnosis (1) Atrial fibrillation Status: Acute Priority: High (2) Cellulitis Status: Acute Priority: High (3) History of open heart surgery Status: Chronic (4) Coronary artery disease Status: Acute Comment: non obstructive Hospital Course - Lab Results Lab Results: Most Recent Lab Values WBC 7.4 10^3/ul (4.5-11.0) 04/19/18 06:00 RBC 4.50 10^6/uL (3.5-6.1) 04/19/18 06:00 Hgb 13.5 g/dL (14.0-18.0) L 04/19/18 06:00 Hct 41.4 % (42.0-52.0) L 04/19/18 06:00 MCV 92.0 fl (80.0-105.0) 04/19/18 06:00 MCH 30.0 pg (25.0-35.0) 04/19/18 06:00 MCHC 32.6 g/dl (31.0-37.0) 04/19/18 06:00 RDW 13.6 % (11.5-14.5) 04/19/18 06:00 Plt Count 311 10^3/uL (120.0-450.0) 04/19/18 06:00 MPV 11.0 fl (7.0-11.0) 04/19/18 06:00 Gran % 66.0 % (50.0-68.0) 04/19/18 06:00 Lymph % (Auto) 18.5 % (22.0-35.0) L 04/19/18 06:00 [place] % (Auto) 13.5 % (1.0-6.0) H 04/19/18 06:00 Eos % (Auto) 1.6 % (1.5-5.0) 04/19/18 06:00 Baso % (Auto) 0.4 % (0.0-3.0) 04/19/18 06:00 Gran # 4.85 (1.4-6.5) 04/19/18 06:00 Lymph # (Auto) 1.4 (1.2-3.4) 04/19/18 06:00 [place] # (Auto) 1.0 (0.1-0.6) H 04/19/18 06:00 Eos # (Auto) 0.1 (0.0-0.7) 04/19/18 06:00 Baso # (Auto) 0.03 K/mm3 (0.0-2.0) 04/19/18 06:00 PT 12.9 SECONDS (9.4-12.5) H 04/18/18 06:45 INR 1.12 (0.93-1.08) H 04/18/18 06:45 APTT 28.3 Seconds (25.1-36.5) 04/18/18 06:45 Sodium 143 mmol/L (132-148) 04/19/18 06:00 Potassium 3.7 mmol/L (3.6-5.0) 04/19/18 06:00 Chloride 105 mmol/L (98-107) 04/19/18 06:00 Carbon Dioxide 28 mmol/L (21-33) 04/19/18 06:00 Anion Gap 14 (10-20) 04/19/18 06:00 BUN 16 mg/dL (7-21) 04/19/18 06:00 Creatinine 1.0 mg/dl (0.8-1.5) 04/19/18 06:00 Est GFR ( Amer) > 60 04/19/18 06:00 Est GFR (Non-Af Amer) > 60 04/19/18 06:00 Random Glucose 82 mg/dL (70-110) 04/19/18 06:00 Calcium 8.6 mg/dL (8.4-10.5) 04/19/18 06:00 Triglycerides 140 mg/dL (35-160) 04/18/18 06:45 Cholesterol 115 mg/dL (130-200) L 04/18/18 06:45 LDL Cholesterol Direct 70 mg/dL (0-129) 04/18/18 06:45 HDL Cholesterol 20 mg/dL (29-60) L 04/18/18 06:45 Blood Type A POSITIVE 04/18/18 06:48 Blood Type Confirm A POSITIVE 04/18/18 07:00 Antibody Screen Negative 04/18/18 06:48 BBK History Checked No verified bt 04/18/18 06:48 - Hospital Course Hospital Course: A 73 year old who came in to the ER due to cellulitis and found to be on Atrial flutter/Atrial fibrillation. 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 He was given antibiotics for the cellulitis. Afib converted to NSR prior to treatment. started on Eliquis and Aspirin. Cardiac work up showed abnormal stress test. At that time recommended cardiac catheterization however refused. He was discharged to TCU for reconditioning. after a day or two in TCU agreed to cardiac catheterization and was scheduled. Discontinued Eliquis 48 hours before procedure and also Aspirin. Cardiac cath done yesterday 04/18/18 and showed distal circumflex 55%, LVEF 65% . Left radial approach, no hematoma, no bleeding. Restarted today Eliquis prior to discharge home. Recommended TCU however wanted to go home. Discharge Exam - Head Exam Head Exam: NORMOCEPHALIC - Eye Exam Eye Exam: Normal appearance - ENT Exam ENT Exam: Mucous Membranes Moist - Respiratory Exam Respiratory Exam: Decreased Breath Sounds, NORMAL BREATHING PATTERN - Cardiovascular Exam Cardiovascular Exam: +S1, +S2 Additional comments: controlled afib 70-80's - GI/Abdominal Exam GI & Abdominal Exam: Normal Bowel Sounds, Soft - Extremities Exam Extremities exam: normal capillary refill - Neurological Exam Neurological exam: Alert, Oriented x3 - Skin Skin Exam: Intact, Normal Color, Warm Discharge Plan - Discharge Medications Prescriptions: Metoprolol Tartrate [Lopressor] 50 mg PO BID #60 tab - Follow Up Plan Condition: IMPROVED Disposition: HOME/ ROUTINE Patient education suggested?: Yes Instructions: Coronary Heart Disease, Cardiac Catheterization, Chest Pain (DC) Additional Instructions: Follow up in office 1-2 weeks Referrals: Mari Rai MD [Primary Care Provider] -
== END 2018-04-19 11:23 | disposition home or self-care (01) ==
LOC: CATH 06:27 → 2RNO 08:49 → CATH 04-19 11:23
PROVIDERS: ATTEND Internal Medicine Cardiovascular Disease
DX: I25.10 Atherosclerotic heart disease of native coronary artery without angina pectoris (principal); I10 Essential (primary) hypertension; I48.91 Unspecified atrial fibrillation; I48.92 Unspecified atrial flutter; L03.115 Cellulitis of right lower limb; I08.1 Rheumatic disorders of both mitral and tricuspid valves; E78.5 Hyperlipidemia, unspecified; F43.10 Post-traumatic stress disorder, unspecified; Z79.01 Long term (current) use of anticoagulants; Z87.891 Personal history of nicotine dependence

== ENCOUNTER 2019-03-20 17:23 | Inpatient (IN) | payer MEDICARE ==
[2019-03-20 17:44] VITALS: BMI 25.1
[2019-03-20] MEDS ORDERED: cefTRIAXone 1 gm 1 GM/100 ML BAG IVPB STA (17:52)
--- NOTE | 2019-03-20 17:56 | ED PDOC ---
Arrival/HPI - General Chief Complaint: Lower Extremity Problem/Injury Time Seen by Provider: 03/20/19 17:38 Historian: Patient - History of Present Illness Time/Duration: Other (five days) Symptom Onset: Gradual Symptom Course: Worsening Severity Level: Moderate Activities at Onset: Rest Associated Symptoms (Text): 03/20/19 17:53 Patient complains of a 5-day history of worsening left lower leg swelling erythema and warmth. He has a previous history of cellulitis in the left lower extremity. He was seen in the office today by and sent to the emergency department for evaluation treatment and admission. No fever or chills. No injury or trauma. No chest pain palpitations or dyspnea. Past Medical History - Past History Past History: No Previous - Infectious Disease Hx of Infectious Diseases: None - Tetanus Immunization Tetanus Immunization: Unknown - Past Medical History Past Medical History: No Previous - Cardiac Hx Cardiac Arrhythmia: Yes (on eliquis) Hx Pacemaker: No Hx Peripheral Vascular Disease: Yes - Pulmonary Hx Respiratory Disorders: No Hx Asthma: (pt denies having ashtma) - Neurological Hx Paralysis: No - HEENT Hx HEENT Disorder: Yes (eyeglasses) - Renal Hx Renal Disorder: No - Hematological/Oncological Hx Blood Transfusions: No - Integumentary Hx Dermatological Disorder: Yes Other/Comment: dark brown dry scab 2cm x 1cm to left knee, multiple red areas to knees, last fall 3 months ago,lle +2 pitting edema bright red warm skin, brght red skin to uppr left thigh and left groin - Musculoskeletal/Rheumatological Hx Musculoskeletal Disorders: No - Gastrointestinal Hx Gastrointestinal Disorders: Yes (CONSTIPATION) - Genitourinary/Gynecological Hx Genitourinary Disorders: No Hx Reproductive Disorders: No - Psychiatric Hx Emotional Abuse: No Hx Physical Abuse: No Hx Substance Use: No - Surgical History Hx Open Heart Surgery: Yes (repair hole) - Anesthesia Hx Anesthesia Reactions: No Hx Malignant Hyperthermia: No - Suicidal Assessment Feels Threatened In Home Enviroment: No Family/Social History - Physician Review Nursing Documentation Reviewed: Yes Family/Social History: Unknown Family HX Smoking Status: Former Smoker Hx Alcohol Use: Yes (occasional beer) Hx Substance Use: No Hx Substance Use Treatment: No Allergies/Home Meds Allergies/Adverse Reactions: Allergies No Known Allergies Allergy (Verified 03/20/19 17:40) Home Medications: Home Meds Medication Instructions Recorded Confirmed Atorvastatin [Lipitor] 40 mg PO DIN 04/11/18 04/19/18 Montelukast [Singulair] 10 mg PO DAILY 04/11/18 04/19/18 Potassium Gluconate [Potassium] 10 meq PO DAILY 04/11/18 04/19/18 Metoprolol Tartrate [Lopressor] 50 mg PO BID 04/19/18 04/19/18 Review of Systems - Physician Review All systems were reviewed & negative as marked: Yes - Review of Systems Constitutional: Fatigue. absent: Fevers Respiratory: absent: SOB, Cough, Wheezing Cardiovascular: absent: Chest Pain, Palpitations, Syncope Gastrointestinal: absent: Abdominal Pain, Diarrhea, Vomiting Genitourinary Male: absent: Dysuria, Frequency, Hematuria Neurological: absent: Headache, Dizziness, Focal Weakness Physical Exam Temperature: Afebrile Blood Pressure: Normal Pulse: Regular Respiratory Rate: Normal Appearance: Positive for: Well-Appearing, Non-Toxic, Comfortable Pain Distress: None Mental Status: Positive for: Alert and Oriented X 3 - Systems Exam Head: Present: Atraumatic, Normocephalic Pupils: Present: PERRL Extroacular Muscles: Present: EOMI Conjunctiva: Present: Normal Mouth: Present: Moist Mucous Membranes Pharnyx: No: ERYTHEMA, EXUDATE, TONSILS ENLARGED Neck: Present: Normal Range of Motion Respiratory/Chest: Present: Clear to Auscultation, Good Air Exchange, Decreased Breath Sounds. No: Respiratory Distress, Accessory Muscle Use Cardiovascular: Present: Regular Rate and Rhythm, Irregular Rhythm Abdomen: No: Tenderness, Distention, Peritoneal Signs, Rebound, Guarding Upper Extremity: Present: Normal Inspection, Other (Left index finger fingernail ecchymosis). No: Cyanosis, Edema Lower Extremity: Present: Edema, NORMAL PULSES, Normal ROM, Swelling, Erythema, Neurovascularly Intact, Other (Entire left lower leg from knee to toes is erythematous swollen and warm. With 2+ edema.). No: Normal Inspection, CALF TENDERNESS, Cyanosis, Josiane's Sign, Tenderness, Deformity Neurological: Present: GCS=15, CN II-XII Intact, Speech Normal, Motor Func Grossly Intact Skin: Present: Warm, Dry, Normal Color, Other (Left lower leg cellulitis as above.). No: Rashes Psychiatric: Present: Alert, Oriented x 3, Normal Insight, Normal Concentration Medical Decision Making ED Course and Treatment: 03/20/19 19:02 EKG shows atrial fibrillation rate approximately 95 with a right bundle branch block and no acute ST or T wave changes. 03/20/19 19:[address] Rai who requests that consultation with infectious disease be obtained. Order was placed for her. - RAD Interpretation Radiology Orders: 03/20/19 17:51 CHEST PORTABLE [RAD] Stat DUPLEX LOWER EXTRM VEIN LEFT [US] Stat Venous Doppler of the left lower extremity as read by the radiologist is negative for DVT. Chest 1 view shows hardware and cardiomegaly with no infiltrate or effusion. Optical Coating Technician: ED Physician, Radiologist - Medication Orders Current Medication Orders: Ceftriaxone Sodium (Rocephin 1 Gram Ivpb) 1 gm in 100 mls @ 200 mls/hr IVPB STAT STA; Protocol Stop: 03/20/19 18:21 Disposition/Present on Arrival - Present on Arrival Any Indicators Present on Arrival: No History of DVT/PE: No History of Uncontrolled Diabetes: No Urinary Catheter: No History of Decub. Ulcer: No History Surgical Site Infection Following: None - Disposition Have Diagnosis and Disposition been Completed?: Yes Diagnosis: Cellulitis Disposition: HOSPITALIZED Disposition Time: 18:43 Patient Plan: Admission Patient Problems: Current Active Problems Problem Status Onset Cellulitis Acute Condition: FAIR
[2019-03-20 18:29] LABS: BASO # 0.02 K/mm3 (0.0-2.0); BASO % 0.2 % (0.0-3.0); EOS % 0.1 % (1.5-5.0); HEMOGLOBIN 13.4 g/dL (14.0-18.0); LYMPH # 1.3 (1.2-3.4); LYMPH % 13.9 % (22.0-35.0); MEAN CELL VOLUME 93.7 fl (80.0-105.0); MEAN CORPUSCULAR HEMOGLOBIN 30.2 pg (25.0-35.0); MEAN CORPUSCULAR HGB CONC 32.2 g/dl (31.0-37.0); MEAN PLATELET VOLUME 10.3 fl (7.0-11.0); MONO % 10.3 % (1.0-6.0); RBC 4.44 10^6/uL (3.5-6.1); RED CELL DISTRIBUTION WIDTH 13.3 % (11.5-14.5); VENOUS BLOOD GAS BASE EXCESS 1.2 mmol/L (0.0-2.0); VENOUS BLOOD GAS PO2 18 mm/Hg (30-55); VENOUS BLOOD PH 7.35 (7.32-7.43); WHITE BLOOD COUNT 9.5 10^3/uL (4.5-11.0)
[2019-03-20 18:36] LABS: INR 1.59; PARTIAL THROMBOPLASTIN TIME 33.7 Seconds (26.9-38.3); PROTHROMBIN TIME 17.7 SECONDS (9.4-12.5)
[2019-03-20 18:41] LABS: ALB/GLOB RATIO 0.9 (1.1-1.8); ALBUMIN 3.4 g/dL (3.0-4.8); ALT/SGPT 12 U/L (7-56); AST/SGOT 27 U/L (17-59); BLOOD UREA NITROGEN 21 mg/dL (7-21); CALCIUM 8.7 mg/dL (8.4-10.5); GFR NON-AFRICAN AMERICAN > 60
[2019-03-20 18:52] LABS: TROPONIN I 0.01 ng/mL
[2019-03-20 21:41] LABS: URINE APPEARANCE SLIGHT-CLOUDY (CLEAR); URINE BILIRUBIN NEGATIVE (NEGATIVE); URINE BLOOD TRACE-INTACT (NEGATIVE); URINE COLOR DARK YELLOW (YELLOW); URINE GLUCOSE (UA) NEGATIVE (NEGATIVE); URINE LEUKOCYTE ESTERASE NEGATIVE Leu/uL (NEGATIVE); URINE PROTEIN >=300 mg/dL (<30 mg/dL)
[2019-03-20 21:46] LABS: URINE EPITHELIAL CELLS 0 - 2 /hpf (0-5); URINE RBC 0 - 2 /hpf (0-2); URINE WBC 0 - 2 /hpf (0-6)
--- NOTE | 2019-03-20 22:19 | CP.PCM.PN ---
Subjective - Date & Time of Evaluation Date of Evaluation: 03/20/19 Time of Evaluation: 22:17 - Subjective Subjective: S:Patient was seen at beside. rn residential had ordered Eliquis 5 mg po x 1 and I was asked to co-sign for it. Patient has no complaints. Medical record was reviewed. O:VSS Not in distress. LUNGS: Normal breathing pattern. A:Med request. P:Eliquis 5 mg PO X 1. Objective - Vital Signs/Intake and Output Vital Signs (last 24 hours): Temp Pulse Resp BP Pulse Ox 97.9 F 79 20 125/64 98 03/20/19 17:53 03/20/19 21:25 03/20/19 21:25 03/20/19 21:25 03/20/19 21:25 - Labs Labs: 03/20/19 18:15 03/20/19 18:15 PT 17.7 SECONDS (9.4-12.5) H 03/20/19 18:15 INR 1.59 03/20/19 18:15 APTT 33.7 Seconds (26.9-38.3) 03/20/19 18:15
[2019-03-21] MEDS: Ceftaroline 600 MG in Sodium Chloride 0.9% 100 ML IVPB SCH ×2 (00:24→22:16)
--- NOTE | 2019-03-21 09:05 | RAD ---
Date of service: 03/20/2019 HISTORY: admit COMPARISON: Chest radiograph dated 04/11/2018 TECHNIQUE: 1 view obtained. FINDINGS: LUNGS: Stable chronic prominence of the bilateral interstitial markings. Basilar atelectasis. PLEURA: Chronic elevation of the left hemidiaphragm. Significant pleural effusion identified, no pneumothorax apparent. CARDIOVASCULAR: Prior sternotomy with sternal wires and surgical clips in place. Aortic atherosclerotic calcifications. Cardiomediastinal silhouette stably enlarged. OSSEOUS STRUCTURES: Unchanged. VISUALIZED UPPER ABDOMEN: Normal. OTHER FINDINGS: None. IMPRESSION: No active disease.
[2019-03-21] MEDS: Clotrimazole 1% Cream(30 gm) TOP SCH ×2 (10:20→17:37)
[2019-03-21] MEDS: Clotrimazole/Betamethasone Cream(15 gm) TOP SCH (11:11)
--- NOTE | 2019-03-21 15:05 | CARD ---
APPROVED REPORT Date of service: 03/20/2019 EKG Measurement Heart [id number] <Conclusion> Poor data quality, interpretation may be adversely affected Atrial fibrillation Right bundle branch block Abnormal ECG
--- NOTE | 2019-03-22 01:55 | CON ---
DATE: 03/21/2019 LOCATION: Patient was seen earlier today in room 364, bed 1. CHIEF COMPLAINT: Left leg erythema since 5 days duration. HISTORY OF PRESENT ILLNESS: This is a 74-year-old male with no significant past medical history. Patient denies any hypertension. No diabetes. He states he has enlarged heart. He has atrial fibrillation, history of kidney disease, who has had left leg infection and was admitted for that. Patient states he had an open heart surgery, repair of a hole at [facility], he is not sure what year, and he does suffer from many years of depression and anxiety. He is a [place] , posttraumatic stress syndrome. According to nurse's notes, he has high blood pressure. He denies high blood pressure. Patient was seen in the emergency room by Dr. Sacha Miller. Patient has been complaining of left leg erythema and warmth. No fevers. No chills. No nausea. No vomiting. No chest pain. PAST MEDICAL HISTORY: Significant for cardiomegaly, renal disease, atrial fibrillation, depression, posttraumatic stress syndrome. PAST SURGICAL HISTORY: Significant for repair of a hole in his heart at [facility]. ALLERGIES: PATIENT HAS NO KNOWN ALLERGIES. MEDICATIONS AT HOME: Include patient to be on Singulair, Lopressor, inhaler, Lasix, and Lipitor. PHYSICAL EXAMINATION: GENERAL: Patient is in bed. VITAL SIGNS: Temperature of 97, blood pressure is 108/60, respiratory rate of 20, and heart rate of 74. Patient's heart rate went up to 93. HEENT: Unremarkable. NECK: Supple. LUNGS: Decreased breath sounds. HEART: Normal S1 and S2. ABDOMEN: Soft and nontender. SKIN: Reveals left leg with erythema and left foot also has erythema. LABORATORY DATA: Reveals a white count of 9.5. Sed rate is 106. Coagulation is noted. Chemistries reviewed. Patient's C-reactive protein is 81. Urinalysis is noted. Microbiology is pending. Cultures in 2018, history, no growth in blood cultures that were done in 09/2018 and also in 03/2018. ASSESSMENT AND PLAN: This is a 74-year-old male who has a history of renal disease, depression, atrial fibrillation, cardiomegaly, high cholesterol, posttraumatic stress syndrome, now with left leg and left foot cellulitis with significant tinea in between his toes. We will treat the patient with Teflaro and we will check on the Dopplers. She will have vascular workup, and check on the blood cultures, and follow closely with you. Because the patient has had history of kidney failure may be hesitant to use vancomycin, but used Teflaro. Vicente Chan MD
--- NOTE | 2019-03-22 02:03 | HP ---
This case was discussed with Dr. Rai she is inagreement with treatment plan. DATE OF EXAM: 03/21/2019 Chief Complaint: Left lower extremity pain, and swelling. HISTORY OF PRESENT ILLNESS: This is a 74-year-old man, who came into the office yesterday with complaints of left foot swelling and pain. He was sent to the emergency room with suspected cellulitis, and /or DVT. PAST MEDICAL HISTORY: Cellulitis of the right lower limb, hypercholesterolemia, essential hypertension, hyperlipidemia, cardiomegaly, AFib, COPD, coronary artery disease, bypass graft, and dementia. SOCIAL HISTORY: The patient lives alone in the community. Does not smoke. Drinks occasionally. REVIEW OF SYSTEMS: I saw the patient today at bedside. He was alert. He was oriented x2 to 3. Denies shortness of breath, chest pain, facial pain, sinus problem, palpitations, cough, or hemoptysis. No heartburn or abdominal pain. No hematuria or hematochezia, fever or chills. Complained of left lower limb pain including the toes. PHYSICAL EXAMINATION: VITAL SIGNS: Temperature 97.6, pulse rate 74, blood pressure 100/48, respiratory rate 20, and the patient is saturating at 99% on room air. GENERAL: The patient appears chronically ill. No acute distress. HEENT: Normocephalic. PERRLA. Mucous membranes moist. NECK: Supple. Normal inspection. RESPIRATORY: Wheeze, cleared with cough. No other adventitious breath sounds. CARDIOVASCULAR: S1 and S2. No murmur, no gallop. ABDOMEN: Soft and nontender. No guarding, no tenderness. Positive bowel sounds. SKIN: Warm to touch. Right leg is without edema. Left leg has +3 edema, erythema, warmth to lower extremity. Cellulitis appreciated. NEUROLOGIC: The patient is alert and oriented x2 to 3. Cranial nerves II through XII are intact. cognitive deficits appreciated. MEDICATIONS: The patient is currently on Tylenol 325 mg, Eliquis 5 mg p.o. b.i.d., Lipitor 40 mg, Lotrisone b.i.d. to affected area, ceftaroline fosamil 600 mg IV piggyback every 12 hours, Lasix 40 mg IV piggyback, Lopressor 50 mg p.o. b.i.d., and montelukast 10 mg p.o. daily. LABORATORY DATA: White blood cells 9.5, hemoglobin 13.4, hematocrit 41.6, neutrophils 75.5, and ESR of 106. ASSESSMENT AND PLAN: This is a 74-year-old male with cellulitis of the lower left limb. The patient has history of cellulitis in the right limb, now it is apparent in the left limb. The patient has history of chronic obstructive pulmonary disease, hypertension, and hyperlipidemia. ID, Pulmonary and Cariology is on the case. The patient will continue IV antibiotics, Eliquis, Lipitor, and Lopressor. We will follow the patient. AGREED ALL ABOVE .NOTED ALL LABS , MEDS , AND PN OF [employer] , REPEAT LABS , WILL F/U Jose Alfredo Aguilar APN Mari Rai MD GEORGE
[2019-03-22] MEDS: Clotrimazole 1% Cream(30 gm) TOP SCH ×2 (09:28→17:10)
[2019-03-22] MEDS: Clotrimazole/Betamethasone Cream(15 gm) TOP SCH (09:28)
[2019-03-22] MEDS: Ceftaroline 600 MG in Sodium Chloride 0.9% 100 ML IVPB SCH ×2 (09:28→22:08)
--- NOTE | 2019-03-22 23:36 | PN ---
DATE: 03/22/2019 SUBJECTIVE: The patient is in bed, in no acute distress, nontoxic. PHYSICAL EXAMINATION VITAL SIGNS: Temperature is 97, blood pressure is 109/70, respiratory rate of 20, heart rate of 81. HEENT: Unremarkable. NECK: Supple. LUNGS: Have decreased breath sounds. HEART: Normal S1, S2. ABDOMEN: Soft. LABORATORY DATA: White count of 9.5, hemoglobin of 13. Sed rate is 106. Chemistries reveals a BUN of 21, creatinine of 1.1. Urinalysis is noted. Blood cultures are negative. REVIEW OF ORDERS: Reveals the patient to have Teflaro to be active. ASSESSMENT AND PLAN: A 74-year-old male with history of renal disease, depression, atrial fibrillation, cardiomegaly, high cholesterol, post traumatic stress syndrome with a left leg and left foot cellulitis, significant tinea. A vascular workup in progress. We will continue to follow. Check on the ultrasound. Cultures thus far are negative. Vicente Chan MD
[2019-03-23 08:25] VITALS: RESP 20; TEMP 97.9; O2SAT 95
[2019-03-23] MEDS: Clotrimazole 1% Cream(30 gm) TOP SCH ×2 (10:31→17:47)
[2019-03-23] MEDS: Clotrimazole/Betamethasone Cream(15 gm) TOP SCH (10:31)
[2019-03-23] MEDS: Ceftaroline 600 MG in Sodium Chloride 0.9% 100 ML IVPB SCH (10:31)
[2019-03-23 10:33] LABS: HEMOGLOBIN 13.7 g/dL (14.0-18.0); MEAN CORPUSCULAR HEMOGLOBIN 30.6 pg (25.0-35.0); MEAN CORPUSCULAR HGB CONC 32.6 g/dl (31.0-37.0); RBC 4.47 10^6/uL (3.5-6.1); RED CELL DISTRIBUTION WIDTH 13.4 % (11.5-14.5); WHITE BLOOD COUNT 9.4 10^3/uL (4.5-11.0)
[2019-03-23 10:41] LABS: ALB/GLOB RATIO 0.9 (1.1-1.8); ALBUMIN 3.4 g/dL (3.0-4.8); ALT/SGPT 8 U/L (7-56); AST/SGOT 24 U/L (17-59); BLOOD UREA NITROGEN 22 mg/dL (7-21); CALCIUM 9.1 mg/dL (8.4-10.5); GFR NON-AFRICAN AMERICAN 59
--- NOTE | 2019-03-23 14:18 | CP.PCM.CON ---
History of Present Illness - History of Present Illness History of Present Illness: Podiatry consult - Drs. Gr/Dilia 74M seen and evaluated at beside this AM for LLE cellulitis. States that he was admitted a few days ago with diffuse redness up to the the top of his ankle and at his foot. States that he has gotten the same redness in his foot 3 times over the past year. States he does not have a foot doctor that he sees regularly. Denies n/v/f/c/sob and has no other acute complaints today. States he may be going home tomorrow since he has noticed much improvement in the redness in his foot since he was admitted PMHx: denies All: NKDA Past Patient History - Infectious Disease Hx of Infectious Diseases: None - Tetanus Immunizations Tetanus Immunization: Unknown - Past Social History Smoking Status: Never Smoked - CARDIAC Hx Cardia Arrhythmia: Yes (on eliquis) Hx Pacemaker: No Hx Peripheral Vascular Disease: Yes - PULMONARY Hx Respiratory Disorders: No Hx Asthma: (pt denies having ashtma) - NEUROLOGICAL Hx Neurological Disorder: No - HEENT Hx HEENT Problems: Yes (eyeglasses) - RENAL Hx Chronic Kidney Disease: No - HEMATOLOGICAL/ONCOLOGICAL Hx Blood Disorders: No - INTEGUMENTARY Hx Dermatological Problems: Yes Other/Comment: dark brown dry scab 2cm x 1cm to left knee, multiple red areas to knees, last fall 3 months ago,lle +2 pitting edema bright red warm skin, brght red skin to uppr left thigh and left groin - MUSCULOSKELETAL/RHEUMATOLOGICAL Hx Musculoskeletal Disorders: No - GASTROINTESTINAL Hx Gastrointestinal Disorders: Yes (CONSTIPATION) - GENITOURINARY/GYNECOLOGICAL Hx Genitourinary Disorders: No - PSYCHIATRIC Hx Emotional Abuse: No Hx Physical Abuse: No - SURGICAL HISTORY Hx Open Heart Surgery: Yes (repair hole) - ANESTHESIA Hx Anesthesia Reactions: No Hx Malignant Hyperthermia: No Meds Allergies/Adverse Reactions: Allergies Allergy/AdvReac Type Severity Reaction Status Date / Time No Known Allergies Allergy Verified 03/20/19 17:40 - Medications Medications: Current Medications Acetaminophen (Tylenol 325mg Tab) 650 mg PO Q4H PRN PRN Reason: Pain, Mild (1-3) Apixaban (Eliquis) 5 mg PO BID KATRIN; Protocol Last Admin: 03/23/19 10:30 Dose: 5 mg Atorvastatin Calcium (Lipitor) 40 mg PO DIN [facility] Last Admin: 03/22/19 17:09 Dose: 40 mg Betamethasone/Clotrimazole (Lotrisone) 0 gm TOP DAILY [facility] Last Admin: 03/23/19 10:31 Dose: 1 applic Clotrimazole (Lotrimin 1%) 1 gm TOP BID [facility] Stop: 03/30/19 10:00 Last Admin: 03/23/19 10:31 Dose: 1 applic Furosemide (Lasix) 40 mg IVP Q12 [facility] Last Admin: 03/23/19 10:30 Dose: 40 mg Ceftaroline Fosamil 600 mg/ (Sodium Chloride) 100 mls @ 100 mls/hr IVPB Q12 [facility]; Protocol Stop: 03/27/19 23:01 Last Admin: 03/23/19 10:31 Dose: 100 mls/hr Metoprolol Tartrate (Lopressor) 50 mg PO BID [facility] Last Admin: 03/23/19 10:31 Dose: 50 mg Montelukast Sodium (Singulair) 10 mg PO DAILY [facility] Last Admin: 03/23/19 10:31 Dose: 10 mg Physical Exam - Constitutional Appears: Non-toxic - Head Exam Head Exam: ATRAUMATIC - Extremities Exam Additional comments: LLE focused exam VASC: DP and PT pulses palpable; normal vascular exam; mild edema noted to the dorsum of the midfoot medially DERM: no open lesions or wound; erythema present at the dorsal forefoot; skin temp and turgor wnl ORTHO: no pain upon palpation of the foot or ankle; no pain or discomfort on ROM NEURO: gross and protective sensation intact - Neurological Exam Neurological exam: Alert, Oriented x3 - Psychiatric Exam Psychiatric exam: Normal Affect Results - Vital Signs Recent Vital Signs: Last Vital Signs Temp 97.9 F 03/23/19 08:24 Pulse 76 03/23/19 10:31 Resp 20 03/23/19 08:24 BP 122/83 03/23/19 10:31 Pulse Ox 95 03/23/19 08:24 - Labs Result Diagrams: 03/23/19 10:20 03/23/19 10:20 Labs: Laboratory Results - last 24 hr 03/23/19 03/23/19 10:20 10:20 WBC 9.4 RBC 4.47 Hgb 13.7 L Hct 42.0 MCV 94.0 MCH 30.6 MCHC 32.6 RDW 13.4 Plt Count 417 MPV 10.0 Sodium 139 Potassium 4.1 Chloride 98 Carbon Dioxide 34 H Anion Gap 11 BUN 22 H Creatinine 1.2 Est GFR ( Amer) > 60 Est GFR (Non-Af Amer) 59 Random Glucose 119 H Calcium 9.1 Total Bilirubin 0.7 AST 24 ALT 8 Alkaline Phosphatase 98 Total Protein 7.2 Albumin 3.4 Globulin 3.8 Albumin/Globulin Ratio 0.9 L Assessment & Plan - Assessment and Plan (Free Text) Assessment: 74M with left foot cellulitis Plan: Patient seen and evaluated VSS, WBC 9.4 Continue abx per ID, can transition to PO per ID and stable for d/c from podiatry standpoint Lotrisone for feet Educated on footcare F/u with Dr. Dobbs upon d/c Podiatry to sign off Thank you for the consult - Date & Time Date: 03/23/19 Time: 14:24
[2019-03-23] MEDS ORDERED: Pneumococcal 23-Valent Vaccine IM ONE (16:37)
--- NOTE | 2019-03-23 16:42 | PN ---
DATE: 03/23/2019 LOCATION: Room 364, bed 1. SUBJECTIVE: The patient was seen earlier this morning. PHYSICAL EXAMINATION: VITAL SIGNS: Temperature is 98, blood pressure is 112/70, respiratory rate of 16. HEENT: Unremarkable. NECK: Supple. LUNGS: Decreased breath sounds. HEART: Normal S1 and S2. ABDOMEN: Soft, nontender. LABORATORY DATA: Reveals the patient's labs are unremarkable. The cultures are negative. Examination of foot has greatly improved. ASSESSMENT AND PLAN: A 74-year-old male with left foot cellulitis secondary to significant tinea. Complete the tinea therapy for 10 days and may discontinue and use p.o. doxycycline and p.o. Augmentin to complete therapy. Imaging is reviewed. Vicente Chan MD
[2019-03-23 17:49] VITALS: BP 103/54; PULSE 96
[2019-03-23] MEDS ORDERED: Amoxicillin-Clav 875-125 mg Tab PO SCH (22:00)
== END 2019-03-23 18:21 | disposition home or self-care (01) | DRG 603 ==
LOC: ED 17:23 → ERH 18:53 → 3RNO 21:40 → OBSVTOIN 03-22 18:07
PROVIDERS: ADMIT Internal Medicine; ATTEND Internal Medicine
PROC: 3E0234Z Introduction of Serum, Toxoid and Vaccine into Muscle, Percutaneous Approach (ICD-10-PCS; principal; 2019-03-23)
DX: L03.116 Cellulitis of left lower limb (principal); I73.9 Peripheral vascular disease, unspecified; I48.91 Unspecified atrial fibrillation; I11.9 Hypertensive heart disease without heart failure; I25.10 Atherosclerotic heart disease of native coronary artery without angina pectoris; J44.9 Chronic obstructive pulmonary disease, unspecified; F43.10 Post-traumatic stress disorder, unspecified; B35.9 Dermatophytosis, unspecified; E78.00 Pure hypercholesterolemia, unspecified; E78.5 Hyperlipidemia, unspecified; F03.90 Unspecified dementia, unspecified severity, without behavioral disturbance, psychotic disturbance, mood disturbance, and anxiety; I51.7 Cardiomegaly; F32.89 Other specified depressive episodes; Z91.81 History of falling; Z23 Encounter for immunization